=== PATIENT | female | born 1990 | race Caucasian/White ===

== ENCOUNTER → 2017-12-06 15:48 | Outpatient (CLI) | payer MEDICAID, SELFPAY ==
[2017-12-06 17:13] LABS: ALB/GLOB Ratio 0.7 RATIO (0.9-2.4); AST(SGOT) 15 U/L (15-37); Alanine Aminotransfer ALT/SGPT 13 U/L (13-56); Albumin, Serum 2.7 g/dL (3.2-5.0); Alkaline Phosphatase 71 U/L (45-117); Anion Gap 9 (5-15); BUN 7 mg/dL (7-18); BUN/Creat Ratio 13.9 RATIO (10-20); Calcium,Total 8.5 mg/dL (8.5-10.1); Chloride 107 mmol/L (98-107); EST Glomerular Filtration Rate 154 mL/min (>60); Est Glom Filt Rate - Afr Amer 186 mL/min (>60); Glucose 88 mg/dL (74-106); Potassium 3.7 mmol/L (3.5-5.1); Protein, Total 6.7 g/dL (6.4-8.2); Sodium Level 140 mmol/L (136-145)
== END ==
PROVIDERS: Visit Provider Obstetrics & Gynecology
DX: Z87.59 Personal history of other complications of pregnancy, childbirth and the puerperium (principal)
CPT/HCPCS: 36415; 80053

== ENCOUNTER → 2017-12-06 18:02 | Outpatient (CLI) | payer MEDICAID, SELFPAY ==
[2017-12-06 18:57] LABS: Protein:Creat Ratio 160 mg/g CRE (0-200)
== END ==
PROVIDERS: Visit Provider Obstetrics & Gynecology
DX: O10.919 Unspecified pre-existing hypertension complicating pregnancy, unspecified trimester (principal); Z3A.00 Weeks of gestation of pregnancy not specified; Z87.59 Personal history of other complications of pregnancy, childbirth and the puerperium
CPT/HCPCS: 36415; 80053; 82570; 84156

== ENCOUNTER → 2017-12-21 10:52 | Outpatient (CLI) | payer MEDICAID, SELFPAY ==
[2017-12-21 12:11] LABS: Absolute Lymphocyte Count 1.91 X10^3/ul (0.83-4.51); Absolute Neutrophil Count 7.3 X10^3/uL (2.0-7.7); Basophil# 0.04 X10^3/uL; Basophil% 0.4 % (0-1); Eosinophil# 0.19 X10^3/uL; Eosinophils% 1.9 % (0-5); Hematocrit 34.2 % (37-47); Hemoglobin 10.9 g/dl (12.0-15.0); Lymphocyte # 1.91 X10^3/ul (4.0); Lymphocyte % 18.8 % (19-41); Mean Corp Hgb Conc 31.9 g/gl (32-36); Mean Corpuscular Hgb 27.7 pg (27.0-32.0); Mean Corpuscular Volume 86.8 fL (81-99); Mean Platelet Vol. 9.9 fl (6.2-12.0); Monocyte# 0.66 X10^3/uL; Monocyte% 6.5 % (0-10); Neutrophil % 71.9 % (47-70); Platelet Count 240 K/mm3 (150-450); RBC Distribution Width CV 12.8 % (11.6-14.6); RBC Distribution Width SD 39.7 fl (35.1-43.9); Red Blood Count 3.94 M/mm3 (4.2-5.4); White Blood Count 10.2 K/mm3 (4.4-11.0)
[2017-12-21 12:15] LABS: POSITIVE COUNT NO; POSITIVE DIFFERENTIAL NO; POSITIVE MORPHOLOGY NO
[2017-12-21 12:27] LABS: Glucose Challenge Gest 1H 50g 87 mg/dL (70-140)
== END ==
PROVIDERS: Nurse Practitioner Women's Health; Visit Provider Obstetrics & Gynecology
DX: O09.90 Supervision of high risk pregnancy, unspecified, unspecified trimester (principal); Z3A.00 Weeks of gestation of pregnancy not specified
CPT/HCPCS: 36415; 82950; 85025

== ENCOUNTER → 2017-12-21 12:37 | Outpatient (CLI) | payer MEDICAID, SELFPAY | PROVIDERS: Visit Provider Nurse Practitioner Women's Health | DX: O09.90 Supervision of high risk pregnancy, unspecified, unspecified trimester (principal); O10.919 Unspecified pre-existing hypertension complicating pregnancy, unspecified trimester; Z98.891 History of uterine scar from previous surgery; Z87.59 Personal history of other complications of pregnancy, childbirth and the puerperium; Z3A.26 26 weeks gestation of pregnancy | CPT/HCPCS: 36415; 82950; 85025; 87086; 87088 ==

== ENCOUNTER → 2018-01-26 11:40 | Outpatient (CLI) | payer MEDICAID, SELFPAY ==
--- NOTE | 2018-01-26 11:40 | DT_ITS ---
This patient was seen during an EMR downtime January 23, 2018 - January 30, 2018. This patient may have a combination of paper and electronic documentation or all paper documentation. All documentation is viewable within the e-chart portion of [employer] for each patient visit.
[2018-01-31 03:50] LABS: Protein:Creat Ratio 250 mg/g CRE (0-200)
[2018-01-31 03:51] LABS: BUN 7 mg/dL (7-18); Glucose 100 mg/dL (74-106)
[2018-01-31 03:52] LABS: ALB/GLOB Ratio 0.6 RATIO (0.9-2.4); AST(SGOT) 16 U/L (15-37); Alanine Aminotransfer ALT/SGPT 15 U/L (13-56); Albumin, Serum 2.6 g/dL (3.2-5.0); Alkaline Phosphatase 101 U/L (45-117); Anion Gap 9 (5-15); BUN/Creat Ratio 11.7 RATIO (10-20); Chloride 105 mmol/L (98-107); EST Glomerular Filtration Rate 127 mL/min (>60); Est Glom Filt Rate - Afr Amer 154 mL/min (>60); Globulin 4.2 g/dL (2.2-4.2); LDH 197 U/L (84-246); Potassium 3.3 mmol/L (3.5-5.1); Protein, Total 6.8 g/dL (6.4-8.2); Sodium Level 139 mmol/L (136-145); Uric Acid 2.9 mg/dL (2.6-6.0)
[2018-01-31 03:58] LABS: ROM Internal Control Test YES-OK TO RESULT pt. (Internal QC); ROM Patient Test Negative (Negative)
[2018-01-31 04:02] LABS: Hematocrit 34.9 % (37-47); Mean Corp Hgb Conc 31.5 g/gl (32-36); Mean Corpuscular Hgb 26.3 pg (27.0-32.0); Mean Corpuscular Volume 83.3 fL (81-99); Mean Platelet Vol. 9.3 fl (6.2-12.0); Platelet Count 263 K/mm3 (150-450); RBC Distribution Width CV 12.8 % (11.6-14.6); RBC Distribution Width SD 38.5 fl (35.1-43.9); Red Blood Count 4.19 M/mm3 (4.2-5.4); White Blood Count 10.9 K/mm3 (4.4-11.0)
[2018-01-31 04:03] LABS: Absolute Lymphocyte Count 2.02 X10^3/ul (0.83-4.51); Absolute Neutrophil Count 8.2 X10^3/uL (2.0-7.7); Basophil# 0.03 X10^3/uL; Basophil% 0.3 % (0-1); Eosinophils% 0.9 % (0-5); Lymphocyte # 2.02 X10^3/ul (4.0); Lymphocyte % 18.5 % (19-41); Monocyte# 0.52 X10^3/uL; Monocyte% 4.8 % (0-10); Neutrophil # 8.22 X10^3/uL (2.7-7.7); POSITIVE COUNT NO; POSITIVE DIFFERENTIAL NO; POSITIVE MORPHOLOGY NO
== END ==
PROVIDERS: Visit Provider Nurse Practitioner Women's Health
DX: O09.93 Supervision of high risk pregnancy, unspecified, third trimester (principal); I10 Essential (primary) hypertension; N89.8 Other specified noninflammatory disorders of vagina; Z3A.00 Weeks of gestation of pregnancy not specified
CPT/HCPCS: 80053; 82570; 83615; 84112; 84156; 84550; 85025

== ENCOUNTER 2018-01-30 12:10 | Outpatient (CLI) | payer MEDICAID, SELFPAY ==
--- NOTE | 2018-01-30 12:10 | DT_ITS ---
This patient was seen during an EMR downtime January 23, 2018 - January 30, 2018. This patient may have a combination of paper and electronic documentation or all paper documentation. All documentation is viewable within the e-chart portion of [facility] for each patient visit.
--- NOTE | 2018-01-30 12:28 | US_ITS ---
STUDY: SECOND AND THIRD TRIMESTER OBSTETRICAL ULTRASOUND - LIMITED REASON FOR EXAM: Female, 27 years old. dating. LMP: June 16, 2017. PRIOR ULTRASOUND: None. TECHNIQUE: Transabdominal and transvaginal ultrasound evaluation was performed. FINDINGS: There is a single intrauterine fetus. The fetus is in a cephalic presentation. There is demonstrated cardiac activity with a heart rate of 124 bpm. There is a normal amniotic fluid volume. The largest amniotic fluid pocket measures 6.8 cm. The amniotic fluid index (CARIN) is 14.7 cm. The placenta is anterior in location and is not low lying. There are Grade 1 placental changes. The cervix measures 3.4 cm cm in length on transvaginal exam. BIOMETRY: BPD: 8.1 cm: 32 weeks, 5 days HC: 30.1 cm: 33 weeks, 3 days AC: 28.1 cm: 32 weeks, 1 days FL: 6.0 cm: 31 weeks, 2 days Age by LMP: 32 weeks, 4 days. AMARI by LMP: March 23, 2018. age by US: 32 weeks, 3 days. AMARI by US: March 24, 2018. Estimated weight: 1888 grams, +/- 276 grams, 24 percentile. US/OB Limited With Biometrics IMPRESSION: Single intrauterine gestation 32 weeks 3 days with estimated due date March 24, 2018. Estimated weight 1888 g. Electronically Signed: Rubens Cardona MD at 15:15 EDT , Service support ,
[2018-01-30 12:30] VITALS: BMI 24.7
[2018-01-30 13:01] LABS: Hemoglobin 11.1 g/dl (12.0-15.0); Mean Corp Hgb Conc 32.6 g/gl (32-36); Mean Corpuscular Hgb 26.5 pg (27.0-32.0); Mean Corpuscular Volume 81.1 fL (81-99); Mean Platelet Vol. 9.3 fl (6.2-12.0); Platelet Count 254 K/mm3 (150-450); RBC Distribution Width CV 12.9 % (11.6-14.6); RBC Distribution Width SD 37.1 fl (35.1-43.9); Red Blood Count 4.19 M/mm3 (4.2-5.4); White Blood Count 12.5 K/mm3 (4.4-11.0)
[2018-01-30] MEDS: Betamethasone/Betamethasone 30 MG/5 ML Vial 12 MG IM (13:01)
[2018-01-30 13:03] LABS: Scan Indicated on CBC? Y/N NO
[2018-01-30 13:06] LABS: Protein, Urine (Random) < 6.0 mg/dL (<11.9); Protein:Creat Ratio 379 mg/g CRE (0-200)
[2018-01-30 13:07] LABS: International Normalized Ratio 0.9; Prothrombin Time (Protime)PT. 12.3 SECONDS (11.7-14.9)
[2018-01-30 13:09] LABS: AST(SGOT) 20 U/L (15-37); Alanine Aminotransfer ALT/SGPT 12 U/L (13-56); Creatinine, Serum 0.45 mg/dL (0.55-1.02); EST Glomerular Filtration Rate 177 mL/min (>60); Est Glom Filt Rate - Afr Amer 214 mL/min (>60); Uric Acid 3.4 mg/dL (2.6-6.0)
--- NOTE | 2018-02-01 04:52 | OB.TRI.NOTE ---
- Problem List (1) Preeclampsia complicating hypertension Status: Acute Comment: 379 mg Pr/Cr ratio, BMZ 01/30- 2x weekly visits with weekly nst and david, deliver at 37 weeks History of Present Illness Date of Service: 01/30/18 Was patient seen by the physician?: Yes Reason For Visit: R/O PRE ECLAMPSIA Allergies No Known Allergies Allergy (Verified 01/09/18 11:45) - Pertinent Past Medical History Medical History: Past Medical History (Last Reviewed 01/09/18 @ 11:45 by Cecile Mckeon) Abnormal Pap smear of cervix 2006 Surgical History: Past Surgical History (Last Reviewed 01/09/18 @ 11:45 by Cecile Mckeon) S/P x1 NST - FHR Rate Baby A Baseline: 140 Variability:: Moderate Accelerations:: 15 x 15 Decelerations:: None NST Reactive:: Yes FHR Category:: Category I Uterine Activity:: no regular Impression/Plan 27 yo @ 33 weeks presents with chtn and superimposed preeclampsia recommend BMZ and labs, US done. reassuring, dc home fu in office at end of the week
== END 2018-01-30 16:16 | disposition home or self-care (01) ==
LOC: WPOUT 12:18 → WP 13:01
PROVIDERS: Visit Provider Obstetrics & Gynecology
DX: O11.3 Pre-existing hypertension with pre-eclampsia, third trimester (principal); Z3A.33 33 weeks gestation of pregnancy
CPT/HCPCS: 36415; 59025; 59050; 76816; 82565; 82570; 84156; 84450; 84460; 84550; 85027; 85610; 85730; 96372; 99218; G0378; J0702

== ENCOUNTER 2018-01-31 13:40 | Outpatient (CLI) | payer MEDICAID, SELFPAY ==
[2018-01-31 13:57] VITALS: BMI 24.5
[2018-01-31 14:04] VITALS: BP 131/80; PULSE 121; RESP 16; TEMP 36.3; BMI 24.5
[2018-01-31] MEDS: Betamethasone/Betamethasone 30 MG/5 ML Vial 12 MG IM (14:26)
--- NOTE | 2018-02-04 02:52 | OB.TRI.NOTE ---
History of Present Illness Date of Service: 01/31/18 Was patient seen by the physician?: No Reason For Visit: CELESTONE Date of Service: 01/31/18 Allergies No Known Allergies Allergy (Verified 02/03/18 09:05) - Pertinent Past Medical History Medical History: Past Medical History (Last Reviewed 02/03/18 @ 09:06 by Maggy Reilly) Abnormal Pap smear of cervix 2006 Surgical History: Past Surgical History (Last Reviewed 02/03/18 @ 09:06 by Maggy Reilly) S/P x1 Physical Exam Vitals: Vital Signs Temp Pulse Resp BP 97.4 F L 121 H 16 131/80 H 01/31/18 14:04 01/31/18 14:04 01/31/18 14:04 01/31/18 14:04 Impression/Plan celestone dose 2 given
== END 2018-01-31 14:30 | disposition home or self-care (01) ==
LOC: WPOUT 13:47 → WP 13:48
PROVIDERS: Visit Provider Obstetrics & Gynecology
DX: Z34.90 Encounter for supervision of normal pregnancy, unspecified, unspecified trimester (principal)
CPT/HCPCS: 96372; 99218; G0378; J0702

== ENCOUNTER → 2018-02-07 13:40 | Outpatient (CLI) | payer MEDICAID, SELFPAY ==
[2018-02-07 14:26] LABS: Protein, Urine (Random) < 6.0 mg/dL (<11.9); Protein:Creat Ratio 227 mg/g CRE (0-200)
[2018-02-07 14:27] LABS: Absolute Lymphocyte Count 2.93 X10^3/ul (0.83-4.51); Absolute Neutrophil Count 10.9 X10^3/uL (2.0-7.7); Basophil# 0.02 X10^3/uL; Basophil% 0.1 % (0-1); Eosinophil# 0.07 X10^3/uL; Eosinophils% 0.5 % (0-5); Hematocrit 34.3 % (37-47); Hemoglobin 10.9 g/dl (12.0-15.0); Lymphocyte # 2.93 X10^3/ul (4.0); Lymphocyte % 19.4 % (19-41); Mean Corp Hgb Conc 31.8 g/gl (32-36); Mean Corpuscular Hgb 25.6 pg (27.0-32.0); Mean Corpuscular Volume 80.5 fL (81-99); Mean Platelet Vol. 9.3 fl (6.2-12.0); Monocyte# 1.04 X10^3/uL; Monocyte% 6.9 % (0-10); Neutrophil # 10.91 X10^3/uL (2.7-7.7); Neutrophil % 72.4 % (47-70); POSITIVE COUNT NO; POSITIVE DIFFERENTIAL NO; POSITIVE MORPHOLOGY NO; Platelet Count 261 K/mm3 (150-450); RBC Distribution Width CV 13.3 % (11.6-14.6); RBC Distribution Width SD 38.7 fl (35.1-43.9); Red Blood Count 4.26 M/mm3 (4.2-5.4); White Blood Count 15.1 K/mm3 (4.4-11.0)
[2018-02-07 15:06] LABS: ALB/GLOB Ratio 0.6 RATIO (0.9-2.4); AST(SGOT) 16 U/L (15-37); Alanine Aminotransfer ALT/SGPT 16 U/L (13-56); Albumin, Serum 2.7 g/dL (3.2-5.0); Alkaline Phosphatase 111 U/L (45-117); Anion Gap 9 (5-15); BUN 7 mg/dL (7-18); BUN/Creat Ratio 11.2 RATIO (10-20); Calcium,Total 8.7 mg/dL (8.5-10.1); Chloride 105 mmol/L (98-107); Creatinine, Serum 0.62 mg/dL (0.55-1.02); EST Glomerular Filtration Rate 120 mL/min (>60); Est Glom Filt Rate - Afr Amer 146 mL/min (>60); Globulin 4.4 g/dL (2.2-4.2); Glucose 106 mg/dL (74-106); LDH 199 U/L (84-246); Potassium 3.6 mmol/L (3.5-5.1); Protein, Total 7.1 g/dL (6.4-8.2); Sodium Level 138 mmol/L (136-145); Uric Acid 3.8 mg/dL (2.6-6.0)
[2018-02-08 09:46] LABS: HIV - WCH Non-Reactive (Nonreactive); Rubella IgG 82.6 IU/mL
[2018-02-08 12:14] LABS: HEPATITIS B SURFACE AG Negative (Negative)
[2018-02-10 03:47] LABS: Rapid Plasmin Reagin (RPR) NONREACTIVE (NONREACTIVE)
== END ==
PROVIDERS: Nurse Practitioner Women's Health; Visit Provider Obstetrics & Gynecology
DX: O10.919 Unspecified pre-existing hypertension complicating pregnancy, unspecified trimester (principal); O11.9 Pre-existing hypertension with pre-eclampsia, unspecified trimester; Z87.59 Personal history of other complications of pregnancy, childbirth and the puerperium; Z98.891 History of uterine scar from previous surgery; O09.90 Supervision of high risk pregnancy, unspecified, unspecified trimester; Z3A.26 26 weeks gestation of pregnancy
CPT/HCPCS: 36415; 80053; 82570; 83615; 84156; 84550; 85025; 86592; 86703; 86762; 86850; 86900; 87340

== ENCOUNTER → 2018-02-14 17:07 | Outpatient (CLI) | payer MEDICAID, SELFPAY ==
[2018-02-14 17:49] LABS: Protein, Urine (Random) 15.5 mg/dL (<11.9); Protein:Creat Ratio 397 mg/g CRE (0-200)
== END ==
PROVIDERS: Visit Provider Obstetrics & Gynecology
DX: O10.919 Unspecified pre-existing hypertension complicating pregnancy, unspecified trimester (principal); Z3A.00 Weeks of gestation of pregnancy not specified
CPT/HCPCS: 82570; 84156

== ENCOUNTER → 2018-02-21 17:27 | Outpatient (CLI) | payer MEDICAID, SELFPAY ==
[2018-02-21 20:01] LABS: Group B Strep DNA By PCR Negative (Negative); Internal Control PASS; Probe Check PASS; Specimen Processing Control PASS
== END ==
PROVIDERS: Visit Provider Obstetrics & Gynecology
DX: O11.9 Pre-existing hypertension with pre-eclampsia, unspecified trimester (principal)
CPT/HCPCS: 87081; 87653

== ENCOUNTER 2018-03-03 07:30 | Inpatient (IN) | payer MEDICAID, SELFPAY ==
[2018-03-03 07:36] VITALS: BMI 26.2
[2018-03-03] MEDS: Lactated Ringers 1,000 ML 50 ML IV ×2 (07:46→12:13)
[2018-03-03 08:17] LABS: Mean Corp Hgb Conc 32.4 g/gl (32-36); Mean Corpuscular Hgb 25.8 pg (27.0-32.0); Mean Corpuscular Volume 79.6 fL (81-99); Mean Platelet Vol. 9.1 fl (6.2-12.0); Platelet Count 268 K/mm3 (150-450); RBC Distribution Width SD 39.5 fl (35.1-43.9); Red Blood Count 4.27 M/mm3 (4.2-5.4)
[2018-03-03 08:23] LABS: Scan Indicated on CBC? Y/N NO
[2018-03-03] MEDS: Oxytocin 30 units/NS 500 ml 30 UNITS/500 ML IV.SOLN IV (08:36)
[2018-03-03 08:37] LABS: AST(SGOT) 19 U/L (15-37); Alanine Aminotransfer ALT/SGPT 15 U/L (13-56); Creatinine, Serum 0.67 mg/dL (0.55-1.02); EST Glomerular Filtration Rate 110 mL/min (>60); Est Glom Filt Rate - Afr Amer 133 mL/min (>60); Estimated Creatinine Clearance 103.41 ml/min; Uric Acid 3.6 mg/dL (2.6-6.0)
[2018-03-03] MEDS: fentaNYL-bupivacaine (epidural) 100 ML BAG EPIDURAL (13:53)
[2018-03-03] MEDS: Oxytocin 30 units/NS 500 ml 30 UNITS/500 ML IV.SOLN 334 UNITS IV (14:56)
[2018-03-03] MEDS: Oxytocin 30 units/NS 500 ml 30 UNITS/500 ML IV.SOLN 167 UNITS IV (15:26)
[2018-03-03 17:03] VITALS: BP 115/67; PULSE 89; RESP 18; TEMP 36.4
--- NOTE | 2018-03-03 18:56 | PCM.HP.OB ---
- Problem List (1) Preeclampsia complicating hypertension Status: Acute Comment: weekly labs, 2x weekly visits with weekly nst and david, deliver at 37 weeks 379 mg Pr/Cr ratio, BMZ 01/30- (2) Anemia affecting Status: Acute Qualifiers: Comment: check cbc monthly (3) Supervision of high risk , antepartum Status: Acute Comment: PRR AMARI 03/23/18 girl meaghan Steel, Malik bañuelos (4) History of delivery Status: Acute Comment: x1, previous prior, education given and consent signed (5) History of severe pre-eclampsia Status: Acute Comment: baby asa, baseline labs done at 24 weeks, ekg (6) Chronic hypertension during Status: Acute Comment: no meds now but has been on in the past, baseline labs done at 24 weeks, ekg; home BPs History Date of Admission: 03/03/18 Final AMARI: 03/23/18 Gestational age: 37 Weeks and 1 Days History of this : This is a 27 year-old, , at 37 weeks gestational age iol preeclampsia si on chtn labs WNL pitocin, arom when able epidural when desired consented for Medical History: Medical History (Last Reviewed 02/28/18 @ 13:42 by Maggy Reilly) Abnormal Pap smear of cervix R87.619 2006 Surgical History: Surgical History (Last Reviewed 02/28/18 @ 13:42 by Maggy Reilly) S/P Z98.891 x1 Allergies No Known Allergies Allergy (Verified 02/28/18 13:42) Smoking Status: Never smoker History Past Pregnancies: Past Pregnancies Delivery Date Name GA/Weeks Outcome Route Weight Infant Gender Labor Length Anesthesia Delivery Location Provider FOB Labs: Mom's Labs & Results 03/03/18 03/03/18 03/03/18 07:50 07:50 07:50 WBC 13.0 H RBC 4.27 Hgb 11.0 L Hct 34.0 L MCV 79.6 L MCH 25.8 L MCHC 32.4 RDW 14.0 RDW Differential 39.5 Plt Count 268 MPV 9.1 Creatinine 0.67 Estim Creat Clear Calc 103.41 Est GFR (MDRD) Af Amer 133 Est GFR (MDRD) Non-Af 110 Uric Acid 3.6 AST 19 ALT 15 Blood Type O POSITIVE Antibody Screen NEGATIVE Course Did the patient receive Yes care? Labs Blood Type: O RH: POSITIVE RPR/VDRL/Syphilis Nonreactive Rubella status Immune HbSAg Negative Date Done: 02/07/18 Chlamydia Negative Gonorrhea Negative HIV/AIDS Non-Reactive Group B Strep: Negative Current Obstetrical History Gestational Diabetes No Incompetent Cervix No Infertility No IUGR No Macrosomia No Hypertension/Pre-eclampsia Yes Placenta Previa/Abruption No PTL/PROM No Uterine anomaly No Oligohydramnios No Polyhydramnios No Multiple gestation No Past Medical History Asthma Yes: exercise induced Diabetes No Hypertension Yes: chronic Heart disease No Mitral valve prolapse No Neurologic/Seizure disorder/ No Migraines Kidney disease No Liver disease No Varicosities No Clotting disorders/Hx of DVT No Thyroid Dysfunction No Other medical diseases No Psychiatric disorders No Major trauma No Abnormal PAP smear Yes: 2006 normal since Sleep apnea No Mammogram in the last 2 years No Social History Marital Status: Alleged father malik figueroa Hx Smoking No Smoking Status Never smoker Expected Delivery Method: Review of Systems Constitutional: Denies: Fever, Malaise Eyes: Denies: Blurred vision, Vision Change HEENT: Denies: Head Aches, Visual Changes Cardiovascular: Denies: Chest Pain, Palpitations Respiratory: Denies: Cough, Shortness of Breath, Wheezing Gastrointestinal: Denies: Abdominal Pain, Diarrhea, Nausea, Vomiting Genitourinary: Denies: Dysuria, Hematuria Musculoskeletal: Denies: Joint Pain, Muscle pain Skin: Denies: Lesions, Rash Neurological: Denies: Blurred vision, Focal weakness, Headaches Psychiatric: Denies: Anxiety, Depression Endocrine: Denies: Heat/ Cold Intolerance Hematologic/ Lymphatic: Denies: Easy Bruising, Easy Bleeding Physical Exam Vitals: Vital Signs Temp Pulse Resp BP 97.6 F L 89 18 115/67 03/03/18 17:03 03/03/18 17:03 03/03/18 17:03 03/03/18 17:03 General: Alert, Cooperative, No apparent distress HEENT: Atraumatic, Normocephalic. Negative for: Thyromegaly, Lymphadenopathy Cardiovascular: Regular rate Lungs: Normal air movement Abdomen: Soft, Non Tender, Gravid Neurological: Deep Tendon Reflexes 2+/4 and Symmetrical, Neuro grossly intact. 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 Negative for: Vulvar lesions Estimated gestational size: Appropriate for gestational size Presentation: Cephalic Cervix Dilation (cm): 4 Assessment/Plan All Active Problems (Last Reviewed 02/28/18 @ 13:42 by Maggy Reilly) Preeclampsia complicating hypertension (Acute) Anemia affecting (Acute) Supervision of high risk , antepartum (Acute) History of delivery (Acute) History of severe pre-eclampsia (Acute) Chronic hypertension during (Acute) This is a 27 year-old, , at 37 weeks gestational age IOL preeclampsia on chtn discussed TOLAC - desires to proceed with IOL pitocin gbs neg normal pree labs
--- NOTE | 2018-03-03 19:07 | PCM.OB.VAG ---
- Problem List (1) Preeclampsia complicating hypertension Status: Acute Comment: weekly labs, 2x weekly visits with weekly nst and david, deliver at 37 weeks 379 mg Pr/Cr ratio, BMZ 01/30- (2) Anemia affecting Status: Acute Qualifiers: Comment: check cbc monthly (3) Supervision of high risk , antepartum Status: Acute Comment: PRR AMARI 03/23/18 girl meaghan Steel, Malik bañuelos (4) History of delivery Status: Acute Comment: x1, previous prior, education given and consent signed (5) History of severe pre-eclampsia Status: Acute Comment: baby asa, baseline labs done at 24 weeks, ekg (6) Chronic hypertension during Status: Acute Comment: no meds now but has been on in the past, baseline labs done at 24 weeks, ekg; home BPs Vaginal Delivery Maternal Presentation: Medically Indicated Induction iol pre eclampsia on chtn Method of Induction: Pitocin Medical Reason for Induction: Preeclampsia, eclampsia Amniotic Membrane Rupture Type: Artificial Amniotic Fluid Description: Clear Final AMARI: 03/23/18 Gestational age: 37 Weeks and 1 Days Date of Procedure: 03/03/18 Pre-Operative Diagnosis: iol Post-Operative Diagnosis: same Surgery/ Procedure Performed: Spontaneous Vaginal Delivery Type of Anesthesia: Epidural Description of Procedure: went to complete delivered belinda followed by anterior posterior shoulders without complication. delayed cord clamping and placenta spontaneously delivered. 2nd degree perineal laceration repaired in the usual fashion. ebl 250 cc. Presentation: BELINDA Placental Delivery Description: Spontaneous Placenta Disposition: [facility] Cord Vessel Description: 3 Vessels Cord Entanglement: None Infant A gender: Female Episiotomy Description: None Laceration: Perineal Extension/lac, 2nd degree Medications given after delivery: IV Pitocin Complications: None
[2018-03-03 20:30] VITALS: BP 105/60; PULSE 85; RESP 16; TEMP 36.7; O2SAT 98
[2018-03-03] MEDS: Naproxen 250 MG Tablet PO (21:34)
[2018-03-03] MEDS: Acetaminophen 500 MG Tablet 1000 MG PO (22:55)
[2018-03-03 23:06] VITALS: BP 109/63; PULSE 80; RESP 16; TEMP 36.9
[2018-03-04 04:00] VITALS: BP 90/52; PULSE 71; RESP 16; TEMP 36.4
--- NOTE | 2018-03-04 08:14 | PCM.PN.OB ---
Subjective: doing well no complaints - Physical Exam General: Alert, Oriented x3 Vital Signs Temp Pulse Resp BP Pulse Ox 97.5 F L 71 16 90/52 L 98 03/04/18 04:00 03/04/18 04:00 03/04/18 04:00 03/04/18 04:00 03/03/18 20:30 Oxygen Delivery Method Room Air Weight: 148 lb 5.938 oz Body Mass Index (BMI) 26.2 Intake and Output for Last 24 Hours 03/02/18 03/03/18 03/04/18 23:59 23:59 23:59 Intake Total 2049 Output Total 1899 / 1899 Balance 150 / 150 Laboratory Tests Past 24 Hrs 03/03/18 03/03/18 03/03/18 07:50 07:50 07:50 WBC 13.0 H RBC 4.27 Hgb 11.0 L Hct 34.0 L MCV 79.6 L MCH 25.8 L MCHC 32.4 RDW 14.0 RDW Differential 39.5 Plt Count 268 MPV 9.1 Creatinine 0.67 Estim Creat Clear Calc 103.41 Est GFR (MDRD) Af Amer 133 Est GFR (MDRD) Non-Af 110 Uric Acid 3.6 AST 19 ALT 15 Blood Type O POSITIVE Antibody Screen NEGATIVE Medical Necessity - Tobacco Use Smoking Status: Never smoker Assessment/Plan All Active Problems (Last Reviewed 02/28/18 @ 13:42 by Maggy Reilly) Preeclampsia complicating hypertension (Acute) Anemia affecting (Acute) Supervision of high risk , antepartum (Acute) History of delivery (Acute) History of severe pre-eclampsia (Acute) Chronic hypertension during (Acute) s/p doing well routine care dc home
--- NOTE | 2018-03-04 08:16 | PCM.DCVAG ---
Discharge Diet: No Restrictions Discharge Activity: Return to Normal Activity, May not drive while taking narcotic pain medications., May Shower May resume sexual activity in: 4-6 weeks Call your doctor if your incision/area has: Continuous Slow Oozing, Sudden Increased Bleeding, Increased Pain/ Swelling, Increased Redness, Foul Smelling Discharge Additional Instructions: If you experience any of the following, contact your healthcare provider. Bleeding that soaks a pad every hour for 2 hours Fever 100.4 or higher Unrelieved incision or abdominal pain Swelling, redness, discharge or bleeding from your incision or episiotomy site Your incision begins to separate Problems urinating (including inability to urinate or burning while urinating). Visual changes Severe headache Flu-like symptoms Pain or redness in one of both of your breasts Pain, warmth, tenderness or swelling in your legs, especially the calf area Frequent nausea and vomiting Symptoms of depression or anxiety If you experience any of the following, call 911 or go to the nearest Emergency Room. Chest pain Problems breathing Seizure activity Partial or complete paralysis of a body part, slurred speech, weakness or drooping of the face, or a sudden inability to walk or hold your balance Allergies/Adverse Reactions: Allergies No Known Allergies Allergy (Verified 02/28/18 13:42) Please Follow Up With: Marlene Dixon MD - [phone] When: Call to make an appointment with your doctor in 6 weeks. If you had elevated Blood pressure or 4th degree laceration you will need to be seen in 2 weeks. Primary Care Physician: Care Physician,No Primary [Primary Care Provider] - Test Results: Test results from this visit will be discussed in further detail at your follow-up appointment, if applicable.
--- NOTE | 2018-03-04 08:17 | DCINST_ITS ---
Discharge Diet: No Restrictions Discharge Activity: Return to Normal Activity, May not drive while taking narcotic pain medications., May Shower May resume sexual activity in: 4-6 weeks Call your doctor if your incision/area has: Continuous Slow Oozing, Sudden Increased Bleeding, Increased Pain/ Swelling, Increased Redness, Foul Smelling Discharge Additional Instructions: If you experience any of the following, contact your healthcare provider. * Bleeding that soaks a pad every hour for 2 hours * Fever 100.4 or higher * Unrelieved incision or abdominal pain * Swelling, redness, discharge or bleeding from your incision or episiotomy site * Your incision begins to separate * Problems urinating (including inability to urinate or burning while urinating) . * Visual changes * Severe headache * Flu-like symptoms * Pain or redness in one of both of your breasts * Pain, warmth, tenderness or swelling in your legs, especially the calf area * Frequent nausea and vomiting * Symptoms of depression or anxiety If you experience any of the following, call 911 or go to the nearest Emergency Room. * Chest pain * Problems breathing * Seizure activity * Partial or complete paralysis of a body part, slurred speech, weakness or drooping of the face, or a sudden inability to walk or hold your balance Allergies/Adverse Reactions: Allergies No Known Allergies Allergy (Verified 02/28/18 13:42) Please Follow Up With: Marlene Dixon MD - [phone] When: Call to make an appointment with your doctor in 6 weeks. If you had elevated Blood pressure or 4th degree laceration you will need to be seen in 2 weeks. Primary Care Physician: Care Physician,No Primary [Primary Care Provider] - Test Results: Test results from this visit will be discussed in further detail at your follow- up appointment, if applicable.
[2018-03-04 08:20] VITALS: BP 111/81; PULSE 81; RESP 16; TEMP 35.9; O2SAT 98
[2018-03-04] MEDS: Senna/Docusate Sodium 1 Tablet PO (08:51)
[2018-03-04] MEDS: Naproxen 250 MG Tablet PO ×2 (08:51→21:40)
--- NOTE | 2018-03-04 11:26 | NURSING ---
Addendum for 0840 with assessment - pt. reports passing clot when she got up to use restroom prior to assessment - had left pad in bathroom for nursing to see. Clot is appx. size of egg - reassured pt. about this, and pt. to call if she cont. to pass clots or if they are bigger than an egg. Pt. verbalized understanding.
[2018-03-04 16:30] VITALS: BP 114/89; PULSE 78; RESP 20; TEMP 36.9; O2SAT 99
[2018-03-04 19:45] VITALS: BP 112/71; PULSE 74; RESP 18; TEMP 36.4; O2SAT 96
--- NOTE | 2018-03-04 19:45 | NURSING ---
Bedside report given at 1915. Pt c/o feeling warm and seeing floaters in vision when outside on walk with significant other. Stated symptoms resolved quickly. Previous RN notified MD, no further orders unless recurrent symptoms. VSS. Blood pressure WNL. Pt educated to let this RN know overnight if feeling symptoms again. Will monitor.
[2018-03-05 02:45] VITALS: BP 103/73; PULSE 73; RESP 16; TEMP 36.6; O2SAT 98
[2018-03-05] MEDS: Acetaminophen 500 MG Tablet 1000 MG PO (02:57)
--- NOTE | 2018-03-05 07:26 | PCM.PN.OB ---
Subjective: doing well no complaints - Physical Exam General: Alert, Oriented x3 Vital Signs Temp Pulse Resp BP Pulse Ox 97.9 F 73 16 103/73 98 03/05/18 02:45 03/05/18 02:45 03/05/18 02:45 03/05/18 02:45 03/05/18 02:45 Oxygen Delivery Method Room Air Weight: 148 lb 5.938 oz Body Mass Index (BMI) 26.2 Intake and Output for Last 24 Hours 03/03/18 03/04/18 03/05/18 23:59 23:59 23:59 Intake Total 2049 Output Total 1899 / 1899 Balance 150 / 150 Medical Necessity - Tobacco Use Smoking Status: Never smoker Assessment/Plan All Active Problems (Last Reviewed 02/28/18 @ 13:42 by Maggy Reilly) Preeclampsia complicating hypertension (Acute) Anemia affecting (Acute) Supervision of high risk , antepartum (Acute) History of delivery (Acute) History of severe pre-eclampsia (Acute) Chronic hypertension during (Acute) s/p doing well no complaints dc home
[2018-03-05 08:15] VITALS: BP 95/71; PULSE 76; RESP 16; TEMP 36.8; O2SAT 96
[2018-03-05] MEDS: Senna/Docusate Sodium 1 Tablet PO (10:31)
[2018-03-05] MEDS: Naproxen 250 MG Tablet PO (10:55)
== END 2018-03-05 11:35 | disposition home or self-care (01) | DRG 372 ==
PROVIDERS: Admitting Provider Obstetrics & Gynecology; Visit Provider Obstetrics & Gynecology
DX: O11.4 Pre-existing hypertension with pre-eclampsia, complicating childbirth (principal); O99.02 Anemia complicating childbirth; Z3A.37 37 weeks gestation of pregnancy; Z37.0 Single live birth; D64.9 Anemia, unspecified; O34.219 Maternal care for unspecified type scar from previous cesarean delivery; N85.8 Other specified noninflammatory disorders of uterus
CPT/HCPCS: 59025; 59050; 82565; 84450; 84460; 84550; 85027; 86850; 86900; 99218; J7120; G0378

== ENCOUNTER → 2018-11-06 15:13 | Outpatient (CLI) | payer MEDICAID, SELFPAY ==
[2018-11-06 14:15] VITALS: BMI 26.2
[2018-11-06 15:48] LABS: Absolute Lymphocyte Count 1.29 X10^3/ul (0.83-4.51); Absolute Neutrophil Count 6.5 X10^3/uL (2.0-7.7); Basophil# 0.02 X10^3/uL; Basophil% 0.2 % (0-1); Eosinophil# 0.06 X10^3/uL; Eosinophils% 0.7 % (0-5); Hematocrit 37.5 % (37-47); Lymphocyte # 1.29 X10^3/ul (4.0); Lymphocyte % 15.2 % (19-41); Mean Corpuscular Hgb 25.2 pg (27.0-32.0); Mean Corpuscular Volume 78.8 fL (81-99); Mean Platelet Vol. 10.8 fl (6.2-12.0); Monocyte# 0.59 X10^3/uL; Monocyte% 6.9 % (0-10); Neutrophil # 6.54 X10^3/uL (2.7-7.7); Neutrophil % 76.9 % (47-70); Platelet Count 249 K/mm3 (150-450); RBC Distribution Width CV 15.8 % (11.6-14.6); RBC Distribution Width SD 43.9 fl (35.1-43.9); Red Blood Count 4.76 M/mm3 (4.2-5.4); White Blood Count 8.5 K/mm3 (4.4-11.0)
[2018-11-06 15:52] LABS: POSITIVE COUNT NO; POSITIVE DIFFERENTIAL NO; POSITIVE MORPHOLOGY NO
[2018-11-06 16:11] LABS: ALB/GLOB Ratio 0.9 RATIO (0.9-2.4); AST(SGOT) 13 U/L (15-37); Alanine Aminotransfer ALT/SGPT 13 U/L (13-56); Albumin, Serum 3.4 g/dL (3.2-5.0); Alkaline Phosphatase 59 U/L (45-117); Anion Gap 4 (5-15); BUN 6 mg/dL (7-18); BUN/Creat Ratio 10.2 RATIO (10-20); Calcium,Total 8.9 mg/dL (8.5-10.1); Chloride 105 mmol/L (98-107); Creatinine, Serum 0.59 mg/dL (0.55-1.02); EST Glomerular Filtration Rate 128 mL/min (>60); Est Glom Filt Rate - Afr Amer 154 mL/min (>60); Globulin 3.9 g/dL (2.2-4.2); Glucose 98 mg/dL (74-106); Potassium 3.7 mmol/L (3.5-5.1); Protein, Total 7.3 g/dL (6.4-8.2); Sodium Level 135 mmol/L (136-145)
[2018-11-06 16:47] LABS: Protein, Urine (Random) 15.2 mg/dL (<11.9); Protein:Creat Ratio 132 mg/g CRE (0-200)
== END ==
PROVIDERS: Referring Provider Obstetrics & Gynecology; Visit Provider Obstetrics & Gynecology
DX: O09.90 Supervision of high risk pregnancy, unspecified, unspecified trimester (principal); O10.919 Unspecified pre-existing hypertension complicating pregnancy, unspecified trimester
CPT/HCPCS: 36415; 80053; 82570; 84156; 85025

== ENCOUNTER → 2018-12-19 | Outpatient (CLI) | payer MEDICAID, SELFPAY ==
[2018-12-04 16:05] VITALS: BMI 26.2
[2018-12-04 16:28] VITALS: BMI 26.2
--- NOTE | 2018-12-19 08:02 | US_ITS ---
STUDY: SECOND AND THIRD TRIMESTER OBSTETRICAL ULTRASOUND REASON FOR EXAM: Female, 28 years old. Routine survey. LMP: July 12, 2018. TECHNIQUE: Transabdominal TECHNICAL QUALITY: Adequate. PRIOR ULTRASOUND: None. FINDINGS: There is a single intrauterine fetus. The fetus is in a breech presentation. There is demonstrated cardiac activity with a heart rate of 139 bpm. There is a normal amniotic fluid volume. The largest amniotic fluid pocket measures 3.8 cm x 3.8 cm. The amniotic fluid index (CARIN) is within normal limits. The placenta is posterior in location and is not low lying. There are Grade 0 placental changes. The cervix measures 3.5 cm in length. The bilateral adnexal regions are normal. BIOMETRY: BPD: 4.87 cm: 20 weeks, 6 days HC: 19.72 cm: 22 weeks, 0 days AC: 16.68 cm: 21 weeks, 5 days FL: 3.28 cm: 22 weeks, 2 days CI: 70% FL/BPD: 78% FL/HC: FL/AC: 23% HC/AC: 1.18 age by current US: 21 weeks, 5 days. AMARI by current US: April 26, 2019. Estimated weight: 459 grams, +/- 67 grams, 9 %. Age by LMP: 22 weeks, 6 days. AMARI by LMP: April 18, 2019. ANATOMY: Gender: Male Cranium: Normal lateral ventricles. Normal choroid plexus. Normal cerebellum. Normal cisterna magna. Normal face, nose and lips. Chest: Normal 4-chamber heart. Abdomen/Pelvis: Normal diaphragm. Normal stomach. Normal abdominal wall. Normal cord insertion. Normal 3 vessel cord. Normal kidneys. Normal bladder. Spine: Normal cervical spine. Normal thoracic spine. Normal lumbar spine. Normal sacrum. Extremities: Normal bilateral upper extremities. Normal bilateral lower extremities. US/OB Anatomy Scan IMPRESSION: Single live intrauterine gestation with a mean gestational age of 21 weeks and 5 days. Electronically Signed: Toby Miller, at 8:49 EDT , Service support ,
[2018-12-19 09:41] LABS: Absolute Lymphocyte Count 1.51 X10^3/ul (0.83-4.51); Absolute Neutrophil Count 8.2 X10^3/uL (2.0-7.7); Basophil# 0.03 X10^3/uL; Basophil% 0.3 % (0-1); Eosinophil# 0.11 X10^3/uL; Hematocrit 36.3 % (37-47); Hemoglobin 11.6 g/dl (12.0-15.0); Lymphocyte # 1.51 X10^3/ul (4.0); Lymphocyte % 14.3 % (19-41); Mean Corpuscular Hgb 25.5 pg (27.0-32.0); Mean Corpuscular Volume 79.8 fL (81-99); Mean Platelet Vol. 9.4 fl (6.2-12.0); Monocyte# 0.61 X10^3/uL; Monocyte% 5.8 % (0-10); Neutrophil # 8.24 X10^3/uL (2.7-7.7); Neutrophil % 78.3 % (47-70); POSITIVE COUNT NO; POSITIVE DIFFERENTIAL NO; POSITIVE MORPHOLOGY NO; Platelet Count 247 K/mm3 (150-450); RBC Distribution Width CV 16.1 % (11.6-14.6); Red Blood Count 4.55 M/mm3 (4.2-5.4); White Blood Count 10.5 K/mm3 (4.4-11.0)
[2018-12-19 09:58] LABS: BUN 6 mg/dL (7-18); BUN/Creat Ratio 10.7 RATIO (10-20); Creatinine, Serum 0.56 mg/dL (0.55-1.02); EST Glomerular Filtration Rate 136 mL/min (>60); Est Glom Filt Rate - Afr Amer 165 mL/min (>60); Glucose 83 mg/dL (74-106)
[2018-12-19 09:59] LABS: ALB/GLOB Ratio 0.7 RATIO (0.9-2.4); AST(SGOT) 14 U/L (15-37); Alanine Aminotransfer ALT/SGPT 14 U/L (13-56); Albumin, Serum 2.9 g/dL (3.2-5.0); Alkaline Phosphatase 80 U/L (45-117); Anion Gap 9 (5-15); Calcium,Total 8.7 mg/dL (8.5-10.1); Chloride 102 mmol/L (98-107); Globulin 4.4 g/dL (2.2-4.2); Protein, Total 7.3 g/dL (6.4-8.2); Sodium Level 138 mmol/L (136-145)
[2018-12-19 11:49] LABS: Protein:Creat Ratio 260 mg/g CRE (0-200)
== END | disposition home or self-care (01) ==
LOC: OPUS 08:05 → PAVLAB 09:23
PROVIDERS: Referring Provider Nurse Practitioner Women's Health; Visit Provider Nurse Practitioner Women's Health
DX: O10.919 Unspecified pre-existing hypertension complicating pregnancy, unspecified trimester (principal); Z3A.00 Weeks of gestation of pregnancy not specified
CPT/HCPCS: 36415; 76805; 80053; 82570; 84156; 85025

== ENCOUNTER → 2019-01-01 | Outpatient (CLI) | payer MEDICAID, SELFPAY ==
[2019-01-01 15:57] VITALS: BMI 26.2
[2019-01-01 16:50] LABS: Protein, Urine (Random) 12.3 mg/dL (<11.9); Protein:Creat Ratio 133 mg/g CRE (0-200)
[2019-01-01 16:59] LABS: Absolute Neutrophil Count 8.2 X10^3/uL (2.0-7.7); Basophil# 0.05 X10^3/uL; Basophil% 0.5 % (0-1); Eosinophil# 0.12 X10^3/uL; Eosinophils% 1.1 % (0-5); Hematocrit 34.4 % (37-47); Lymphocyte % 17.6 % (19-41); Mean Corpuscular Hgb 25.7 pg (27.0-32.0); Mean Corpuscular Volume 80.4 fL (81-99); Mean Platelet Vol. 9.5 fl (6.2-12.0); Monocyte% 4.6 % (0-10); Neutrophil % 75.9 % (47-70); Platelet Count 283 K/mm3 (150-450); RBC Distribution Width CV 15.4 % (11.6-14.6); Red Blood Count 4.28 M/mm3 (4.2-5.4); White Blood Count 10.8 K/mm3 (4.4-11.0)
[2019-01-01 17:03] LABS: POSITIVE COUNT NO; POSITIVE DIFFERENTIAL NO; POSITIVE MORPHOLOGY NO
[2019-01-01 17:23] LABS: ALB/GLOB Ratio 0.6 RATIO (0.9-2.4); AST(SGOT) 14 U/L (15-37); Alanine Aminotransfer ALT/SGPT 12 U/L (13-56); Albumin, Serum 2.7 g/dL (3.2-5.0); Alkaline Phosphatase 76 U/L (45-117); Anion Gap 4 (5-15); BUN 6 mg/dL (7-18); BUN/Creat Ratio 10.5 RATIO (10-20); Calcium,Total 7.9 mg/dL (8.5-10.1); Chloride 107 mmol/L (98-107); Creatinine, Serum 0.57 mg/dL (0.55-1.02); EST Glomerular Filtration Rate 132 mL/min (>60); Est Glom Filt Rate - Afr Amer 159 mL/min (>60); Globulin 4.2 g/dL (2.2-4.2); Glucose 84 mg/dL (74-106); Potassium 3.8 mmol/L (3.5-5.1); Protein, Total 6.9 g/dL (6.4-8.2); Sodium Level 137 mmol/L (136-145)
== END | disposition home or self-care (01) ==
PROVIDERS: Nurse Practitioner Women's Health; Referring Provider Obstetrics & Gynecology; Visit Provider Obstetrics & Gynecology
DX: O10.919 Unspecified pre-existing hypertension complicating pregnancy, unspecified trimester (principal); Z3A.00 Weeks of gestation of pregnancy not specified
CPT/HCPCS: 36415; 80053; 82570; 84156; 85025

== ENCOUNTER → 2019-01-29 | Outpatient (CLI) | payer MEDICAID, SELFPAY ==
[2019-01-29 16:23] VITALS: BMI 26.2
[2019-01-29 17:18] LABS: Absolute Lymphocyte Count 1.91 X10^3/ul (0.83-4.51); Absolute Neutrophil Count 7.4 X10^3/uL (2.0-7.7); Basophil# 0.03 X10^3/uL; Basophil% 0.3 % (0-1); Hematocrit 33.4 % (37-47); Hemoglobin 10.6 g/dl (12.0-15.0); Lymphocyte # 1.91 X10^3/ul (4.0); Lymphocyte % 19.3 % (19-41); Mean Corp Hgb Conc 31.7 g/gl (32-36); Mean Corpuscular Hgb 25.1 pg (27.0-32.0); Mean Platelet Vol. 9.5 fl (6.2-12.0); Monocyte# 0.43 X10^3/uL; Monocyte% 4.3 % (0-10); Neutrophil # 7.41 X10^3/uL (2.7-7.7); Neutrophil % 74.9 % (47-70); Platelet Count 223 K/mm3 (150-450); RBC Distribution Width CV 13.7 % (11.6-14.6); RBC Distribution Width SD 39.3 fl (35.1-43.9); Red Blood Count 4.23 M/mm3 (4.2-5.4); White Blood Count 9.9 K/mm3 (4.4-11.0)
[2019-01-29 17:31] LABS: POSITIVE COUNT NO; POSITIVE DIFFERENTIAL NO; POSITIVE MORPHOLOGY NO
[2019-01-29 17:58] LABS: Glucose Challenge Gest 1H 50g 135 mg/dL (70-140)
== END | disposition home or self-care (01) ==
PROVIDERS: Referring Provider Obstetrics & Gynecology; Visit Provider Obstetrics & Gynecology
DX: O09.90 Supervision of high risk pregnancy, unspecified, unspecified trimester (principal); Z3A.00 Weeks of gestation of pregnancy not specified
CPT/HCPCS: 36415; 82950; 85025

== ENCOUNTER → 2019-02-02 | Outpatient (CLI) | payer MEDICAID, SELFPAY ==
[2019-01-29 16:23] VITALS: BMI 26.2
[2019-02-02 11:10] LABS: Glucose GTT-Gestation. Fasting 79 mg/dL (<105)
[2019-02-02 12:19] LABS: Glucose GTT-Gestational 1 Hr 105 mg/dL (<190)
[2019-02-02 13:49] LABS: Glucose GTT-Gestational 2 Hr 78 mg/dL (<165)
[2019-02-02 14:01] LABS: Glucose GTT-Gestational 3 Hr 115 L (<145)
== END | disposition home or self-care (01) ==
LOC: LAB 10:18
PROVIDERS: Referring Provider Obstetrics & Gynecology; Visit Provider Obstetrics & Gynecology
DX: O99.810 Abnormal glucose complicating pregnancy (principal); Z3A.00 Weeks of gestation of pregnancy not specified
CPT/HCPCS: 36415; 82951; 82952

== ENCOUNTER 2019-02-12 02:47 | Outpatient (CLI) | payer MEDICAID, SELFPAY ==
[2019-01-29 16:23] VITALS: BMI 26.2
[2019-02-12 03:02] VITALS: BMI 24.3
[2019-02-12 03:28] LABS: Color, Urine Yellow (Yellow); Glucose, Dipstick Normal (Normal); Ketone-Dipstick 5 mg/dl (Negative); Leukocyte Esterase-Dipstick 25 /ul (Negative); Nitrite-Dipstick Negative (Negative); Occult Blood-Urine Negative /ul (Negative); Protein-Dipstick 30 mg/dl (Negative); Specific Gravity, Urine 1.015 (1.002-1.030); Urine Bilirubin Dipstick Negative (Negative); Urine Clarity Clear (Clear); Urine Urobilinogen Normal (Normal)
[2019-02-12 03:38] LABS: Bacteria 1+ /hpf (None Seen); Mucous, Urine 3+ /hpf (<or=2+); Red Blood Cells-Urine 5-10 SEEN /hpf (0-5); Squamous Epithelial Cells - UA > 100 SEEN /hpf (5-10); White Blood Cells 0-5 SEEN /hpf (0-5)
[2019-02-12 04:26] LABS: Protein, Urine (Random) 46.5 mg/dL (<11.9); Protein:Creat Ratio 168 mg/g CRE (0-200)
[2019-02-12 05:20] VITALS: RESP 18
--- NOTE | 2019-02-12 09:19 | OB.TRI.PN ---
Progress Notes Date of Service: 02/12/19 Progress Note: seen for N/V/D bps normal here nl urine protein fht 140 moderate variability reactive no decelerations category I tracing [place]: no regular A/P: viral gastroenteritis- continue oral hydration and fu in office in 1 week Laboratory Studies: Laboratory Tests 02/12/19 02/12/19 Range/Units 03:10 03:10 Urine Color Yellow (Yellow) Urine Clarity Clear (Clear) Urine pH 7.0 (5.0 - 8.0) Ur Specific [place] 1.015 (1.002-1.030) Urine Protein 30 H (Negative) mg/dl Urine Glucose (UA) Normal (Normal) mg/dl Urine Ketones 5 H (Negative) mg/dl Urine Occult Blood Negative (Negative) /ul Urine Nitrite Negative (Negative) Urine Bilirubin Negative (Negative) mg/dL Urine Urobilinogen Normal (Normal) mg/dl Ur Leukocyte Esterase 25 H (Negative) /ul Urine RBC 5-10 SEEN (0-5) /hpf Urine WBC 0-5 SEEN (0-5) /hpf Ur Squamous Epith Cells > 100 SEEN (5-10) /hpf Urine Bacteria 1+ (None Seen) /hpf Urine Mucus 3+ (<or=2+) /hpf U Random Total Protein 46.5 H (<11.9) mg/dL Urine Creatinine 277.00 (NO RANGE EST.) mg/dL Protein/Creatinin Ratio 168 (0-200) mg/g CRE
== END 2019-02-12 05:20 | disposition home or self-care (01) ==
LOC: WPOUT 02:53 → WP 02:54
PROVIDERS: Visit Provider Obstetrics & Gynecology
DX: O98.519 Other viral diseases complicating pregnancy, unspecified trimester (principal); A08.4 Viral intestinal infection, unspecified; Z3A.00 Weeks of gestation of pregnancy not specified
CPT/HCPCS: 59025; 59050; 81001; 82570; 84156; 99218; G0378

== ENCOUNTER → 2019-02-26 | Outpatient (CLI) | payer MEDICAID, SELFPAY ==
[2019-01-03 16:13] VITALS: BMI 26.2
[2019-02-12 03:02] VITALS: BMI 24.3
--- NOTE | 2019-02-26 14:09 | US_ITS ---
STUDY: SECOND AND THIRD TRIMESTER OBSTETRICAL ULTRASOUND - LIMITED REASON FOR EXAM: Female, 28 years old. Amniotic fluid index only. LMP: July 12, 2018. PRIOR ULTRASOUND: Comparison is made with prior examination dated December 19, 2018. TECHNIQUE: Transabdominal TECHNICAL QUALITY: Adequate. FINDINGS: There is a single intrauterine fetus. The fetus is in a cephalic presentation. There is demonstrated cardiac activity with a heart rate of 146 bpm. There is a normal amniotic fluid volume. The largest amniotic fluid pocket measures 3.1 cm. The amniotic fluid index (CARIN) is 8.9 cm. The placenta is posterior in location and is not low lying. There are Grade 1 placental changes. The cervix measures 3.0 cm in length. Age by LMP: 32 weeks, 5 days. AMARI by LMP: April 18, 2019. age by prior US: 31 weeks, 4 days. AMARI by prior US: April 26, 2019. US/OB Limited (No Biometrics) IMPRESSION: Normal amniotic fluid. Electronically Signed: Toby Miller, at 10:32 EDT , Service support ,
== END | disposition home or self-care (01) ==
PROVIDERS: Referring Provider Obstetrics & Gynecology; Visit Provider Obstetrics & Gynecology
DX: Z87.59 Personal history of other complications of pregnancy, childbirth and the puerperium (principal)
CPT/HCPCS: 76815

== ENCOUNTER → 2019-03-06 | Outpatient (CLI) | payer MEDICAID, SELFPAY ==
[2019-01-03 16:13] VITALS: BMI 26.2
[2019-02-26 15:23] VITALS: BMI 24.3
--- NOTE | 2019-03-06 14:05 | US_ITS ---
STUDY: SECOND AND THIRD TRIMESTER OBSTETRICAL ULTRASOUND - LIMITED REASON FOR EXAM: Female, 29 years old. Evaluate CARIN PRIOR ULTRASOUND: 02/26/2019. TECHNIQUE: Transabdominal ultrasound evaluation was performed. FINDINGS: There is a single intrauterine fetus. The fetus is in a cephalic presentation. There is demonstrated cardiac activity with a heart rate of 150 bpm. There is a normal amniotic fluid volume. The largest amniotic fluid pocket measures 4.2 cm. The amniotic fluid index (CARIN) is 12.38 cm. The placenta is posterior. There are Grade 1 placental changes. The cervix measures 3.1 cm in length and is closed. US/OB Limited (No Biometrics) IMPRESSION: Amniotic fluid index equals 12.38. Electronically Signed: Michael Razo, at 15:30 EDT Tel , Service support ,
== END | disposition home or self-care (01) ==
LOC: OPUS 14:04
PROVIDERS: Referring Provider Obstetrics & Gynecology; Visit Provider Obstetrics & Gynecology
DX: O09.90 Supervision of high risk pregnancy, unspecified, unspecified trimester (principal); Z98.891 History of uterine scar from previous surgery; Z87.59 Personal history of other complications of pregnancy, childbirth and the puerperium; Z3A.00 Weeks of gestation of pregnancy not specified
CPT/HCPCS: 76815

== ENCOUNTER 2019-03-12 15:58 | Outpatient (CLI) | payer MEDICAID, SELFPAY ==
[2019-03-06 15:27] VITALS: BMI 24.3
[2019-03-12 16:07] VITALS: BMI 25.2
[2019-03-12 16:54] LABS: ROM Internal Control Test YES-OK TO RESULT pt. (Internal QC); ROM Patient Test Negative (Negative)
[2019-03-12] MEDS: Betamethasone/Betamethasone 30 MG/5 ML Vial 12 MG IM (17:48)
[2019-03-12 18:12] LABS: Protein, Urine (Random) 7.5 mg/dL (<11.9); Protein:Creat Ratio 279 mg/g CRE (0-200)
--- NOTE | 2019-03-14 12:41 | OB.TRI.NOTE ---
- Problem List (1) Threatened labor Status: Acute (2) Status: Acute Qualifiers: Comment: 2nd TM LOVE (3) Anemia affecting Status: Acute Qualifiers: Comment: check cbc monthly (4) Supervision of high risk , antepartum Status: Acute Comment: PRR (gcc/urine culture) AMARI 04/18/19 nuvia Rendon Lacey Malik bañuelos (5) History of delivery Status: Acute Comment: x1, previous prior, , successful (6) History of severe pre-eclampsia Status: Acute Comment: baby asa, baseline labs done (7) Chronic hypertension during Status: Acute Comment: baseline labs wnl, ekg; home BPs, growth us starting at 28 weeks, weekly nsts/CARIN after 32 and deliver at 38 01/01 labetalol 100mg bid (8) heart deceleration Status: Acute History of Present Illness Date of Service: 03/13/19 Was patient seen by the physician?: No Reason For Visit: R/O LABOR Date of Service: 03/13/19 Final AMARI: 04/18/19 Gestational age: 35 Weeks and 0 Days History of Present Illness: 29 yo at 34 weeks 6 days presents with threatened labor. She had been 3 cm the day prior and was given a dose of Celestone at 5 PM and then sent home for no cervical change and reassuring testing. Overnight and into the morning she developed regular painful contractions and was found to be now 4 cm but dennis irregularly and stable with no cervical change after several hours. She denies any vaginal bleeding or loss of fluid Allergies No Known Allergies Allergy (Verified 03/13/19 04:33) - Pertinent Past Medical History Medical History: Past Medical History (Last Reviewed 03/06/19 @ 15:27 by Maggy Reilly) Abnormal Pap smear of cervix 2006 Surgical History: Past Surgical History (Last Reviewed 03/06/19 @ 15:27 by Maggy Reilly) S/P x1 Laboratory Studies: Laboratory Tests 03/12/19 03/12/19 Range/Units 17:48 16:18 U Random Total Protein 7.5 (<11.9) mg/dL Urine Creatinine 26.90 (NO RANGE EST.) mg/dL Protein/Creatinin Ratio 279 H (0-200) mg/g CRE Vag Amniotic Fld Detect Negative (Negative) Review of Systems Constitutional: Denies: Fever, Malaise Eyes: Denies: Blurred vision, Vision Change HEENT: Denies: Head Aches, Visual Changes Cardiovascular: Denies: Chest Pain, Palpitations Respiratory: Denies: Cough, Shortness of Breath, Wheezing Gastrointestinal: Denies: Abdominal Pain, Diarrhea, Nausea, Vomiting Genitourinary: Denies: Dysuria, Hematuria Musculoskeletal: Denies: Joint Pain, Muscle pain Skin: Denies: Lesions, Rash Neurological: Denies: Blurred vision, Focal weakness, Headaches Psychiatric: Denies: Anxiety, Depression Endocrine: Denies: Heat/ Cold Intolerance Hematologic/ Lymphatic: Denies: Easy Bruising, Easy Bleeding Physical Exam General: Alert, Oriented x3 HEENT: Atraumatic, Normocephalic Cardiovascular: Regular rate Lungs: Clear to auscultation, Normal air movement Abdomen: Soft, Non Tender, Gravid Neurological: Deep Tendon Reflexes 2+/4 and Symmetrical. 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 No augmentation at this time just extended monitoring. In the evening there were 2 prolonged decelerations lasting 2 minutes with good recovery and then the tracing afterwards had moderate variability normal baseline and was reactive and then therefore became a category 1 tracing. Plan extended monitoring and BPP and CARIN Multi Select Codes - Visit Charges Observation E&M Codin Initial observation care L3 - Urinary/Genital Urinary/Genital CPT Codes: Other Procedure See Report - [id number]
--- NOTE | 2019-03-14 12:42 | OB.TRI.PN_ITS ---
Progress Notes Date of Service: 03/14/19 Progress Note: patient seen, still 4 cm no cervicla change fht 120 moderate variability reactive no decelerations category I tracing [place]: irregular bpp 8/10 a/p threatened PTL and prolonged deceleration- plan dc home kick counts labor precautions, start 24 hour urine and fu tomorrow for nst in the office Laboratory Studies: Laboratory Tests 03/12/19 03/12/19 Range/Units 17:48 16:18 U Random Total Protein 7.5 (<11.9) mg/dL Urine Creatinine 26.90 (NO RANGE EST.) mg/dL Protein/Creatinin Ratio 279 H (0-200) mg/g CRE Vag Amniotic Fld Detect Negative (Negative)
== END 2019-03-12 17:55 | disposition home or self-care (01) ==
LOC: WPOUT 15:59 → OBT 16:00
PROVIDERS: Referring Provider Obstetrics & Gynecology; Visit Provider Obstetrics & Gynecology
DX: O60.03 Preterm labor without delivery, third trimester (principal); O76 Abnormality in fetal heart rate and rhythm complicating labor and delivery; Z3A.34 34 weeks gestation of pregnancy; Z87.59 Personal history of other complications of pregnancy, childbirth and the puerperium
CPT/HCPCS: 59025; 59050; 82570; 84112; 84156; 99218; G0378; J0702

== ENCOUNTER 2019-03-13 17:33 | Observation (INO) | payer MEDICAID, SELFPAY ==
[2019-03-12 16:07] VITALS: BMI 25.2
[2019-03-13] MEDS: Lactated Ringers 1,000 ML 999 ML IV (04:45)
[2019-03-13] MEDS: Labetalol 100 MG Tablet PO ×3 (04:55→21:36)
[2019-03-13 05:13] LABS: Absolute Lymphocyte Count 0.98 X10^3/uL (0.83-4.51); Absolute Neutrophil Count 11.5 X10^3/uL (2.0-7.7); Basophil# 0.01 X10^3/uL; Basophil% 0.1 % (0-1); Hematocrit 33.5 % (37-47); Hemoglobin 10.5 g/dL (12.0-15.0); Lymphocyte # 0.98 X10^3/ul (4.0); Lymphocyte % 7.7 % (19-41); Mean Corp Hgb Conc 31.3 g/dL (32-36); Mean Corpuscular Hgb 24.1 pg (27.0-32.0); Mean Corpuscular Volume 76.8 fL (81-99); Mean Platelet Vol. 9.9 fl (6.2-12.0); Monocyte# 0.18 X10^3/uL; Monocyte% 1.4 % (0-10); NRBC Flagged by Analyzer 0 % (0-5); Neutrophil # 11.52 X10^3/uL (2.7-7.7); Platelet Count 246 K/mm3 (150-450); RBC Distribution Width CV 13.3 % (11.6-14.6); RBC Distribution Width SD 37.4 fl (35.1-43.9); Red Blood Count 4.36 M/mm3 (4.2-5.4); White Blood Count 12.8 K/mm3 (4.4-11.0)
[2019-03-13] MEDS: Nalbuphine 10 MG/ML Ampul IV ×2 (05:57→13:26)
[2019-03-13] MEDS: Lactated Ringers 1,000 ML 150 ML IV ×3 (06:00→19:16)
[2019-03-13 14:53] LABS: Bacteria 0 SEEN /hpf (None Seen); Mucous, Urine 0 SEEN /hpf (<or=2+); Red Blood Cells-Urine 0 SEEN /hpf (0-5); White Blood Cells 0 SEEN /hpf (0-5)
[2019-03-13 15:00] LABS: Color, Urine Straw (Yellow); Glucose, Dipstick Normal (Normal); Ketone-Dipstick Negative (Negative); Leukocyte Esterase-Dipstick Negative /ul (Negative); Nitrite-Dipstick Negative (Negative); Occult Blood-Urine Negative /ul (Negative); Protein-Dipstick Negative (Negative); Specific Gravity, Urine 1.005 (1.002-1.030); Urine Bilirubin Dipstick Negative (Negative); Urine Clarity Clear (Clear); Urine Urobilinogen Normal (Normal)
[2019-03-13 15:05] LABS: Squamous Epithelial Cells - UA 0-5 SEEN /hpf (5-10)
[2019-03-13] MEDS: Acetaminophen 500 MG Tablet 1000 MG PO (17:42)
[2019-03-13] MEDS: Betamethasone/Betamethasone 30 MG/5 ML Vial 12 MG IM (17:58)
[2019-03-13 18:19] LABS: Protein, Urine (Random) 14.1 mg/dL (<11.9); Protein:Creat Ratio 298 mg/g CRE (0-200)
[2019-03-13 18:21] LABS: AST(SGOT) 14 U/L (15-37); Alanine Aminotransfer ALT/SGPT 12 U/L (13-56); Creatinine, Serum 0.66 mg/dL (0.55-1.02); EST Glomerular Filtration Rate 113 mL/min (>60); Est Glom Filt Rate - Afr Amer 136 mL/min (>60); Estimated Creatinine Clearance 107.63 ml/min; Uric Acid 3.3 mg/dL (2.6-6.0)
[2019-03-13 18:22] LABS: Hematocrit 30.7 % (37-47); Hemoglobin 9.6 g/dL (12.0-15.0); Mean Corp Hgb Conc 31.3 g/dL (32-36); Mean Corpuscular Hgb 24.1 pg (27.0-32.0); Mean Corpuscular Volume 76.9 fL (81-99); Mean Platelet Vol. 9.9 fl (6.2-12.0); Platelet Count 218 K/mm3 (150-450); RBC Distribution Width CV 13.5 % (11.6-14.6); RBC Distribution Width SD 37.7 fl (35.1-43.9); Red Blood Count 3.99 M/mm3 (4.2-5.4); White Blood Count 16.8 K/mm3 (4.4-11.0)
[2019-03-13 19:00] LABS: Partial Thromboplast Time 23.4 Seconds (24.1-36.2); Prothrombin Time (Protime)PT. 12.9 SECONDS (11.7-14.9)
[2019-03-13] MEDS: DiphenhydrAMINE 25 MG Capsule 50 MG PO (21:37)
[2019-03-14] MEDS: Lactated Ringers 1,000 ML 150 ML IV (02:28)
--- NOTE | 2019-03-14 08:00 | US_ITS ---
STUDY: OBSTETRICAL ULTRASOUND - BIOPHYSICAL PROFILE REASON FOR EXAM: Female, 29 years old. Early labor LMP: 07/12/2018 PRIOR ULTRASOUND: 03/06/2019 TECHNIQUE: Transabdominal TECHNICAL QUALITY: Adequate. FINDINGS: There is a single intrauterine fetus. The fetus is in a cephalic presentation. There is demonstrated cardiac activity with a heart rate of 129 bpm. There is a normal amniotic fluid volume. The largest amniotic fluid pocket measures 4.36 x 8.8 cm. The amniotic fluid index (CARIN) is 14.72 cm. The placenta is posterior in location and is not low lying. There are Grade 1 placental changes. Age by LMP: 35 weeks, 0 days. AMARI by LMP: 04/10/2019. BIOPHYSICAL PROFILE: Breathing Movements (FBM): 0 Gross Body Movements (GBM): 2 Tone (FT): 2 Amniotic Fluid Volume (AFV): 2 TOTAL SCORE: US/Biophysical Prof W/O Non Stres IMPRESSION: biophysical profile of 01/27. Electronically Signed: Franklin Sierra MD at 8:51 EDT , Service support ,
[2019-03-15 13:16] LABS: 24 Hour Urine Protein 409.6 mg/24HR (<150 MG/24HR); 24HR. UA Prot. Total Volume 3625 mL; Urine Protein (24 Hour) 11.3 mg/dL (<11.9)
--- NOTE | 2019-03-15 19:01 | PCM.HPOB.BLA ---
- Problem List (1) labor in third trimester Status: Acute (2) Anemia affecting Status: Acute Qualifiers: Comment: check cbc monthly (3) Chronic hypertension during Status: Acute Comment: baseline labs wnl, ekg; home BPs, growth us starting at 28 weeks, weekly nsts/CARIN after 32 and deliver at 38 5/13 labetalol 100mg bid (4) heart deceleration Status: Acute (5) History of delivery Status: Acute Comment: x1, previous prior, , successful (6) History of severe pre-eclampsia Status: Acute Comment: baby asa, baseline labs done (7) Status: Acute Qualifiers: Comment: 2nd TM LOVE (8) Supervision of high risk , antepartum Status: Acute Comment: PRR (gcc/urine culture) AMARI 04/18/19 nuvia Rendon Lacey Malik bañuelos (9) Threatened labor Status: Acute History and Physical Date of Admission: 03/13/19 LIVE [facility] OB Triage Physician Note Patient Name: LULU ANGULO Date of : 88 Patient Status: Clinical Attending Provider: Marlene Dixon Date: 03/14/19 12:41 Initialization Date: 03/14/19 12:41 - Problem List (1) Threatened labor Status: Acute (2) Status: Acute Qualifiers: Comment: 2nd TM LOVE (3) Anemia affecting Status: Acute Qualifiers: Comment: check cbc monthly (4) Supervision of high risk , antepartum Status: Acute Comment: PRR (gcc/urine culture) AMARI 04/18/19 nuvia Rendon Lacey Malik bañuelos (5) History of delivery Status: Acute Comment: x1, previous prior, , successful (6) History of severe pre-eclampsia Status: Acute Comment: baby asa, baseline labs done (7) Chronic hypertension during Status: Acute Comment: baseline labs wnl, ekg; home BPs, growth us starting at 28 weeks, weekly nsts/CARIN after 32 and deliver at 38 5/13 labetalol 100mg bid (8) heart deceleration Status: Acute History of Present Illness Date of Service: 03/13/19 Was patient seen by the physician?: No Reason For Visit: R/O LABOR Date of Service: 03/13/19 Final AMARI: 04/18/19 Gestational age: 35 Weeks and 0 Days History of Present Illness: 29 yo at 34 weeks 6 days presents with threatened labor. She had been 3 cm the day prior and was given a dose of Celestone at 5 PM and then sent home for no cervical change and reassuring testing. Overnight and into the morning she developed regular painful contractions and was found to be now 4 cm but dennis irregularly and stable with no cervical change after several hours. She denies any vaginal bleeding or loss of fluid Allergies No Known Allergies Allergy (Verified 03/13/19 04:33) - Pertinent Past Medical History Medical History: Past Medical History (Last Reviewed 03/06/19 @ 15:27 by Maggy Reilly) Abnormal Pap smear of cervix 2006 Surgical History: Past Surgical History (Last Reviewed 03/06/19 @ 15:27 by Maggy Reilly) S/P x1 Laboratory Studies: Laboratory Tests 03/12/19 03/12/19 Range/Units 17:48 16:18 U Random Total Protein 7.5 (<11.9) mg/dL Urine Creatinine 26.90 (NO RANGE EST.) mg/dL Protein/Creatinin Ratio 279 H (0-200) mg/g CRE Vag Amniotic Fld Detect Negative (Negative) Review of Systems Constitutional: Denies: Fever, Malaise Eyes: Denies: Blurred vision, Vision Change HEENT: Denies: Head Aches, Visual Changes Cardiovascular: Denies: Chest Pain, Palpitations Respiratory: Denies: Cough, Shortness of Breath, Wheezing Gastrointestinal: Denies: Abdominal Pain, Diarrhea, Nausea, Vomiting Genitourinary: Denies: Dysuria, Hematuria Musculoskeletal: Denies: Joint Pain, Muscle pain Skin: Denies: Lesions, Rash Neurological: Denies: Blurred vision, Focal weakness, Headaches Psychiatric: Denies: Anxiety, Depression Endocrine: Denies: Heat/ Cold Intolerance Hematologic/ Lymphatic: Denies: Easy Bruising, Easy Bleeding Physical Exam General: Alert, Oriented x3 HEENT: Atraumatic, Normocephalic Cardiovascular: Regular rate Lungs: Clear to auscultation, Normal air movement Abdomen: Soft, Non Tender, Gravid Neurological: Deep Tendon Reflexes 2+/4 and Symmetrical. 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 No augmentation at this time just extended monitoring. In the evening there were 2 prolonged decelerations lasting 2 minutes with good recovery and then the tracing afterwards had moderate variability normal baseline and was reactive and then therefore became a category 1 tracing. Plan extended monitoring and BPP and CARIN Multi Select Codes - Visit Charges Observation E&M Codin Initial observation care L3 - Urinary/Genital Urinary/Genital CPT Codes: Other Procedure See Report - [id number]
== END 2019-03-14 09:30 | disposition home or self-care (01) ==
LOC: WPOUT 03-14 08:59
PROVIDERS: Admitting Provider Obstetrics & Gynecology; Visit Provider Obstetrics & Gynecology
DX: O60.03 Preterm labor without delivery, third trimester (principal); O76 Abnormality in fetal heart rate and rhythm complicating labor and delivery; O10.913 Unspecified pre-existing hypertension complicating pregnancy, third trimester; Z87.59 Personal history of other complications of pregnancy, childbirth and the puerperium; Z3A.34 34 weeks gestation of pregnancy; Z79.899 Other long term (current) drug therapy
CPT/HCPCS: 96361 ×2; 96372; 96374; 96375; 36415; 59025; 59050; 76819; 81001; 82565; 82570; 84156; 84450; 84460; 84550; 85025; 85027; 85610; 85730; 86850; 86900; 87086; 87088; 99218; J7120; G0378; J0702

== ENCOUNTER 2019-03-15 14:10 | Inpatient (IN) | payer MEDICAID, SELFPAY ==
[2019-03-15 14:28] VITALS: BMI 25.2
[2019-03-15] MEDS: Lactated Ringers 1,000 ML 50 ML IV ×2 (14:35→20:39)
[2019-03-15 15:13] LABS: Absolute Lymphocyte Count 2.61 X10^3/uL (0.83-4.51); Absolute Neutrophil Count 10.3 X10^3/uL (2.0-7.7); Basophil# 0.04 X10^3/uL; Basophil% 0.3 % (0-1); Eosinophil# 0.02 X10^3/uL; Eosinophils% 0.1 % (0-5); Hematocrit 31.6 % (37-47); Lymphocyte # 2.61 X10^3/ul (4.0); Lymphocyte % 18.8 % (19-41); Mean Corp Hgb Conc 31.6 g/dL (32-36); Mean Corpuscular Hgb 23.9 pg (27.0-32.0); Mean Corpuscular Volume 75.4 fL (81-99); Mean Platelet Vol. 9.8 fl (6.2-12.0); Monocyte# 0.84 X10^3/uL; NRBC Flagged by Analyzer 0 % (0-5); Neutrophil # 10.32 X10^3/uL (2.7-7.7); Neutrophil % 74.2 % (47-70); Platelet Count 242 K/mm3 (150-450); RBC Distribution Width CV 13.8 % (11.6-14.6); RBC Distribution Width SD 37.1 fl (35.1-43.9); Red Blood Count 4.19 M/mm3 (4.2-5.4); White Blood Count 13.9 K/mm3 (4.4-11.0)
[2019-03-15 15:25] LABS: International Normalized Ratio 0.9; Partial Thromboplast Time 21.5 Seconds (24.1-36.2); Prothrombin Time (Protime)PT. 12.3 SECONDS (11.7-14.9)
[2019-03-15 15:37] LABS: ALB/GLOB Ratio 0.7 RATIO (0.9-2.4); AST(SGOT) 20 U/L (15-37); Alanine Aminotransfer ALT/SGPT 13 U/L (13-56); Albumin, Serum 2.8 g/dL (3.2-5.0); Alkaline Phosphatase 119 U/L (45-117); Anion Gap 8 (5-15); BUN 6 mg/dL (7-18); BUN/Creat Ratio 10.5 RATIO (10-20); Calcium,Total 8.8 mg/dL (8.5-10.1); Chloride 105 mmol/L (98-107); Creatinine, Serum 0.57 mg/dL (0.55-1.02); EST Glomerular Filtration Rate 133 mL/min (>60); Est Glom Filt Rate - Afr Amer 161 mL/min (>60); Globulin 4.3 g/dL (2.2-4.2); Glucose 75 mg/dL (74-106); Potassium 3.6 mmol/L (3.5-5.1); Protein, Total 7.1 g/dL (6.4-8.2); Sodium Level 135 mmol/L (136-145)
[2019-03-15] MEDS: Acetaminophen 325 MG Tablet PO (15:59)
--- NOTE | 2019-03-15 17:39 | PCM.HP.OB ---
- Problem List (1) labor in third trimester Status: Acute (2) Severe pre-eclampsia Status: Acute (3) heart deceleration Status: Acute (4) Status: Acute Qualifiers: Comment: 2nd TM LOVE (5) Anemia affecting Status: Acute Qualifiers: Comment: check cbc monthly (6) Supervision of high risk , antepartum Status: Acute Comment: PRR (gcc/urine culture) AMARI 04/18/19 boy Lilibeth nuvia Lerma Lacey Malik bañuelos (7) History of delivery Status: Acute Comment: x1, previous prior, , successful (8) History of severe pre-eclampsia Status: Acute Comment: baby asa, baseline labs done (9) Chronic hypertension during Status: Acute Comment: baseline labs wnl, ekg; home BPs, growth us starting at 28 weeks, weekly nsts/CARIN after 32 and deliver at 38 01/01 labetalol 100mg bid History Date of Admission: 03/03/18 Final AMARI: 04/18/19 Gestational age: 35 Weeks and 1 Days History of this : This is a 29 year-old, at 35 weeks gestational age presents in active labor a change from 5 to 6 cm. She also has severely elevated blood pressures and elevated protein in her urine. Normal labs. Patient has had intermittent headache and some wavy lines in her vision.. Medical History: Medical History (Last Reviewed 03/06/19 @ 15:27 by Maggy Reilly) Abnormal Pap smear of cervix R87.619 2006 Surgical History: Surgical History (Last Reviewed 03/06/19 @ 15:27 by Maggy Reilly) S/P Z98.891 x1 Allergies No Known Allergies Allergy (Verified 03/15/19 16:01) Home Medications: Home Medications Aspirin [Aspirin, Baby] 81 mg PO DAILY@0800 02/12/19 Labetalol [Trandate (Beta Gal[place])] 100 mg PO BID 02/12/19 Ondansetron HCl 4 mg PO Q4H 02/12/19 Smoking Status: Never smoker Alcohol: None Number of Fetus(es): 1 Heart Tracin moderate variability reactive no decelerations category I tracing [place]: regular History Past Pregnancies: Past Pregnancies Labs: Mom's Labs & Results 03/15/19 03/15/19 03/15/19 14:35 14:35 14:35 WBC 13.9 H RBC 4.19 L Hgb 10.0 L Hct 31.6 L MCV 75.4 L MCH 23.9 L MCHC 31.6 L RDW Std Deviation 37.1 RDW Coeff of Letty 13.8 Plt Count 242 MPV 9.8 Immature Gran % (Auto) 0.600 Neut % (Auto) 74.2 H Lymph % (Auto) 18.8 L [place] % (Auto) 6.0 Eos % (Auto) 0.1 Baso % (Auto) 0.3 Absolute Neuts (auto) 10.3 H Absolute Lymphs (auto) 2.61 Absolute Nucleated RBC 0.00 Nucleated RBC % 0 PT 12.3 INR 0.9 APTT 21.5 L Sodium 135 L Potassium 3.6 Chloride 105 Carbon Dioxide 22.0 Anion Gap 8 BUN 6 L Creatinine 0.57 Est GFR (MDRD) Af Amer 161 Est GFR (MDRD) Non-Af 133 BUN/Creatinine Ratio 10.5 Glucose 75 Calcium 8.8 Total Bilirubin 0.40 AST 20 ALT 13 Alkaline Phosphatase 119 H Total Protein 7.1 Albumin 2.8 L Globulin 4.3 H Albumin/Globulin Ratio 0.7 L Group B Strep DNA Specimen Comment Blood Type Antibody Screen 03/15/19 03/15/19 14:35 16:30 WBC RBC Hgb Hct MCV MCH MCHC RDW Std Deviation RDW Coeff of Letty Plt Count MPV Immature Gran % (Auto) Neut % (Auto) Lymph % (Auto) [place] % (Auto) Eos % (Auto) Baso % (Auto) Absolute Neuts (auto) Absolute Lymphs (auto) Absolute Nucleated RBC Nucleated RBC % PT INR APTT Sodium Potassium Chloride Carbon Dioxide Anion Gap BUN Creatinine Est GFR (MDRD) Af Amer Est GFR (MDRD) Non-Af BUN/Creatinine Ratio Glucose Calcium Total Bilirubin AST ALT Alkaline Phosphatase Total Protein Albumin Globulin Albumin/Globulin Ratio Group B Strep DNA Pending Specimen Comment Pending Blood Type Pending Antibody Screen Pending Course Did the patient receive Yes care? Labs Blood Type: O RH: POSITIVE HIV/AIDS Non-Reactive Group B Strep: Negative Current Obstetrical History Gestational Diabetes No Incompetent Cervix No Infertility No IUGR Yes Macrosomia No Hypertension/Pre-eclampsia Yes Placenta Previa/Abruption No PTL/PROM Yes Uterine anomaly No Oligohydramnios No Polyhydramnios No Multiple gestation No Past Medical History Asthma No Diabetes No Hypertension Yes: chronic Heart disease No Mitral valve prolapse No Neurologic/Seizure disorder/ No Migraines Kidney disease No Liver disease No Varicosities No Clotting disorders/Hx of DVT No Thyroid Dysfunction No Other medical diseases No Psychiatric disorders No Major trauma No Abnormal PAP smear No Sleep apnea No Mammogram in the last 2 years No Social History Marital Status: Alleged father Malik Buchanan Hx Smoking No Smoking Status Never smoker Expected Infant Delivery Method: Review of Systems Constitutional: Denies: Fever, Malaise Eyes: Denies: Blurred vision, Vision Change HEENT: Denies: Head Aches, Visual Changes Cardiovascular: Denies: Chest Pain, Palpitations Respiratory: Denies: Cough, Shortness of Breath, Wheezing Gastrointestinal: Denies: Abdominal Pain, Diarrhea, Nausea, Vomiting Genitourinary: Denies: Dysuria, Hematuria Musculoskeletal: Denies: Joint Pain, Muscle pain Skin: Denies: Lesions, Rash Neurological: Denies: Blurred vision, Focal weakness, Headaches Psychiatric: Denies: Anxiety, Depression Endocrine: Denies: Heat/ Cold Intolerance Hematologic/ Lymphatic: Denies: Easy Bruising, Easy Bleeding Physical Exam General: Alert, Cooperative, No apparent distress HEENT: Atraumatic, Normocephalic. Negative for: Thyromegaly, Lymphadenopathy Cardiovascular: Regular rate Lungs: Normal air movement Abdomen: Soft, Non Tender, Gravid Neurological: Deep Tendon Reflexes 2+/4 and Symmetrical, Neuro grossly intact. 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 Negative for: Vulvar lesions Estimated gestational size: Appropriate for gestational size Presentation: Cephalic Assessment/Plan All Active Problems (Last Reviewed 03/06/19 @ 15:27 by Maggy Reilly) Threatened labor (Acute) heart deceleration (Acute) labor in third trimester (Acute) Severe pre-eclampsia (Acute) (Acute) Anemia affecting (Acute) Supervision of high risk , antepartum (Acute) History of delivery (Acute) History of severe pre-eclampsia (Acute) Chronic hypertension during (Acute) Preeclampsia complicating hypertension (Resolved) This is a 29 year-old, at 35 weeks gestational age presents with labor and preeclampsia with severe features 1. Start penicillin for GBS unknown and DNA sent. 2. Start magnesium and labetalol hypertensive protocol to treat severe preeclampsia. 3. Prematurity?status post Celestone x2 4. Plans history of previous successful
[2019-03-15] MEDS: Ondansetron 4 MG/2 ML Vial IV (17:58)
[2019-03-15] MEDS: Magnesium Sulfate 20 GM/500 ML BAG IV (18:01)
[2019-03-15 18:14] LABS: Group B Strep DNA By PCR Negative (Negative); Internal Control PASS; Probe Check PASS; Specimen Processing Control PASS
[2019-03-15] MEDS: Oxytocin 30 units/NS 500 ml 30 UNITS/500 ML IV.SOLN IV (19:04)
[2019-03-15] MEDS: Labetalol 200 MG Tablet PO (22:01)
[2019-03-15] MEDS: Oxytocin 30 units/NS 500 ml 30 UNITS/500 ML IV.SOLN 334 UNITS IV (23:11)
[2019-03-15] MEDS: Carboprost Tromethamine 250 MCG/ML Ampul IM (23:16)
--- NOTE | 2019-03-15 23:30 | PCM.OPRPT ---
Problem List (1) labor in third trimester Status: Acute (2) Severe pre-eclampsia Status: Acute (3) heart deceleration Status: Acute (4) Status: Acute Qualifiers: Comment: 2nd TM LOVE (5) Anemia affecting Status: Acute Qualifiers: Comment: check cbc monthly (6) Supervision of high risk , antepartum Status: Acute Comment: PRR (gcc/urine culture) AMARI 04/18/19 nuvia Rendon Lacey Malik LOVE sarmad (7) History of delivery Status: Acute Comment: x1, previous prior, , successful (8) History of severe pre-eclampsia Status: Acute Comment: baby asa, baseline labs done (9) Chronic hypertension during Status: Acute Comment: baseline labs wnl, ekg; home BPs, growth us starting at 28 weeks, weekly nsts/CARIN after 32 and deliver at 38 5/13 labetalol 100mg bid Vaginal Delivery Maternal Presentation: Active Labor, - - ptl and chtn with superimposed severe preeclampsia 29 yo presented at 6 cm dilation and then developed proteinuria and severely elevated bps. Method of Induction: Pitocin Medical Reason for Induction: Preeclampsia, eclampsia, - - ptl Amniotic Membrane Rupture Type: Artificial Amniotic Fluid Description: Clear Final AMARI: 04/18/19 Gestational age: 35 Weeks and 1 Days Date of Procedure: 03/15/19 Pre-Operative Diagnosis: ptl severe preeclampsia Post-Operative Diagnosis: same plus uterine atony Surgery/ Procedure Performed: Spontaneous Vaginal Delivery Type of Anesthesia: None Description of Procedure: Patient began pushing and delivered the head in the JOSSELIN presentation. The head was delivered atraumatically and a loose nuchal cord ?1 was identified and easily reduced over the infant's head. The anterior and posterior shoulders delivered without complication followed by the rest of the infant and the was placed on the maternal abdomen. Delayed cord clamping was employed for approximately 60 seconds. Cord was clamped and cut and gentle traction was applied to the cord and the placenta delivered spontaneously immediately following it was noted to be intact with three-vessel cord. The perineum and vagina were inspected and noted to have no laceration. EBL was 500 cc. there was some mild uterine atony treated with hemabate and IV tranexamic acid. stat Hg sent due to hypotension and patient appearing pale and dizzy. Patient and infant tolerated delivery well. Presentation: JOSSELIN Placental Delivery Description: Spontaneous Placenta Disposition: [facility] Cord Vessel Description: 3 Vessels Cord Entanglement: Around neck x 1, loose Estimated Blood Loss: 500 A gender: Male (1 minute): 8 (5 minute): 9 Episiotomy Description: None Laceration: None Medications given after delivery: IV Pitocin, IM Hemabate, - - tranexamic acid Complications: None
[2019-03-15] MEDS: Oxytocin 30 units/NS 500 ml 30 UNITS/500 ML IV.SOLN 167 UNITS IV (23:44)
[2019-03-15] MEDS: 0.9% Saline Lock 10 ML Syringe IV (23:56)
--- NOTE | 2019-03-16 00:02 | NURSING ---
233 magnesium sulfate turned off at this time. 300ml LR bolus given per order
[2019-03-16] MEDS: 0.9% Saline Lock 10 ML Syringe IV ×2 (00:12→04:40)
[2019-03-16] MEDS: Acetaminophen 500 MG Tablet 1000 MG PO (00:54)
[2019-03-16 01:24] LABS: Hemoglobin 8.9 g/dL (12.0-15.0)
--- NOTE | 2019-03-16 02:24 | NURSING ---
pt was up to restroom, missed hat
[2019-03-16 04:30] VITALS: BP 94/52; PULSE 67; RESP 16; TEMP 36.7; O2SAT 99
[2019-03-16] MEDS: Lactated Ringers 500 ML 999 ML IV (04:40)
[2019-03-16 08:00] VITALS: BP 120/79; PULSE 80; RESP 18; TEMP 36.3
--- NOTE | 2019-03-16 08:02 | PN.OBGYN_ITS ---
Patient Problems: Active and Suspected Problems (Last Reviewed 03/06/19 @ 15:27 by Maggy Reilly) labor in third trimester (Acute) Severe pre-eclampsia (Acute) Subjective: doing well no complaints pain controlled no CP SOB N V. some dizziness with standing, tolerating po lochia moderate, -baby special care for hypoglycemia, patient pumping. - Physical Exam General: Alert, Oriented x3 Abdomen: Soft, Non Tender, - - FF below U Vital Signs Temp Pulse Resp BP Pulse Ox 98.1 F 67 16 94/52 L 99 03/16/19 04:30 03/16/19 04:30 03/16/19 04:30 03/16/19 04:30 03/16/19 04:30 Oxygen Delivery Method Room Air Weight: 147 lb Body Mass Index (BMI) 25.2 Intake and Output for Last 24 Hours 03/14/19 03/15/19 03/16/19 23:59 23:59 23:59 Intake Total 955 / 955 408 / 408 Output Total 200 / 200 600 / 600 Balance 755 / 755 -192 / -192 Laboratory Tests Past 24 Hrs 03/15/19 03/15/19 03/15/19 14:35 14:35 14:35 WBC 13.9 H RBC 4.19 L Hgb 10.0 L Hct 31.6 L MCV 75.4 L MCH 23.9 L MCHC 31.6 L RDW Std Deviation 37.1 RDW Coeff of Letty 13.8 Plt Count 242 MPV 9.8 Immature Gran % (Auto) 0.600 Neut % (Auto) 74.2 H Lymph % (Auto) 18.8 L [place] % (Auto) 6.0 Eos % (Auto) 0.1 Baso % (Auto) 0.3 Absolute Neuts (auto) 10.3 H Absolute Lymphs (auto) 2.61 Absolute Nucleated RBC 0.00 Nucleated RBC % 0 PT 12.3 INR 0.9 APTT 21.5 L Sodium 135 L Potassium 3.6 Chloride 105 Carbon Dioxide 22.0 Anion Gap 8 BUN 6 L Creatinine 0.57 Est GFR (MDRD) Af Amer 161 Est GFR (MDRD) Non-Af 133 BUN/Creatinine Ratio 10.5 Glucose 75 Calcium 8.8 Total Bilirubin 0.40 AST 20 ALT 13 Alkaline Phosphatase 119 H Total Protein 7.1 Albumin 2.8 L Globulin 4.3 H Albumin/Globulin Ratio 0.7 L Group B Strep DNA Specimen Comment Blood Type Antibody Screen 03/15/19 03/15/19 03/15/19 14:35 16:30 23:46 WBC RBC Hgb 8.9 L Hct MCV MCH MCHC RDW Std Deviation RDW Coeff of Letty Plt Count MPV Immature Gran % (Auto) Neut % (Auto) Lymph % (Auto) [place] % (Auto) Eos % (Auto) Baso % (Auto) Absolute Neuts (auto) Absolute Lymphs (auto) Absolute Nucleated RBC Nucleated RBC % PT INR APTT Sodium Potassium Chloride Carbon Dioxide Anion Gap BUN Creatinine Est GFR (MDRD) Af Amer Est GFR (MDRD) Non-Af BUN/Creatinine Ratio Glucose Calcium Total Bilirubin AST ALT Alkaline Phosphatase Total Protein Albumin Globulin Albumin/Globulin Ratio Group B Strep DNA Negative Specimen Comment Not Reportable Blood Type O POSITIVE Antibody Screen NEGATIVE Medical Necessity - Tobacco Use Smoking Status: Never smoker Assessment/Plan All Active Problems (Last Reviewed 03/06/19 @ 15:27 by Maggy Reilly) Threatened labor (Acute) heart deceleration (Acute) labor in third trimester (Acute) Severe pre-eclampsia (Acute) (Acute) Anemia affecting (Acute) Supervision of high risk , antepartum (Acute) History of delivery (Acute) History of severe pre-eclampsia (Acute) Chronic hypertension during (Acute) Preeclampsia complicating hypertension (Resolved) s/p PPD # 1 1. routine post delivery care 2. breast feeding- support given 3. rh positive 4. rubella immune 5. BP meds dc'd due to hypotension 6. Fluid bolus was given and force fluids 7. Plans to eat and then attempt to go to nursery if stable.
--- NOTE | 2019-03-16 11:52 | CASEMGMT ---
Social Work Brief Assessment--Labor and Delivery Unit Date/Time of referral: 03/16/19, 1:38am Referred by: Dr. Cora Nunez Reason for Referral: late term infant w/hypoglycemia and hypothermia Date/Time of Intervention: 03/16/19, 11:45am Informant: MOB and FOB History: Referral received as listed above, baby in special care nursery. SW spoke w/RN, parents doing well, no concerns. SW stopped in room to check in and see how parents are doing. MOB reports all is going well, and she has no concerns in regard to baby(Donal) being in special care nursery. She states he is in the special care nursery due to low blood sugars, and so far is doing well. She states if all goes well he may even be able to go home tomorrow. MOB states they are about to go into the nursery to check on him after they complete paperwork. She reports they have three children at home and the children are excited to meet their new baby brother. Assessment: Both MOB and FOB with bright affect. MOB seems realistic and not exhibiting or voicing concern this time, in regard to baby being in the special care nursery. FOB also seems appropriate to the situation. Plan: Baby to go home w/family at discharge. No further concerns. SW available should anything change and family needs support. Otherwise, no further social work intervention indicated at this time. MARISA Andrea
[2019-03-16 12:00] VITALS: BP 107/64; PULSE 88; RESP 16; TEMP 36.8; O2SAT 98
[2019-03-16 15:17] VITALS: BP 122/76; PULSE 84; RESP 16; TEMP 37.1; O2SAT 98
--- NOTE | 2019-03-16 16:04 | NURSING ---
Late entry: 4 gram bolus was given d/t pt feeling N, hot, and weak. was at pt's bedside to evaluate pt and gave order to change bolus from (Magnesium sulfate) 6g to 4grams.
[2019-03-16] MEDS: Senna/Docusate Sodium 1 Tablet PO (19:35)
[2019-03-16 19:37] VITALS: BP 122/61; PULSE 80; RESP 16; TEMP 37.1; O2SAT 99
[2019-03-16] MEDS: Naproxen 250 MG Tablet 500 MG PO (22:17)
[2019-03-17] VITALS (9 sets, daily range): BP systolic 106–162; BP diastolic 60–106; PULSE 65–85; RESP 16–18; TEMP 36.5–36.9; O2SAT 98–100
--- NOTE | 2019-03-17 10:43 | PCM.PN.OB ---
Patient Problems: Active and Suspected Problems (Last Reviewed 03/06/19 @ 15:27 by Maggy Reilly) labor in third trimester (Acute) Severe pre-eclampsia (Acute) Subjective: doing well no complaints pain controlled no CP SOB N V ambulating well tolerating po lochia moderate, going well - Physical Exam General: Alert, Oriented x3 Vital Signs Temp Pulse Resp BP Pulse Ox 97.7 F L 71 16 127/92 H 98 03/17/19 10:00 03/17/19 10:00 03/17/19 10:00 03/17/19 10:00 03/17/19 01:59 Oxygen Delivery Method Room Air Weight: 147 lb Body Mass Index (BMI) 25.2 Intake and Output for Last 24 Hours 03/15/19 03/16/19 03/17/19 23:59 23:59 23:59 Intake Total 955 / 955 408 / 408 Output Total 200 / 200 600 / 600 Balance 755 / 755 -192 / -192 Medical Necessity - Tobacco Use Smoking Status: Never smoker Assessment/Plan All Active Problems (Last Reviewed 03/06/19 @ 15:27 by Maggy Reilly) Threatened labor (Acute) heart deceleration (Acute) labor in third trimester (Acute) Severe pre-eclampsia (Acute) (Acute) Anemia affecting (Acute) Supervision of high risk , antepartum (Acute) History of delivery (Acute) History of severe pre-eclampsia (Acute) Chronic hypertension during (Acute) Preeclampsia complicating hypertension (Resolved) s/p PPD # 2 1. routine post delivery care 2. breast feeding- support given 3. rh positive 4. rubella immune severe preeclampsia- still dizzy, check Hg, continue previous dose labetalol
--- NOTE | 2019-03-17 10:47 | DCINST_ITS ---
Discharge Diet: No Restrictions Discharge Activity: Return to Normal Activity, May not drive while taking narcotic pain medications., May Shower May resume sexual activity in: 4-6 weeks Call your doctor if your incision/area has: Continuous Slow Oozing, Sudden Increased Bleeding, Increased Pain/ Swelling, Increased Redness, Foul Smelling Discharge Additional Instructions: If you experience any of the following, contact your healthcare provider. * Bleeding that soaks a pad every hour for 2 hours * Fever 100.4 or higher * Unrelieved incision or abdominal pain * Swelling, redness, discharge or bleeding from your incision or episiotomy site * Your incision begins to separate * Problems urinating (including inability to urinate or burning while urinating). * Visual changes * Severe headache * Flu-like symptoms * Pain or redness in one of both of your breasts * Pain, warmth, tenderness or swelling in your legs, especially the calf area * Frequent nausea and vomiting * Symptoms of depression or anxiety If you experience any of the following, call 911 or go to the nearest Emergency Room. * Chest pain * Problems breathing * Seizure activity * Partial or complete paralysis of a body part, slurred speech, weakness or drooping of the face, or a sudden inability to walk or hold your balance Allergies/Adverse Reactions: Allergies No Known Allergies Allergy (Verified 03/15/19 16:01) Medications to take at Discharge Aspirin [Aspirin, Baby] 81 mg PO DAILY@0800 02/12/19 Ondansetron HCl 4 mg PO Q4H 02/12/19 Labetalol [Trandate (Beta Galen)] 100 mg PO BID #60 tab 03/17/19 The following prescriptions were given: Labetalol [Trandate (Beta Galen)] 100 mg PO BID #60 tab Transmission Status: Pending to [facility] #[id number] Please Follow Up With: Marlene Dixon MD - [phone] When: Call to make an appointment with your doctor in 6 weeks. If you had elevated Blood pressure or 4th degree laceration you will need to be seen in 2 weeks. Primary Care Physician: Care Physician,No Primary [Primary Care Provider] - Test Results: Test results from this visit will be discussed in further detail at your follow- up appointment, if applicable.
--- NOTE | 2019-03-17 10:47 | PCM.DCVAG ---
Discharge Diet: No Restrictions Discharge Activity: Return to Normal Activity, May not drive while taking narcotic pain medications., May Shower May resume sexual activity in: 4-6 weeks Call your doctor if your incision/area has: Continuous Slow Oozing, Sudden Increased Bleeding, Increased Pain/ Swelling, Increased Redness, Foul Smelling Discharge Additional Instructions: If you experience any of the following, contact your healthcare provider. Bleeding that soaks a pad every hour for 2 hours Fever 100.4 or higher Unrelieved incision or abdominal pain Swelling, redness, discharge or bleeding from your incision or episiotomy site Your incision begins to separate Problems urinating (including inability to urinate or burning while urinating). Visual changes Severe headache Flu-like symptoms Pain or redness in one of both of your breasts Pain, warmth, tenderness or swelling in your legs, especially the calf area Frequent nausea and vomiting Symptoms of depression or anxiety If you experience any of the following, call 911 or go to the nearest Emergency Room. Chest pain Problems breathing Seizure activity Partial or complete paralysis of a body part, slurred speech, weakness or drooping of the face, or a sudden inability to walk or hold your balance Allergies/Adverse Reactions: Allergies No Known Allergies Allergy (Verified 03/15/19 16:01) Medications to take at Discharge Aspirin [Aspirin, Baby] 81 mg PO DAILY@0800 02/12/19 Ondansetron HCl 4 mg PO Q4H 02/12/19 Labetalol [Trandate (Beta Galen)] 100 mg PO BID #60 tab 03/17/19 The following prescriptions were given: Labetalol [Trandate (Beta Galen)] 100 mg PO BID #60 tab Transmission Status: Pending to [facility] #[id number] Please Follow Up With: Marlene Dixon MD - [phone] When: Call to make an appointment with your doctor in 6 weeks. If you had elevated Blood pressure or 4th degree laceration you will need to be seen in 2 weeks. Primary Care Physician: Care Physician,No Primary [Primary Care Provider] - Test Results: Test results from this visit will be discussed in further detail at your follow-up appointment, if applicable.
[2019-03-17] MEDS: Labetalol 100 MG Tablet PO (14:39)
[2019-03-17] MEDS: Labetalol 200 MG Tablet PO (20:38)
[2019-03-17] MEDS: Naproxen 250 MG Tablet 500 MG PO (22:40)
[2019-03-17] MEDS: Senna/Docusate Sodium 1 Tablet PO (22:40)
--- NOTE | 2019-03-21 17:05 | NURSING ---
Baby in [facility]. Mother doing well. She has been watching her bp but good at this time
== END 2019-03-17 22:42 | disposition home or self-care (01) | DRG 560 ==
PROVIDERS: Admitting Provider Obstetrics & Gynecology; Referring Provider Obstetrics & Gynecology; Visit Provider Obstetrics & Gynecology
DX: O14.14 Severe pre-eclampsia complicating childbirth (principal); O60.14X0 Preterm labor third trimester with preterm delivery third trimester, not applicable or unspecified; Z3A.35 35 weeks gestation of pregnancy; Z37.0 Single live birth; O62.2 Other uterine inertia; O34.219 Maternal care for unspecified type scar from previous cesarean delivery; O69.81X0 Labor and delivery complicated by cord around neck, without compression, not applicable or unspecified; O76 Abnormality in fetal heart rate and rhythm complicating labor and delivery; Z87.59 Personal history of other complications of pregnancy, childbirth and the puerperium
CPT/HCPCS: 36415; 59025; 59050; 76819; 80053; 81001; 82565; 82570; 84112; 84156; 84450; 84460; 84550; 85018; 85025; 85027; 85610; 85730; 86850; 86900; 87081; 87086; 87088; 87653; 99218; J7120; A4216; G0378; J0702; J2405

== ENCOUNTER → 2019-03-20 | Outpatient (CLI) | payer MEDICAID, SELFPAY ==
[2019-03-15 14:28] VITALS: BMI 25.2
[2019-03-20 13:58] LABS: Absolute Lymphocyte Count 3.19 X10^3/uL (0.83-4.51); Absolute Neutrophil Count 8.2 X10^3/uL (2.0-7.7); Basophil# 0.06 X10^3/uL; Basophil% 0.5 % (0-1); Eosinophil# 0.21 X10^3/uL; Eosinophils% 1.7 % (0-5); Hematocrit 27.9 % (37-47); Hemoglobin 8.3 g/dL (12.0-15.0); Lymphocyte # 3.19 X10^3/ul (4.0); Lymphocyte % 25.3 % (19-41); Mean Corp Hgb Conc 29.7 g/dL (32-36); Mean Corpuscular Hgb 23.1 pg (27.0-32.0); Mean Corpuscular Volume 77.5 fL (81-99); Mean Platelet Vol. 9.6 fl (6.2-12.0); Monocyte# 0.87 X10^3/uL; Monocyte% 6.9 % (0-10); NRBC Flagged by Analyzer 0 % (0-5); Neutrophil # 8.18 X10^3/uL (2.7-7.7); Neutrophil % 64.8 % (47-70); Platelet Count 314 K/mm3 (150-450); RBC Distribution Width CV 14.4 % (11.6-14.6); RBC Distribution Width SD 39.9 fl (35.1-43.9); White Blood Count 12.6 K/mm3 (4.4-11.0)
[2019-03-20 14:28] LABS: ALB/GLOB Ratio 0.6 RATIO (0.9-2.4); AST(SGOT) 23 U/L (15-37); Alanine Aminotransfer ALT/SGPT 25 U/L (13-56); Albumin, Serum 2.7 g/dL (3.2-5.0); Alkaline Phosphatase 109 U/L (45-117); Anion Gap 9 (5-15); BUN 10 mg/dL (7-18); BUN/Creat Ratio 10.2 RATIO (10-20); Calcium,Total 9.1 mg/dL (8.5-10.1); Chloride 106 mmol/L (98-107); Creatinine, Serum 0.98 mg/dL (0.55-1.02); EST Glomerular Filtration Rate 71 mL/min (>60); Est Glom Filt Rate - Afr Amer 85 mL/min (>60); Globulin 4.2 g/dL (2.2-4.2); Glucose 78 mg/dL (74-106); Potassium 3.8 mmol/L (3.5-5.1); Protein, Total 6.9 g/dL (6.4-8.2); Sodium Level 144 mmol/L (136-145)
== END | disposition home or self-care (01) ==
LOC: LAB 12:52
PROVIDERS: Referring Provider Nurse Practitioner Women's Health; Visit Provider Nurse Practitioner Women's Health
DX: O10.919 Unspecified pre-existing hypertension complicating pregnancy, unspecified trimester (principal); Z3A.00 Weeks of gestation of pregnancy not specified
CPT/HCPCS: 36415; 80053; 85025

== ENCOUNTER → 2021-04-15 | Outpatient (CLI) | payer MEDICAID, SELFPAY | END | disposition home or self-care (01) | LOC: LABSPEC 12:27 | PROVIDERS: Referring Provider Nurse Practitioner Women's Health; Visit Provider Nurse Practitioner Women's Health | DX: N76.4 Abscess of vulva (principal) | CPT/HCPCS: 87070; 87077; 87186; 87205 ==

== ENCOUNTER → 2023-10-03 | Outpatient (CLI) | payer OTHER, MEDICAID, SELFPAY ==
--- NOTE | 2023-10-03 | EMB_PTH ---
PATHOLOGY RESULTS PATIENT: LULU ANGULO LOC: [facility] U#:[id number] AGE/SX: 33/F ROOM: RE10/03/[address]: Dr. Marlene Dixon MD : [id number] BED: DIS: 10/03/2023 SPEC #: [id number] RECD: 10/03/23 15:59 STATUS: ADAM CHRISTIANSEN #: [id number] NATHALY: 10/03/23 00:[address]: Marlene Dixon DEPT: SURGICAL PATHOLOGY RECD BY: Ana Cristina Schaefer ENTERED: 10/04/23 08:25 SP TYPE: ENDOM BX/C Tissues: Endometrium, NOS Procedures: Surgery Specimen Level IV HEADER OPERATION: Endometrial biopsy PRE-OP DIAGNOSIS: Abnormal uterine bleeding TISSUE SUBMITTED: Endometrial lining MICROSCOPIC DIAGNOSIS Endometrial biopsy: Proliferative endometrium. Fragments of benign endocervical mucosa. SJ:cathleen 10/05/2023 MICROSCOPIC DESCRIPTION Slides are reviewed. GROSS DESCRIPTION Received is one container labeled with the patient's name and not further designated. The specimen consists of multiple irregular fragments of light arredondo mucoid tissue that in aggregate measure 1.5 x 1.0 x 0.1 cm. The specimen is totally submitted in one cassette. / AM:cathleen 10/04/2023 TC:4 CPT: 05821
[2023-10-07 04:07] LABS: HPV APTIMA, High Risk Negative (Negative)
== END | disposition home or self-care (01) ==
LOC: LABSPEC 16:07
PROVIDERS: Referring Provider Obstetrics & Gynecology; Visit Provider Obstetrics & Gynecology
DX: N93.9 Abnormal uterine and vaginal bleeding, unspecified (principal); Z12.4 Encounter for screening for malignant neoplasm of cervix
CPT/HCPCS: 87624; 88175; 88305; G0145

== ENCOUNTER → 2023-10-07 | Outpatient (CLI) | payer OTHER, MEDICAID, SELFPAY ==
--- NOTE | 2023-10-07 16:06 | US_ITS ---
INDICATION: irregular vaginal bleeding EXAMINATION: Ultrasound US Pelvis Non OB Complete With Transvaginal Imaging TECHNIQUE: Transabdominal and transvaginal pelvic ultrasound was performed. Grayscale, spectral waveform, and color flow Doppler evaluation of the adnexa. COMPARISON: FINDINGS: UTERUS: Anteverted. The uterus measures 8.2 x 5.4 x 4.1 cm. There is no uterine mass. The endometrial stripe measures 7.3 mm in AP diameter which is within normal limits. RIGHT OVARY: 3.0 x 3.3 x 1.9 cm. Non-enlarged, normal echogenicity. There is normal arterial inflow and venous outflow present in the right ovary. LEFT OVARY: 4.4 x 2.1 x 2.5 cm. There is a 1.6 cm probable cyst or dominant follicle. There is normal arterial inflow and venous outflow present in the left ovary. FREE FLUID: None. US/Pelvic (Non ) IMPRESSION: Left ovarian cyst or follicle. Electronically Signed: Rosales Griffin DO at 17:26 EST Reading Location ID and State: [facility] / [place] Tel [phone], Service support ,
--- OUTSIDE RECORDS SUMMARY | 2023-10-07 17:34 | XMS RPT_ITS | CCD ---
Author Name Unknown Address [address] [address] [place] [address] Organization [facility] Care Team Providers Care Cathodic Protection Technician Name Role Phone Dionte Hoffman Unavailable PETR DOVER Unavailable Unavailable PETR DOVER Unavailable Unavailable STANISLAWPETR Unavailable Unavailable STANISLAW PETR J Unavailable Unavailable STANISLAWPETR Unavailable Unavailable STANISLAWPETR Unavailable Unavailable STANISLAWPETR Unavailable Unavailable PETR DOVER Unavailable Unavailable Dionte Hoffman Primary Care Provid er Kitty, Ugo F Admitting Unavailable Kitty, Ugo F Attending Unavailable Kitty, Ugo F Admitting Unavailable Kitty, Ugo F Attending Unavailable Dionte Hoffman Primary Care Provid er Dionte Hoffman Primary Care Provid er Self Unavailable Unavailable Dionte Hoffman DO Primary Care Pro vider DIONTE HOFFMAN Primary Care Fre[place] vailable NYA FAJARDO Admitting Unavailable NYA FAJARDO Attending Unavailable DIONTE HOFFMAN Primary Care [place] vailable Dionte Hoffman DO Primary Care Provider Dionte Hoffman DO Primary Care Pro vider Dionte Hoffman Primary Care Provid er Self Unavailable Unavailable Nya Fajardo Unavailable Dionte Hoffman DO Primary Care Pro vider DIONTE HOFFMAN Primary Care [place] vailable DIONTE HOFFMAN Admitting [place] vailable Curtis [facility] Pro vider Curtis Delonte [facility] Provid er Self Unavailable Unavailable Nya Fajardo Unavailable Curtis GARDNER Dionte Primary Care Provider AME AMAYA Attending Unavailable [facility] Fre[place] vailable [facility] [place] vailable BASIL RAMIREZ Attending Unavailable EULA CORADO Attending Unavailable [facility] [place] vailable JOSE LUIS, AME RICHARDS Attending Unavailable [facility] [place] vailable [facility] [place] vailable CURTIS [place] ADAM Attending [place] vailable [facility] [place] vailable JOSE LUIS, AME RICHARDS Attending Unavailable [facility] [place] vailable CATINA KHAN Attending Unavailable [facility] [place] vailable JADE PRABHAKAR Admitting Unavailab diego PRABHAKAR, JADE OLMEDO Referring Unavailab le CURTIS [facility] [place] vailable JADE PRABHAKAR Attending Unavailab TENISHA Price Attending Unavailable [facility] [place] vailable CURTIS [facility] Unavailab le KATHI CLARKE Referring Unavailable CURTIS [facility] Unavailab KATHI Hirsch Attending Unavailable CURTIS [facility] Unavailab le LUCY CHEUNG Attending Unavailable LUCY CHEUNG [facility]av[facility] NATHAN Graham Attending Unavailable NATHAN CHASE Referring Unavailable CURTIS [facility] Unavailab le Self Unavailable Unavailable DELONTE HOFFMAN ADAM Referring [place] vailable NIR MARCELO, VINCENT Attending Unavailable [facility] [place] vailable NIR MARCELO, VINCENT Attending Unavailable [facility] [place] vailable KAHTI CLARKE P Referring Unavailable VINCE, KATHI P Attending Unavailable [facility] Care [place] vailable VINCE, KATHI P Attending Unavailable CURTIS [place] ADAM Referring [place] vailable CURTIS [facility] Fre[place] vailable VINCE, KATHI P Referring Unavailable [facility] Fre[place] vailable VINCE, KATHI P Referring Unavailable CURTIS [place] ADAM [facility] Fre[place] vailable VINCE, KATHI P Attending Unavailable CURTIS [place] ADAM [facility] Fre[place] vailable DIONTE HOFFMAN Referring [place] vailable CURTIS [facility] Fre[place] vailable VINCE, KATHI P Attending Unavailable CURTIS [facility] Referring [place] vailable [facility] Fre[place] vailable Medications Current Medications Medication Drug Class(es) Dates Sig (Normalized) Sig (Original) acetaminophen 250 mg / aspirin 250 mg / caffeine 65 mg oral tablet (7 sources) Nonsteroidal Anti-inflammatory Drug, Central Nervous System Stimulant, Methylxanthine aspirin-acetaminop hen-caffeine 250-250-65 MG Tab take by mouth. 0 Active Completed/Discontinued Medications Medication Drug Class(es) Dates Sig (Normalized) Sig (Original) acetaminophen 500 mg oral tablet (2 sources) Start: 01-21-2023 End: 01-21-2023 acetaminophen (TYLENOL) tablet 1,000 mg Problems Active Problems Problem Classification Problem Date Documented Da te Episodic/Chronic Allergic reactions (2 sources) Allergic disposition; Translations: [Urticaria] Episodic Asthma (1 source) Mild intermittent asthma; Translations: [Mild intermittent asthmatic bronchitis with acute exacerbation] Chronic Deficiency and other anemia (16 sources) Iron deficiency anemia due to blood loss; Translations: [Iron deficiency anemia secondary to blood loss (chronic)] Onset: 02-27-2021 Chronic Deficiency and other anemia (1 source) Iron deficiency anemia secondary to blood loss (chronic); Translations: [Iron deficiency anemia due to chronic blood loss] Onset: 02-27-2021 Chronic Deficiency and other anemia (1 source) Anemia; Translations: [Anemia, unspecified type] Episodic Esophageal disorders (12 sources) Eosinophilic esophagitis; Translations: [Eosinophilic esophagitis] Onset: 02-10-2021 Chronic Essential hypertension (1 source) Essential hypertension; Translations: [Essential hypertension] Chronic Female infertility (6 sources) Anovulation; Translations: [Female infertility associated with anovulation] Onset: 02-24-2017 02-24-2017 Chronic Genitourinary symptoms and ill-defined conditions (6 sources) Urinary symptoms ; Translations: [Unspecified symptoms and signs involving the genitourinary system] Onset: 11-30-2022 11-30-2022 Episodic Influenza (1 source) Influenza due to Influenza A virus; Translations: [Influenza due to other identified influenza virus with other respiratory manifestations] Episodic Menstrual disorders (11 sources) Amenorrhea, unspecified; Translations: [Oligomenorrhea] Onset: 02-15-2017 02-15-2017 Chronic Nonspecific chest pain (1 source) Tight chest; Translations: [Other chest pain] Episodic Open wounds of extremities (3 sources) Unspecified open wound of unspecified toe(s) with damage to nail, initial encounter; Translations: [Avulsion of toenail] Onset: 01-21-2023 Episodic Other acquired deformities (1 source) Thoracogenic scoliosis; 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, thoracic region] Onset: 03-17-2021 03-17-2021 Chronic Other and unspecified benign neoplasm (1 source) Benign neoplasm of soft tissue; Translations: [Melanocytic nevi, unspecified] Episodic Other connective tissue disease (2 sources) Muscle pain; Translations: [Myalgia] Episodic Other connective tissue disease (1 source) Pain of toe of right foot; Translations: [Pain in right toe(s)] Episodic Other endocrine disorders (6 sources) Polycystic ovary syndrome; Translations: [Polycystic ovarian syndrome] Onset: 02-24-2017 02-24-2017 Chronic Other endocrine disorders (6 sources) Hyperprolactinemia; Translations: [Hyperprolactinemia ] Onset: 02-24-2017 02-24-2017 Chronic Other gastrointestinal disorders (1 source) Diarrhea of presumed infectious origin; Translations: [Diarrhea, unspecified] Episodic Other lower respiratory disease (2 sources) Cough; Translations: [Cough] Episodic Other nervous system disorders (1 source) Chronic pain syndrome; Translations: [Chronic pain syndrome] Episodic Other nervous system disorders (1 source) Skin tenderness; Translations: [Other disturbances of skin sensation] Episodic Other screening for suspected conditions (not mental disorders or infectious disease) (3 sources) Possible ; Translations: [Encounter for test, result unknown] Onset: 12-02-2022 12-02-2022 Episodic Other skin disorders (1 source) Excessive sweating; Translations: [Generalized hyperhidrosis] Episodic Unclassified (1 source) Follow-up / 145() Onset: 05-19-2017 Unclassified (1 source) Missed Menses / [id number]() Onset: 05-18-2017 Unclassified (1 source) Cough, unspecified; Translations: [Cough, unspecified] Onset: 04-05-2022 Urinary tract infections (3 sources) Cystitis; Translations: [Cystitis, unspecified without hematuria] Onset: 12-02-2022 12-02-2022 Episodic Past or Other Problems Problem Classification Problem Date Documented Da te Episodic/Chronic Deficiency and other anemia (20 sources) Iron deficiency anemia; Translations: [Iron deficiency anemia, unspecified] Onset: 1 Episodic Deficiency and other anemia (9 sources) Iron deficiency anemia secondary to inadequate dietary iron intake; Translations: [Other iron deficiency anemias] Onset: 1 Episodic Deficiency and other anemia (10 sources) Microcytic anemia; Translations: [Iron deficiency anemia, unspecified] Onset: 1 Episodic Deficiency and other anemia (3 sources) Iron deficiency anemia, unspecified; Translations: [Iron deficiency anemia, unspecified] Onset: 1 Episodic Deficiency and other anemia (1 source) Other iron deficiency anemias; Translations: [Iron deficiency anemia secondary to inadequate dietary iron intake] Onset: 1 Episodic Fever of unknown origin (4 sources) Fever; Translations: [Fever, unspecified] Onset: 2 Episodic Gastrointestinal hemorrhage (14 sources) Gastrointestinal hemorrhage; Translations: [Hemorrhage of anus and rectum] Onset: 1 Episodic Immunizations and screening for infectious disease (2 sources) Viral antibody level - finding; Translations: [Other specified abnormal immunological findings in serum] Onset: 1 03-17-2021 Episodic Malaise and fatigue (13 sources) Fatigue; Translations: [Other fatigue] Onset: 1 Episodic Nausea and vomiting (3 sources) Nausea and vomiting; Translations: [Nausea with vomiting, unspecified] Onset: 2 Episodic Noninfectious gastroenteritis (3 sources) Gastroenteritis; Translations: [Noninfective gastroenteritis and colitis, unspecified] Onset: 2 Episodic Other and unspecified benign neoplasm (2 sources) Melanocytic nevi, unspecified; Translations: [Melanocytic nevi, unspecified] Onset: 2 Episodic Other bone disease and musculoskeletal deformities (11 sources) Disorder of skeletal system; Translations: [Disorder of bone, unspecified] Onset: 1 Episodic Other connective tissue disease (1 source) Diastasis recti; Translations: [Separation of muscle (nontraumatic), other site] Onset: 1 03-17-2021 Episodic Other connective tissue disease (1 source) Low back pain; Translations: [Myalgia, other site] Onset: 1 03-17-2021 Episodic Other connective tissue disease (2 sources) Pain in right toe(s); Translations: [Pain in right toe(s)] Onset: 3 Episodic Other gastrointestinal disorders (9 sources) Alteration in bowel elimination; Translations: [Change in bowel habit] Onset: 1 Episodic Other gastrointestinal disorders (14 sources) Mucus in stool; Translations: [Other fecal abnormalities] Onset: 1 Episodic Other gastrointestinal disorders (5 sources) Altered bowel function; Translations: [Change in bowel habit] Onset: 1 11-26-2020 Episodic Other gastrointestinal disorders (2 sources) Diarrhea, unspecified; Translations: [Diarrhea, unspecified] Onset: 2 Episodic Other nervous system disorders (2 sources) Other disturbances of skin sensation; Translations: [Other disturbances of skin sensation] Onset: 2 Episodic Other skin disorders (2 sources) Bromhidrosis; Translations: [Bromhidrosis] Onset: 2 Episodic Other skin disorders (1 source) Bromhidrosis; Translations: [Bromhidrosis] Onset: 2 Episodic Other upper respiratory infections (5 sources) Viral upper respiratory tract infection; Translations: [Acute upper respiratory infection, unspecified] Onset: 2 Episodic Residual codes; unclassified (11 sources) FH: Psoriasis; Translations: [Family history of diseases of the skin and subcutaneous tissue] Onset: 1 Episodic Residual codes; unclassified (11 sources) Family history of psoriasis with arthropathy; Translations: [Family history of arthritis] Onset: 1 Episodic Residual codes; unclassified (11 sources) Family history of systemic lupus erythematosus; Translations: [Family history of other diseases of the musculoskeletal system and connective tissue] Onset: 1 Episodic Spondylosis; intervertebral disc disorders; other back problems (20 sources) Neck pain; Translations: [Cervicalgia] Onset: 1 Episodic Unclassified (1 source) Follow-up; Translations: [Follow-up] Onset: 7 Unclassified (1 source) Missed Menses; Translations: [Missed Menses] Onset: 7 Unclassified (1 source) Cough, unspecified; Translations: [Cough, unspecified] Onset: 2 Viral infection (3 sources) Verruca vulgaris; Translations: [Viral wart, unspecified] Onset: 2 Episodic Results Test Name Value Interpretation Reference Range Facil it Vital Signs Date Time Vital Sign Value Performing Clinician Faci lity 01-21-2023 16:15-0400 Body mass index (BMI) [Ratio] 22.9 kg/m2 Tenisha LampQwilr PA-C Work Phone: [facility] 01-21-2023 16:15-0400 Body temperature 98.91 [degF] Tenisha LampQwilr PA-C Work Phone: [facility] 01-21-2023 16:15-0400 Body weight 60.51 kg Tenisha Lamport PA-C Work Phone: [facility] 01-21-2023 16:15-0400 Diastolic blood pressure 87 mm[Hg] Tenisha Lamport PA-C Work Phone: [facility] 01-21-2023 16:15-0400 Heart rate 73 /min Tenisha Lamport PA-C Work Phone: [facility] 01-21-2023 16:15-0400 Respiratory rate 16 /min Tenisha LampQwilr PA-C Work Phone: [facility] 01-21-2023 16:15-0400 SaO2% (BldA) [Mass fraction] 96 % Tenisha Joseph PA-C Work Phone: [facility] 01-21-2023 16:15-0400 Systolic blood pressure 130 mm[Hg] Tenisha Joseph PA-C Work Phone: [facility] 12-14-2022 11:15-0400 Body height 162.6 cm Eula Corado PAINT TECHNICIAN Work Phone: [facility] 12-14-2022 11:15-0400 Body mass index (BMI) [Ratio] 22.83 kg/m2 Eula Corado PAINT TECHNICIAN Work Phone: [facility] 12-14-2022 11:15-0400 Body temperature 97.81 [degF] Eula Corado PAINT TECHNICIAN Work Phone: [facility] 12-14-2022 11:15-0400 Body weight 60.33 kg Eula Corado PAINT TECHNICIAN Work Phone: [facility] 12-14-2022 11:15-0400 Diastolic blood pressure 71 mm[Hg] Eula Corado PAINT TECHNICIAN Work Phone: [facility] 12-14-2022 11:15-0400 Heart rate 71 /min Eula Corado PAINT TECHNICIAN Work Phone: [facility] 12-14-2022 11:15-0400 Respiratory rate 16 /min Eula Corado PAINT TECHNICIAN Work Phone: [facility] 12-14-2022 11:15-0400 Systolic blood pressure 110 mm[Hg] Eula Corado PAINT TECHNICIAN Work Phone: [facility] 12-02-2022 19:36-0400 Diastolic blood pressure 95 mm[Hg] Catina Estradais PAINT TECHNICIAN Work Phone: [facility] 12-02-2022 19:36-0400 Systolic blood pressure 138 mm[Hg] Catina Khan PAINT TECHNICIAN Work Phone: [facility] 12-02-2022 19:26-0400 Body height 162.6 cm Catina Khan PAINT TECHNICIAN Work Phone: [facility] 12-02-2022 19:26-0400 Body mass index (BMI) [Ratio] 23.64 kg/m2 Catina Estradais PAINT TECHNICIAN Work Phone: [facility] 12-02-2022 19:26-0400 Body temperature 99.39 [degF] Catina Khan PAINT TECHNICIAN Work Phone: [facility] 12-02-2022 19:26-0400 Body weight 62.46 kg Catina Khan PAINT TECHNICIAN Work Phone: [facility] 12-02-2022 19:26-0400 Heart rate 77 /min Catina Khan PAINT TECHNICIAN Work Phone: [facility] 12-02-2022 19:26-0400 Respiratory rate 17 /min Catina Estradais PAINT TECHNICIAN Work Phone: [facility] 12-02-2022 19:26-0400 SaO2% (BldA) [Mass fraction] 98 % Catina Estradais PAINT TECHNICIAN Work Phone: [facility] 11-30-2022 15:30-0400 Body height 162.6 cm Ame Jose Luis PA-C Work Phone: [facility] 11-30-2022 15:30-0400 Body mass index (BMI) [Ratio] 23 kg/m2 Ame Jose Luis PA-C Work Phone: [facility] 11-30-2022 15:30-0400 Body temperature 97.7 [degF] Ame Jose Luis PA-C Work Phone: [facility] 11-30-2022 15:30-0400 Body weight 60.78 kg Ame Jose Luis PA-C Work Phone: [facility] 11-30-2022 15:30-0400 Diastolic blood pressure 74 mm[Hg] Ame Jose Luis PA-C Work Phone: [facility] 11-30-2022 15:30-0400 Heart rate 79 /min Ame Jose Luis PA-C Work Phone: [facility] 11-30-2022 15:30-0400 Systolic blood pressure 119 mm[Hg] Ame Amaya PA-C Work Phone: [facility] 08-09-2022 10:45-0500 Body temperature 98.71 [degF] Chair Manati Work Phone: [facility] 08-09-2022 10:45-0500 Diastolic blood pressure 81 mm[Hg] Chair Manati Work Phone: [facility] 08-09-2022 10:45-0500 Heart rate 78 /min Chair Manati Work Phone: [facility] 08-09-2022 10:45-0500 Respiratory rate 16 /min Chair Manati Work Phone: [facility] 08-09-2022 10:45-0500 Systolic blood pressure 127 mm[Hg] Chair Manati Work Phone: [facility] 07-29-2022 10:41-0500 Body temperature 98.2 [degF] Lucy Cheung MD Work Phone: [facility] 07-29-2022 10:41-0500 Diastolic blood pressure 88 mm[Hg] Lucy Cheung MD Work Phone: [facility] 07-29-2022 10:41-0500 Heart rate 73 /min Lucy Cheung MD Work Phone: [facility] 07-29-2022 10:41-0500 Respiratory rate 16 /min Lucy Cheung MD Work Phone: [facility] 07-29-2022 10:41-0500 SaO2% (BldA) [Mass fraction] 100 % Lucy Cheung MD Work Phone: [facility] 07-29-2022 10:41-0500 Systolic blood pressure 130 mm[Hg] Lucy Cheung MD Work Phone: [facility] 07-29-2022 10:40-0500 Body weight 61.69 kg Lucy Cheung MD Work Phone: [facility] 04-05-2022 16:14-0400 Body height 162.6 cm Dionte Hoffman DO Work Phone: [facility] 04-05-2022 16:14-0400 Body mass index (BMI) [Ratio] 21.97 kg/m2 Christjianer Curtis DO Work Phone: [facility] 04-05-2022 16:14-0400 Body temperature 98.8 [degF] Delonteer Curtis DO Work Phone: [facility] 04-05-2022 16:14-0400 Body weight 58.06 kg Dionte Hoffman DO Work Phone: [facility] 04-05-2022 16:14-0400 Diastolic blood pressure 84 mm[Hg] Dionte Hoffman DO Work Phone: [facility] 04-05-2022 16:14-0400 Heart rate 118 /min Dionte Hoffman DO Work Phone: [facility] 04-05-2022 16:14-0400 Systolic blood pressure 116 mm[Hg] Delonteer Curtis DO Work Phone: [facility] 03-26-2022 14:31-0400 Body mass index (BMI) [Ratio] 23.52 kg/m2 Jade Prabhakar PAINT TECHNICIAN Work Phone: [facility] 03-26-2022 14:31-0400 Body temperature 98.71 [degF] Jade Prabhakar PAINT TECHNICIAN Work Phone: [facility] 03-26-2022 14:31-0400 Body weight 62.14 kg Jade Prabhakar PAINT TECHNICIAN Work Phone: [facility] 03-26-2022 14:31-0400 Diastolic blood pressure 78 mm[Hg] Jade Prabhakar PAINT TECHNICIAN Work Phone: [facility] 03-26-2022 14:31-0400 Heart rate 90 /min Jade Prabhakar PAINT TECHNICIAN Work Phone: [facility] 03-26-2022 14:31-0400 Respiratory rate 18 /min Jade Prabhakar PAINT TECHNICIAN Work Phone: [facility] 03-26-2022 14:31-0400 SaO2% (BldA) [Mass fraction] 97 % Jade Prabhakar PAINT TECHNICIAN Work Phone: [facility] 03-26-2022 14:31-0400 Systolic blood pressure 114 mm[Hg] Jade Prabhakar PAINT TECHNICIAN Work Phone: [facility] 01-29-2022 10:29-0400 Body temperature 98.49 [degF] Lucy Cheung MD Work Phone: [facility] 01-29-2022 10:29-0400 Body weight 61.42 kg Lucy Cheung MD Work Phone: [facility] 01-29-2022 10:29-0400 Diastolic blood pressure 80 mm[Hg] Lucy Cheung MD Work Phone: [facility] 01-29-2022 10:29-0400 Heart rate 69 /min Lucy Cheung MD Work Phone: [facility] 01-29-2022 10:29-0400 Respiratory rate 16 /min Lucy Cheung MD Work Phone: [facility] 01-29-2022 10:29-0400 SaO2% (BldA) [Mass fraction] 99 % Lucy Cheung MD Work Phone: [facility] 01-29-2022 10:29-0400 Systolic blood pressure 123 mm[Hg] Lucy Cheung MD Work Phone: [facility] 11-13-2021 12:20-0400 Diastolic blood pressure 80 mm[Hg] Chair Manati Work Phone: [facility] 11-13-2021 12:20-0400 Heart rate 59 /min Chair Manati Work Phone: [facility] 11-13-2021 12:20-0400 Respiratory rate 16 /min Chair Manati Work Phone: [facility] 11-13-2021 12:20-0400 Systolic blood pressure 142 mm[Hg] Chair Manati Work Phone: [facility] 11-13-2021 10:09-0400 Body temperature 98.1 [degF] Chair Neil Work Phone: [facility] 11-13-2021 10:09-0400 SaO2% (BldA) [Mass fraction] 97 % Chair Neil Work Phone: [facility] 11-03-2021 14:26-0400 Body height 162.6 cm Gibran Aranda PA-C Work Phone: [facility] 11-03-2021 14:26-0400 Body mass index (BMI) [Ratio] 22.52 kg/m2 Gibran Aranda PA-C Work Phone: [facility] 11-03-2021 14:26-0400 Body temperature 98.49 [degF] Gibran Aranda PA-C Work Phone: [facility] 11-03-2021 14:26-0400 Body weight 59.51 kg Gibran Aranda PA-C Work Phone: [facility] 11-03-2021 14:26-0400 Diastolic blood pressure 83 mm[Hg] Gibran Aranda PA-C Work Phone: [facility] 11-03-2021 14:26-0400 Heart rate 107 /min Gibran Aranda PA-C Work Phone: [facility] 11-03-2021 14:26-0400 Respiratory rate 18 /min Gibran Aranda PA-C Work Phone: [facility] 11-03-2021 14:26-0400 SaO2% (BldA) [Mass fraction] 95 % Gibran Aranda PA-C Work Phone: [facility] 11-03-2021 14:26-0400 Systolic blood pressure 128 mm[Hg] Gibran Aranda PA-C Work Phone: [facility] 02-10-2021 13:11-0400 Body height 162.6 cm Tenisha Heath Jr., Work Phone: [facility] 02-10-2021 13:11-0400 Body mass index (BMI) [Ratio] 21.9 kg/m2 Tenisha Heath Jr., DO Work Phone: [facility] 02-10-2021 13:11-0400 Body temperature 97.7 [degF] Tenisha Heath Jr., DO Work Phone: [facility] 02-10-2021 13:11-0400 Body weight 57.88 kg Tenisha Heath Jr., DO Work Phone: [employer] [facility] 02-10-2021 13:11-0400 Diastolic blood pressure 77 mm[Hg] Tenisha Heath Jr., DO Work Phone: [facility] 02-10-2021 13:11-0400 Heart rate 70 /min Tenisha Heath Jr., DO Work Phone: [facility] 02-10-2021 13:11-0400 SaO2% (BldA) [Mass fraction] 99 % Tenisha Heath Jr., DO Work Phone: [employer] [facility] 02-10-2021 13:11-0400 Systolic blood pressure 107 mm[Hg] Tenisha Heath Jr., DO [facility] 12-10-2020 11:47-0400 Body temperature 98.1 [degF] Nya Fajardo MD Work Phone: [facility] 12-10-2020 11:47-0400 Diastolic blood pressure 75 mm[Hg] Nya Fajardo MD Work Phone: [facility] 12-10-2020 11:47-0400 Heart rate 71 /min Nya Fajardo MD Work Phone: [facility] 12-10-2020 11:47-0400 Respiratory rate 16 /min Nya Fajardo MD Work Phone: [facility] 12-10-2020 11:47-0400 SaO2% (BldA) [Mass fraction] 100 % Nya Fajardo MD Work Phone: [facility] 12-10-2020 11:47-0400 Systolic blood pressure 110 mm[Hg] Nya Fajardo MD Work Phone: [facility] 12-10-2020 09:08-0400 Body height 162.6 cm Nya Fajardo MD Work Phone: [facility] 12-10-2020 09:08-0400 Body mass index (BMI) [Ratio] 21.46 kg/m2 Nya Fajardo MD Work Phone: [facility] 12-10-2020 09:08-0400 Body weight 56.7 kg Nya Fajardo MD Work Phone: [facility] 08-25-2020 15:51-0500 BP Diastolic 84 mm[Hg] [facility] 08-25-2020 15:51-0500 BP Systolic 128 mm[Hg] [facility] 08-25-2020 15:29-0500 BMI (Body Mass Index) 22.49 kg/m2 [facility] 08-25-2020 15:29-0500 Body Temperature 97.9 [degF] Dionte Hoffman [facility] 08-25-2020 15:29-0500 Body weight 59.42 kg Dionte Hoffman [facility] 08-25-2020 15:29-0500 Height 162.6 cm [facility] 08-25-2020 15:29-0500 Pulse (Heart Rate) 96 /min [facility] 06-24-2020 18:05-0500 BP Diastolic 84 mm[Hg] Dionte Hoffman [facility] 06-24-2020 18:05-0500 BP Systolic 132 mm[Hg] Dionte Hoffman [facility] 06-24-2020 15:12-0500 BMI (Body Mass Index) 21.63 kg/m2 [facility] 06-24-2020 15:12-0500 Body Temperature 98.8 [degF] Dionte Hoffman [facility] 06-24-2020 15:12-0500 Body weight 57.15 kg [facility] 06-24-2020 15:12-0500 Height 162.6 cm Dionte Hoffman [facility] 06-24-2020 15:12-0500 Pulse (Heart Rate) 102 /min [facility] 13:31-0400 BP Diastolic 86 mm[Hg] Dionte Hoffman [facility] 01-31-2020 13:31-0400 BP Systolic 136 mm[Hg] Dionte Hoffman [facility] 01-31-2020 13:04-0400 BMI (Body Mass Index) 21.83 kg/m2 Dionte Hoffman [facility] 01-31-2020 13:04-0400 Body Temperature 99 [degF] Dionte Hoffman [facility] 01-31-2020 13:04-0400 Body weight 57.7 kg Dionte Hoffman [facility] 01-31-2020 13:040400 Height 162.6 cm [facility] 01-31-2020 13:04-0400 Pulse (Heart Rate) 98 /min Dionte Hoffman [facility] Encounters Encounter Date Encounter Type Care Provider Facility Start: 09-15-2023 End: 09-16-2023 ambulatory KATHI CLARKE Facility:[facility] Start: 09-05-2023 End: 09-05-2023 ambulatory KATHI CLARKE Facility:[facility] Start: 09-02-2023 End: 09-02-2023 ambulatory DIONTE ADAM CURTIS Facility:[facility] Start: 07-04-2023 End: 07-04-2023 ambulatory Kathi Clarke FIELD SERVICE COORDINATOR.PAINT TECHNICIAN Work Phone: Hematology/Oncology Procedures Date Procedure Procedure Detail Performing Clinician Start: 12-02-2022 End: 12-02-2022 Urine test visual color cmprsn meths Catina Brianna Khan PAINT TECHNICIAN Work Phone: Start: 11-30-2022 End: 11-30-2022 Urnls dip stick/tablet rgnt non-auto w/o micrscp Ame Amaya PA-C Work Phone: Start: 04-05-2022 Adult depression scr eening assessment Jonhhaley Hoffman DO Work Phone: Start: 03-26-2022 Radiologic exam ches t 2 views Jade Prabhakar PAINT TECHNICIAN Work Phone: Start: 03-26-2022 Urine test visual color cmprsn meths Jade Lisa Prabhakar PAINT TECHNICIAN Work Phone: Start: 01-29-2022 Adult depression scr eening assessment Lucy Cheung MD Work Phone: Start: 11-03-2021 End: 11-03-2021 Infectious agent dna/rna influenza 1st 2 types Gibran Aranda PA-C Work Phone: Start: 10-26-2021 Adult depression scr eening assessment Chair Neil Work Phone: Start: 02-10-2021 End: 02-10-2021 Radiologic exam sacroiliac joints 3/more views Tenisha Heath DO Work Phone: Start: 12-10-2020 Colonoscopy Nya Fajardo MD Work Phone: Start: 12-10-2020 Cul bact aerobic add l meths definitive ea isol Nya Fajardo MD Work Phone: Start: 12-10-2020 Endoscopy of esophagus Nya Fajardo MD Work Phone: Start: 12-10-2020 Gonadotropin chorion ic qualitative Kiara Cordova MD Work Phone: Start: 09-04-2020 EXTERNAL LAB External P rovider Start: 10-19-2018 HM PAP SMEAR Historical Provider Start: 10-19-2018 Microscopic observat ion [Identifier] in Cervix by Cyto stain Historical Provider Start: 10-17-2018 Microscopic observat ion [Identifier] in Cervix by Cyto stain Dionte Hoffman Start: 09-19-2017 Microscopic observat ion [Identifier] in Cervix by Cyto stain Ugo Tang Plan of Treatment Date Care Activity Detail Author Start: 01-21-2033 Tetanus vaccination Tetanus: Every 1 0yrs [facility] Start: 01-21-2033 Urine microalbumin profile DTa P,Tdap,Td Vaccine (11 - Td or Tdap) [facility] Start: 01-29-2029 Tetanus vaccination [facility] Start: 01-10-2028 Tetanus vaccination [facility] Start: 12-15-2023 COVID-19 Vaccine (#1) COVID-19 Vacci ne (#1) [facility] Immunizations Immunization Date Immunization Notes Care Provider Fa cilirené 01-21-2023 diphtheria, tetanus toxoids and acellular pertussis vaccine, unspecified formulation Tenisha Joseph PA-C Work Phone: [facility] 01-21-2023 tetanus toxoid, redu ambar diphtheria toxoid, and acellular pertussis vaccine, adsorbed Tenisha Goddardort PA-Avani Work Phone: [facility] 01-29-2019 diphtheria, tetanus toxoids and acellular pertussis vaccine Dionte Hoffman DO Work Phone: [facility] 01-29-2019 diphtheria, tetanus toxoids and acellular pertussis vaccine, unspecified formulation Dionte Curtis DO Work Phone: [facility] 01-29-2019 tetanus toxoid, redu ambar diphtheria toxoid, and acellular pertussis vaccine, adsorbed ChristWishdatesapple Curtis DO Work Phone: [facility] 01-09-2018 diphtheria, tetanus toxoids and acellular pertussis vaccine Delonteer Curtis DO Work Phone: [facility] 01-09-2018 diphtheria, tetanus toxoids and acellular pertussis vaccine, unspecified formulation Dionte Hoffman DO Work Phone: [facility] 01-09-2018 tetanus toxoid, redu ambar diphtheria toxoid, and acellular pertussis vaccine, adsorbed [facility] 05-18-2016 tetanus toxoid, redu ambar diphtheria toxoid, and acellular pertussis vaccine, adsorbed [facility] 03-20-2002 hepatitis B vaccine, pediatric or pediatric/adolescent dosage [facility] 02-14-2002 hepatitis B vaccine, pediatric or pediatric/adolescent dosage [facility] 12-19-2000 measles, mumps and r ubella virus vaccine [facility] 05-12-1995 diphtheria, tetanus toxoids and acellular pertussis vaccine, unspecified formulation [facility] 05-12-1995 trivalent poliovirus vaccine, live, oral [facility] 07-06-1993 diphtheria, tetanus toxoids and pertussis vaccine [facility] 05-05-1992 diphtheria, tetanus toxoids and pertussis vaccine [facility] 05-05-1992 haemophilus influenz ae type b vaccine, conjugate unspecified formulation [facility] 05-05-1992 measles, mumps and r ubella virus vaccine [facility] 05-05-1992 trivalent poliovirus vaccine, live, oral [facility] 05-01-1990 diphtheria, tetanus toxoids and pertussis vaccine [facility] 05-01-1990 trivalent poliovirus vaccine, live, oral [facility] Payers Date Payer Category Payer Unknown [facility] [id number] 2020-Present [address] [place] [address] [id number] 2019 Unknown [id number] 2018 Medicaid [id number] 2018 Medicaid [facility] MEDICAID [facility] MEDICA[facility] xxxxxxxxxxx 2018-Present xxxxxxxxxxx [id number] 2018 Medicaid [id number] 2018 Medicaid [id number]. [id number] 2016 Unknown [id number] 2015 Unknown [id number] 1989 Unknown [id number] 2.16.840.1.693715.3.579.2.900 1989 Unknown [id number] 2.16.840.1.717156.3.579.2.90 1989 Unknown [id number] 2.16.840.1.626238.3.579.2.90 1989 Unknown [id number] 2.16.840.1.419192.3.579.2.90 1989 Unknown [id number] 2.16.840.1.027531.3.579.2.90 1989 Unknown [id number] 2.16.840.1.155283.3.579.2.90 1989 Unknown [id number] 2.16.840.1.463826.3.579.2. 1989 Unknown [id number] 2.16.840.1.803855.3.579.2.90 1989 Unknown [id number] 2.16.840.1.081815.3.579.2. 1989 Unknown [id number] 2.16.840.1.262877.3.579.2.90 1989 Unknown [id number] 2.16.840.1.727061.3.579.2. 1989 Unknown [id number] 2.16.840.1.676016.3.579.2.90 1989 Unknown [id number] 2.16.840.1.367251.3.579.2. 1989 Unknown [id number] 2.16.840.1.805869.3.579.2.983 1989 Unknown [id number] 2.16.840.1.881104.3.579.2.983 1989 Unknown [id number] 2.16.840.1.400338.3.579.2.983 1989 Unknown [id number] 2.16.840.1.880604.3.579.2.983 1989 Unknown [id number] 2.16.840.1.798184.3.579.2.983 1989 Unknown [id number] 2.16.840.1.173085.3.579.2.903 1989 Unknown [id number] 2.16.840.1.606971.3.579.2.903 Social History Date Type Detail Facility Start: 10-21-2016 End: 09-05-2020 Tobacco smoking status MSIS Never smoker [facility] Work Phone: Start: 1990 Sex Assigned At Not on file [facility] Work Phone: Start: 01-31-2020 End: 01-21-2023 Alcohol intake Current non-drinker of alcohol (finding) [facility] Start: 10-24-2021 End: 12-14-2022 Exposure to SARS-CoV-2 (event) Not sure [facility] Start: 06-24-2020 End: 09-05-2020 Tobacco use and exposure Never used [facility] Start: 09-05-2020 End: 06-30-2021 Alcohol intake Lifetime non-drinker (finding) [facility] Start: 09-05-2020 End: 04-05-2022 History SDOH Alcohol Frequency 1 [facility] Start: 04-05-2022 History SDOH Social Connections Membership 2 [facility] Start: 04-05-2022 History SDOH Financial 5 [facility] Start: 06-04-2021 Alcohol intake Current drinker of alcohol (finding) [facility] Start: 06-04-2021 Alcohol Comment occ [facility] Start: 04-05-2022 End: 06-07-2023 History of Social function [facility] Start: 04-05-2022 End: 06-07-2023 Social connection and isolation panel [facility] Frequency of Communication with Friends and Family Not on file [facility] Do you belong to any clubs or organizations such as shinto groups, unions, fraternal or athletic groups, or school groups? No [facility] (I/We) worried teresa er (my/our) food would run out before (I/we) got money to buy more. Never true [facility] Start: 05-23-2018 Gender identity Identifies as female gender (finding) [facility] Start: 05-23-2018 Sexual orientation Heterosexual (finding) [facility] Goals Date Patient Goal Desired Activity /State Personal health goal Clinical Notes 12-10-2020 to 09-15-2023 Kathi Clarke APRN.PAINT TECHNICIAN - 07/04/2023 4:11 PM Kathi Christensen APRN.CNP - 06/07/2023 10:34 AM Tenisha Valiente PA-C - 01/21/2023 4:29 PM EDTPatient InstructionsAttachmentsAttachments Note Date & Type Note Facility 09-15-2023 Note HNO ID: [id number] Author: JADE BURTON RN Service: ? Author Type: Registered Nurse Type: Progress Notes Filed: 09/15/2023 15:43 Note Text: Patient tolerated infusion of Monoferric without complications. Denies any questions or needs.Jade Burton RN [facility] 09-05-2023 Note HNO ID: [id number] Author: KATHI CLARKE APRN.[facility] Service: ? Author Type: Nurse Practitioner Type: Progress Notes Filed: 09/05/2023 16:43 Note Text: AMBULATORY TELEPHONE VISIT Lulu Buchanan has consented to this telephone encounter. Persons Present: patient Chief Complaint/Reason: Telephone call to discuss repeat blood tests. HPI: Lulu is a 33-year-old female who we follow for iron deficiency anemia. On 08/09/2022 she had an IV infusion of iron. She typically has heavy menstrual cycles every month with clotting. Her LMP was 08/25/2023 and reports it lasted 5 to 6 days with 3-4 of those days being heavy bleeding. She also reports that she had 2 menstrual cycles in July. She reports that on her iron studies get low she gets irregular menses. In May I had asked her to take Ferrex 150 on the days of her menstrual cycle to see if this would assist in keeping her levels from dropping. At the end of June she began taking a supplement from cow beef livers. She did not start the Ferrex. Data Reviewed: Most recent labs Assessment: (D50.0) Iron deficiency anemia due to chronic blood loss (primary encounter diagnosis) (D50.8) Iron deficiency anemia secondary to inadequate dietary iron intake Plan: Her iron and transferrin saturation levels have dropped significantly. The beef liver iron supplement that she is taking is not working. For this reason I am scheduling her for IV Monoferric and we will repeat labs 8 weeks after the infusion and have a follow-up visit. She will also get Ferrex 150 in our pharmacy when she comes for the infusion. Total Time Spent: 12 minutes Kathi Clarke APRN.PERRY (NOTE: A voice recognition system was used to dictate this note and as such there may be uncorrected errors in grammar, punctuation, pronoun use, etc. Please disregard these and call us with any questions.) [facility] 07-04-2023 Note HNO ID: [id number] Author: Kathi Clarke APRN.CNP Service: ? Author Type: Nurse Practitioner Type: Progress Notes Filed: 07/04/2023 4:48 PM Note Text: AMBULATORY TELEPHONE VISIT Lulu Buchanan has consented to this telephone encounter. Persons Present: patient Chief Complaint/Reason: Telephone call to discuss repeat blood work HPI: Lulu is a 33-year-old female who we follow for iron deficiency anemia. On 08/09/2022 she had an IV infusion of iron. She typically has heavy menstrual cycles every month with clotting. Her LMP was 06/20/2023 lasting 4 days none of which were heavy this time in a long time. Last month I had asked her to take Ferrex 150 on the days of her menstrual cycle to see if this would assist in keeping her levels from dropping. She did not start the oral iron however she did increase her dietary food iron intake. LMP 06/20/2023 (Exact Date) Data Reviewed: Most recent labs FERRITIN Order: [id number] Component Ref Range AND Units 4 d ago FERRITIN 6.24 - 137 NG/ML 51 Comment: PREMENOPAUSAL FEMALES 6.9-282.5 POSTMENOPAUSAL FEMALES 14.0-233.1 Resulting Agency [facility] - [address] - [place] Specimen Collected: 06/30/23 3:06 PM Performed by: [facility] - [address] - [place] Last Resulted: 06/30/23 4:12 PM IRON/IRON BINDING/TRANSFERRIN Order: [id number] Component Ref Range AND Units 4 d ago IRON 37 - 170 UG/DL 87 TOTAL IRON BINDING 250 - 450 UG/DL 337 Transferrin Saturation (%) % 26 Resulting Agency [facility] - [address] - [place] Specimen Collected: 06/30/23 3:06 PM Performed by: [facility] - [address] - [place] Last Resulted: 06/30/23 3:50 PM CBC, EDIF, PLATELET Order: [id number] Component Ref Range AND Units 4 d ago WBC (WHITE BLOOD COUNT) 3.6 - 11.0 10*3/uL 8.6 RBC 4.0 - 5.4 10*6/uL 4.62 HEMOGLOBIN (HGB) 12.0 - 16.0 G/DL 13.3 HEMATOCRIT (HCT) 36.0 - 48.0 % 39.9 MEAN CELL VOLUME 80.0 - 100.0 FL 86.5 Mean Cell HGB 26.0 - 35.0 PG 28.8 MEAN CELL HGB CONCENTRATION 27.0 - 37.0 G/DL 33.3 RBC DISTRIBUTION 11.5 - 14.5 % 13.3 PLATELET COUNT 130 - 400 10*3/uL 288 MEAN PLATELET VOLUME 7.4 - 11.0 FL 7.8 DIFFERENTIAL TYPE % AUTO DIFF NEUTROPHILS 37.0 - 75.0 % 64.9 LYMPHOCYTE 20.0 - 55.0 % 22.7 MONOCYTE % 0.0 - 10.0 % 6.4 EOSINOPHIL % 0.0 - 11.0 % 4.2 BASOPHIL % 0.0 - 2.0 % 1.8 Absolute Neutrophil Count 1.4 - 6.5 10*3/uL 5.6 LYMPHOCYTES, ABSOLUTE 1.2 - 3.4 10*3/uL 2.0 MONOCYTES, ABSOLUTE 0.0 - 0.7 10*3/uL 0.5 ABSOLUTE EOSINOPHIL COUNT 0.0 - 0.7 10*3/uL 0.4 ABSOLUTE BASOPHIL COUNT 0.0 - 0.2 10*3/uL 0.2 Resulting Agency [facility] - [address] - [place] Specimen Collected: 06/30/23 3:06 PM Performed by: [facility] - [address] - [place] Last Resulted: 06/30/23 3:26 PM Assessment: (D50.0) Iron deficiency anemia due to chronic blood loss (primary encounter diagnosis) Plan: CBC and iron stores remain steady to mild improvement. She will get Ferrex 150 and take on days of her menstrual cycle. 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 Total Time Spent: 5 minutes Kathi Clarke APRN.PAINT TECHNICIAN (NOTE: A voice recognition system was used to dictate this note and as such there may be uncorrected errors in grammar, punctuation, pronoun use, etc. Please disregard these and call us with any questions.) [facility] 07-04-2023 History of Present illness Narrative AMBULATORY TELEPHONE VISIT Lluu Buchanan has consented to this telephone encounter. Persons Present: patient Chief Complaint/Reason: Telephone call to discuss repeat blood work HPI: Lulu is a 33-year-old female who we follow for iron deficiency anemia. On 08/09/2022 she had an IV infusion of iron. She typically has heavy menstrual cycles every month with clotting. Her LMP was 06/20/2023 lasting 4 days none of which were heavy this time in a long time. Last month I had asked her to take Ferrex 150 on the days of her menstrual cycle to see if this would assist in keeping her levels from dropping. She did not start the oral iron however she did increase her dietary food iron intake. LMP 06/20/2023 (Exact Date) Data Reviewed: Most recent labs FERRITIN Order: [id number] Component Ref Range & Units 4 d ago FERRITIN 6.24 - 137 NG/ML 51 Comment: PREMENOPAUSAL FEMALES 6.9-282.5 POSTMENOPAUSAL FEMALES 14.0-233.1 Resulting Agency [facility] - [address] - [place] Specimen Collected: 06/30/23 3:06 PM Performed by: [facility] - [address] - [place] Last Resulted: 06/30/23 4:12 PM IRON/IRON BINDING/TRANSFERRIN Order: [id number] Component Ref Range & Units 4 d ago IRON 37 - 170 UG/DL 87 TOTAL IRON BINDING 250 - 450 UG/DL 337 Transferrin Saturation (%) % 26 Resulting Agency [facility] - [address] - [place] Specimen Collected: 06/30/23 3:06 PM Performed by: [facility] - [address] - [place] Last Resulted: 06/30/23 3:50 PM CBC, EDIF, PLATELET Order: [id number] Component Ref Range & Units 4 d ago WBC (WHITE BLOOD COUNT) 3.6 - 11.0 10*3/uL 8.6 RBC 4.0 - 5.4 10*6/uL 4.62 HEMOGLOBIN (HGB) 12.0 - 16.0 G/DL 13.3 HEMATOCRIT (HCT) 36.0 - 48.0 % 39.9 MEAN CELL VOLUME 80.0 - 100.0 FL 86.5 Mean Cell HGB 26.0 - 35.0 PG 28.8 MEAN CELL HGB CONCENTRATION 27.0 - 37.0 G/DL 33.3 RBC DISTRIBUTION 11.5 - 14.5 % 13.3 PLATELET COUNT 130 - 400 10*3/uL 288 MEAN PLATELET VOLUME 7.4 - 11.0 FL 7.8 DIFFERENTIAL TYPE % AUTO DIFF NEUTROPHILS 37.0 - 75.0 % 64.9 LYMPHOCYTE 20.0 - 55.0 % 22.7 MONOCYTE % 0.0 - 10.0 % 6.4 EOSINOPHIL % 0.0 - 11.0 % 4.2 BASOPHIL % 0.0 - 2.0 % 1.8 Absolute Neutrophil Count 1.4 - 6.5 10*3/uL 5.6 LYMPHOCYTES, ABSOLUTE 1.2 - 3.4 10*3/uL 2.0 MONOCYTES, ABSOLUTE 0.0 - 0.7 10*3/uL 0.5 ABSOLUTE EOSINOPHIL COUNT 0.0 - 0.7 10*3/uL 0.4 ABSOLUTE BASOPHIL COUNT 0.0 - 0.2 10*3/uL 0.2 Resulting Agency [facility] - [address] - [place] Specimen Collected: 06/30/23 3:06 PM Performed by: [facility] - [address] - [place] Last Resulted: 06/30/23 3:26 PM Assessment: (D50.0) Iron deficiency anemia due to chronic blood loss (primary encounter diagnosis) Plan: CBC and iron stores remain steady to mild improvement. She will get Ferrex 150 and take on days of her menstrual cycle. 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 Total Time Spent: 5 minutes Kathi Clarke APRN.CNP (NOTE: A voice recognition system was used to dictate this note and as such there may be uncorrected errors in grammar, punctuation, pronoun use, etc. Please disregard these and call us with any questions.) documented in this encounter [facility] 06-07-2023 Note HNO ID: [id number] Author: Kathi Clarke APRN.CNP Service: ? Author Type: Nurse Practitioner Type: Progress Notes Filed: 06/07/2023 6:22 PM Note Text: [facility] VISIT This visit is a Virtual MyChart video visit encounter which required patient-provider interaction for the medical decision making as documented below. Persons Present: patient I have communicated my name and active licensure. The patient?s identity and physical location were verified at the time of this visit. Lulu Buchanan or their legal freight representative has been informed of the risks and benefits of -- and alternatives to -- treatment through a remote evaluation and consents to proceed with the evaluation remotely. Total Time Spent: 16 minutes on this telephone encounter HISTORY REVIEWED (electronic chart updated): - medical history - medications - allergies - tests: labs CURRENT STATUS: Today is a video visit to review repeat labs. Her last infusion of Monoferric was on 08/09/2022. She has been intolerant to oral iron as it causes significant GI distress and constipation and nausea. 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 Data Reviewed: Most recent labs REVIEW OF SYSTEMS: GENERAL: feeling well without fatigue, no recent change in weight, activity level is normal RESPIRATORY: no cough, no wheezing or shortness of breath CARDIOVASCULAR: no chest pain, no palpitations, no leg swelling OUTDOOR ADVENTURE INSTRUCTOR: denies abnormal vaginal bleeding, no vaginal discharge, no breast mass/tenderness, menstrual periods are described as: LMP 05/22/2023 lasting 5 days; 3-4 are heavy HEMATOLOGY/LYMPHOLOGY: no swollen lymph nodes VIDEO PHYSICAL EXAMINATION: (if done, performed via video enabled technology) GENERAL: alert and appropriate, in no distress, well-hydrated, well nourished, and happy, smiling, interactive RESPIRATORY: breathing non-labored NEUROLOGIC: no obvious deficit ASSESSMENT: Iron deficiency anemia. PLAN: She has been intolerant to oral iron preparations. She has heavy menstrual cycles every 28 days. Her iron and saturation and hemoglobin remained stable however her ferritin level has significantly declined. Her last IV iron infusion was on 08/09/2022. Reviewed different supplements of iron. She will try taking Ferrex 150 only on the days she is having her menstrual flow. We will recheck her labs 2 weeks after her next cycle. If she continues to decline we will redose her with IV iron. I will have a follow-up visit with her for the results. Kathi Clarke APRN.PAINT TECHNICIAN (NOTE: A voice recognition system was used to dictate this note and as such there may be uncorrected errors in grammar, punctuation, pronoun use, etc. Please disregard these and call us with any questions.) [facility] 06-07-2023 History of Present illness Narrative [facility] VISIT This visit is a Virtual [facility] video visit encounter which required patient-provider interaction for the medical decision making as documented below. Persons Present: patient I have communicated my name and active licensure. The patient s identity and physical location were verified at the time of this visit. Lulu Buchanan or their legal freight representative has been informed of the risks and benefits of -- and alternatives to -- treatment through a remote evaluation and consents to proceed with the evaluation remotely. Total Time Spent: 16 minutes on this telephone encounter HISTORY REVIEWED (electronic chart updated): - medical history - medications - allergies - tests: labs CURRENT STATUS: Today is a video visit to review repeat labs. Her last infusion of Monoferric was on 08/09/2022. She has been intolerant to oral iron as it causes significant GI distress and constipation and nausea. 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 Data Reviewed: Most recent labs REVIEW OF SYSTEMS: GENERAL: feeling well without fatigue, no recent change in weight, activity level is normal RESPIRATORY: no cough, no wheezing or shortness of breath CARDIOVASCULAR: no chest pain, no palpitations, no leg swelling OUTDOOR ADVENTURE INSTRUCTOR: denies abnormal vaginal bleeding, no vaginal discharge, no breast mass/tenderness, menstrual periods are described as: LMP 05/22/2023 lasting 5 days; 3-4 are heavy HEMATOLOGY/LYMPHOLOGY: no swollen lymph nodes VIDEO PHYSICAL EXAMINATION: (if done, performed via video enabled technology) GENERAL: alert and appropriate, in no distress, well-hydrated, well nourished, and happy, smiling, interactive RESPIRATORY: breathing non-labored NEUROLOGIC: no obvious deficit ASSESSMENT: Iron deficiency anemia. PLAN: She has been intolerant to oral iron preparations. She has heavy menstrual cycles every 28 days. Her iron and saturation and hemoglobin remained stable however her ferritin level has significantly declined. Her last IV iron infusion was on 08/09/2022. Reviewed different supplements of iron. She will try taking Ferrex 150 only on the days she is having her menstrual flow. We will recheck her labs 2 weeks after her next cycle. If she continues to decline we will redose her with IV iron. I will have a follow-up visit with her for the results. Kathi Clarke APRN.PERRY (NOTE: A voice recognition system was used to dictate this note and as such there may be uncorrected errors in grammar, punctuation, pronoun use, etc. Please disregard these and call us with any questions.) documented in this encounter [facility] 01-21-2023 History of Present illness Narrative Images from the original note were not included. Patient Name: [facility] Location: [place] [id number] [facility] [id number] Date Of : Date Of Visit: 1990 01/21/2023 MRN# Provider: [id number] Tenisha Joseph PA-C Chief Complaint Patient presents with Toe Injury Door ripped toenail up today at [facility] Assessment & Plan 1. Avulsion of toenail, initial encounter No follow-ups on file. Medical Decision Making She has a mild nail avulsion injury to the right second toe. I feel that most of the nail is still secured to the nailbed. I am going to cover her with cephalexin 500 mg 3 times daily for 5 days just to make sure this does not get infected. We did go ahead and soak this in some cleaning solution before redressing. She will continue to apply a Band-Aid with some antibiotic ointment over the next 1 to 2 weeks as needed. We also updated her Tdap today. Subjective 32 y.o. female presents with Toe Injury (Door ripped toenail up today at [facility] ) About 1 hour ago she was at the [facility] in [place] and somebody pushed the fence gate backwards and it hit her right second toenail, pulling it up. She had bleeding. Bleeding has stopped but she still is having pain. Review Of Systems Review of Systems Constitutional: Negative for chills, fatigue and fever. HENT: Negative for congestion, ear pain, postnasal drip, rhinorrhea, sinus pressure and sore throat. Eyes: Negative for redness. Respiratory: Negative for cough and shortness of breath. Cardiovascular: Negative for chest pain. Gastrointestinal: Negative for abdominal pain, constipation, diarrhea, nausea and vomiting. Genitourinary: Negative for dysuria and frequency. Musculoskeletal: Negative for arthralgias. Skin: Negative for rash. Neurological: Negative for dizziness and headaches. Medical History Past Medical History: Diagnosis Date Anemia Asthma History of blood transfusion 2016 Preeclampsia Past Surgical History: Procedure Laterality Date SECTION 05/20/2016 COLONOSCOPY N/A 12/10/2020 Procedure: COLONOSCOPY WITH BIOPSY; Surgeon: Nya Fajardo MD; Location: Main OR; Service: General Surgery EGD N/A 12/10/2020 Procedure: ESOPHAGOGASTRODUODENOSCOPY WITH BIOPSY; Surgeon: Nya Fajardo MD; Location: Main OR; Service: General Surgery Patient Active Problem List Diagnosis Iron deficiency anemia Change in bowel habits Mucus in stool Bright red blood per rectum Social History Social History Tobacco Use Smoking status: Never Smokeless tobacco: Never Vaping Use Vaping Use: Never used Substance Use Topics Alcohol use: No Drug use: No Family History Family History Problem Relation Age of Onset Heart disease Mother Colon polyps Father Lymphoma Paternal Aunt Cancer Paternal Grandmother history of MM Lymphoma Paternal Grandmother Objective Physical Exam BP 130/87 Pulse 73 Temp 98.9 F (37.2 C) Resp 16 Wt 60.5 kg (133 lb 6.4 oz) SpO2 96% BMI 22.90 kg/m Vision/Hearing Exam:No results found. Physical Exam Skin: Comments: Examination of the right second toe shows some bleeding underneath the distal nail fold. She has pain on palpation of this area but the nail itself seems fairly secure. Procedure Notes Procedures Results No results found for this or any previous visit (from the past 168 hour(s)). No orders to display Orders Placed This Visit Orders Placed This Encounter Procedures Tdap vaccine greater than or equal to 7yo IM Medication List At End Of Visit Current Outpatient Medications Medication Sig Dispense Refill glycopyrronium tosylate (Qbrexza) Towl cloth Apply 1 application topically nightly . 30 each 5 albuterol (Proventil HFA) 90 mcg/actuation inhaler Inhale 2 (two) puffs every 4 (four) hours as needed for wheezing or shortness of breath . 18 g 0 cephALEXin (KEFLEX) 500 MG capsule Take 1 (one) capsule (500 mg total) by mouth 3 (three) times a day for 5 days . 15 capsule 0 diptheria, tetanus toxoid, acellular pertusssis (ADACEL) 2 Lf-(2.5-5-3-5 mcg)-5Lf/0.5 mL injection Sign this order in conjunction with the immunization order to satisfy [place] Board of Pharmacy Positive ID requirements for immunization orders . 1 mL 0 No current facility-administered medications for this visit. There are no Patient Instructions on file for this visit. documented in this encounter [facility] 12-14-2022 History of Present illness Narrative Images from the original note were not included. HISTORY OF PRESENT ILLNESS Chief Complaint Patient presents with Annual Exam School [facility] Lulu Buchanan is here for a routine physical exam for her [employer] school. She will need paperwork completed. She is fasting. CBC two weeks ago wnl (follows with lacing operator for chronic CHARLIE). She denies any current issues. Weight: denies Diet: no special diet Exercise: stays active; four kids Caffeine: 2-3 cups Water: about 1/2 gallon to 1 gallon Alcohol: none Nicotine: none Drugs: none Safe: yes Suicidal: none Eyes: utd- [facility] Dentist: utd Sleep: sleeps well Primary Care Provider: Specialists: Dr Dixon- obgyn Dr Cheung- hematology Dr Esquivel- derm Dr Jarquin- GI Immunization status: up to date and documented Health Maintenance Topic Date Due Pap Smear 10/17/2021 Hepatitis C Screening 12/15/2023 (Originally 2007) COVID-19 Vaccine (1) 12/15/2023 (Originally 1989) Depression Screening (PHQ-2/9) 04/05/2023 Sequential Influenza Vaccine (Season Ended) 2023 Wellness Visit 12/15/2023 Tetanus: Every 10yrs 01/29/2029 HIV Screening Completed Pneumococcal Vaccine: Ped or At-Risk Aged Out Patient Active Problem List Diagnosis Iron deficiency anemia Change in bowel habits Mucus in stool Bright red blood per rectum Past Medical History: Diagnosis Date Anemia Asthma History of blood transfusion 2016 Preeclampsia No Known Allergies Current Outpatient Medications: glycopyrronium tosylate (Qbrexza) Towl cloth, Apply 1 application topically nightly ., Disp: 30 each, Rfl: 5 albuterol (Proventil HFA) 90 mcg/actuation inhaler, Inhale 2 (two) puffs every 4 (four) hours as needed for wheezing or shortness of breath ., Disp: 18 g, Rfl: 0 Past Surgical History: Procedure Laterality Date SECTION 05/20/2016 COLONOSCOPY N/A 12/10/2020 Procedure: COLONOSCOPY WITH BIOPSY; Surgeon: Nya Fajardo MD; Location: Main OR; Service: General Surgery EGD N/A 12/10/2020 Procedure: ESOPHAGOGASTRODUODENOSCOPY WITH BIOPSY; Surgeon: Nya Fajardo MD; Location: Main OR; Service: General Surgery Family History Problem Relation Age of Onset Heart disease Mother Colon polyps Father Lymphoma Paternal Aunt Cancer Paternal Grandmother history of MM Lymphoma Paternal Grandmother Social History Socioeconomic History Marital status: Tobacco Use Smoking status: Never Smokeless tobacco: Never Vaping Use Vaping status: Never Used Substance and Sexual Activity Alcohol use: No Drug use: No Social Determinants of Health Financial Resource Strain: Low Risk (04/05/2022) Overall Financial Resource Strain (CARDIA) Difficulty of Paying Living Expenses: Not hard at all Food Insecurity: No Food Insecurity (04/05/2022) Hunger Vital Sign Worried About Running Out of Food in the Last Year: Never true Ran Out of Food in the Last Year: Never true Transportation Needs: No Transportation Needs (04/05/2022) PRAPARE - Transportation Lack of Transportation (Medical): No Lack of Transportation (Non-Medical): No Social Connections: Unknown (04/05/2022) Social Connection and Isolation Panel [NHANES] Active Member of Clubs or Organizations: No Attends Club or Organization Meetings: Never MENSTRUAL/BREAST/OBSTETRIC HISTORY LMP Contraception: vasectomy Menstrual History: normal 3SAB LABS Results for orders placed or performed in visit on 12/02/22 Urine culture Specimen: Urine, Clean Catch Result Value Ref Range Culture > 10,000 CFU/mL mixture of normal urogenital microbiota POC Urinalysis Dipstick,Auto UC Result Value Ref Range POC Color, Urine Yellow Yellow, Light Yellow, Dark Yellow Clarity, UA Clear Clear Glucose, UA Negative Normal, Negative mg/dL Bilirubin, UA Negative Negative Ketones, UA Trace (A) Negative mg/dL Spec Grav, UA 1.010 1.005 - 1.025 Blood, UA Trace-intact (A) Negative pH, UA 6.0 5.0 - 7.0 Protein, UA Negative Negative mg/dL Urobilinogen, UA 0.2 <2.0, 0.2, Normal, Negative, 1.0, 2.0, <1.0 mg/dL Nitrite, UA Negative Negative Leukocyte Esterase, UA Small (A) Negative POC , Urine Result Value Ref Range POC Preg Test, Ur Negative Negative Internal Control Pass Review of Systems Constitutional: Negative for activity change, appetite change, chills, diaphoresis, fatigue, fever and unexpected weight change. HENT: Negative for congestion, rhinorrhea, sinus pressure, sinus pain and sore throat. Eyes: Negative for visual disturbance. Respiratory: Negative for cough, chest tightness and shortness of breath. Cardiovascular: Negative for chest pain, palpitations and leg swelling. Gastrointestinal: Negative for abdominal pain, blood in stool, constipation, diarrhea, nausea and vomiting. Endocrine: Negative for cold intolerance and heat intolerance. Genitourinary: Negative for difficulty urinating, hematuria and menstrual problem. Musculoskeletal: Negative for arthralgias and myalgias. Skin: Negative for pallor and rash. Neurological: Negative for dizziness, weakness, light-headedness, numbness and headaches. Hematological: Negative for adenopathy. Psychiatric/Behavioral: Negative for sleep disturbance and suicidal ideas. The patient is not nervous/anxious. Physical Exam Vitals reviewed. Constitutional: General: She is not in acute distress. Appearance: Normal appearance. HENT: Head: Normocephalic and atraumatic. Right Ear: Tympanic membrane, ear canal and external ear normal. There is no impacted cerumen. Left Ear: Tympanic membrane, ear canal and external ear normal. There is no impacted cerumen. Nose: Nose normal. No congestion. Mouth/Throat: Mouth: Mucous membranes are moist. Pharynx: No oropharyngeal exudate or posterior oropharyngeal erythema. Eyes: General: Right eye: No discharge. Left eye: No discharge. Conjunctiva/sclera: Conjunctivae normal. Pupils: Pupils are equal, round, and reactive to light. Comments: Fundoscopic exam without abnormality Neck: Vascular: No carotid bruit. Comments: Thyroid palpable without nodules, mobile with swallowing Cardiovascular: Rate and Rhythm: Normal rate and regular rhythm. Pulses: Normal pulses. Heart sounds: Normal heart sounds. No murmur heard. Pulmonary: Effort: Pulmonary effort is normal. No respiratory distress. Breath sounds: Normal breath sounds. No stridor. No wheezing or rhonchi. Abdominal: General: Bowel sounds are normal. There is no distension. Palpations: Abdomen is soft. There is no mass. Tenderness: There is no abdominal tenderness. Hernia: No hernia is present. Genitourinary: Comments: Follows with ob Musculoskeletal: General: No swelling. Normal range of motion. Cervical back: Normal range of motion. Right lower leg: No edema. Left lower leg: No edema. Lymphadenopathy: Cervical: No cervical adenopathy. Skin: General: Skin is warm and dry. Capillary Refill: Capillary refill takes less than 2 seconds. Findings: No rash. Neurological: General: No focal deficit present. Mental Status: She is alert and oriented to person, place, and time. Gait: Gait normal. Deep Tendon Reflexes: Reflexes normal. Psychiatric: Mood and Affect: Mood normal. Behavior: Behavior normal. Thought Content: Thought content normal. Judgment: Judgment normal. Vitals: 12/14/22 1115 BP: 110/71 Pulse: 71 Resp: 16 Temp: 97.8 F (36.6 C) TempSrc: Infrared Weight: 60.3 kg (133 lb) Height: 5' 4 Wt Readings from Last 3 Encounters: 12/14/22 60.3 kg (133 lb) 12/02/22 62.5 kg (137 lb 11.2 oz) 11/30/22 60.8 kg (134 lb) Body mass index is 22.83 kg/m . PLAN: Lulu Buchanan was seen today for routine physical. We discussed the following: ICD-10-CM ICD-9-CM 1. Wellness examination Z00.00 V70.0 Comprehensive Metabolic Panel TSH with Reflex Free T4 Lipid Panel 2. Iron deficiency anemia, unspecified iron deficiency anemia type D50.9 280.9 Filled out pt's paperwork for school . Pt to get blood work completed for wellness. Follow up annually Continue current medications, noting exceptions as mentioned above. The patient indicates understanding of these issues and agrees with the plan. An After Visit Summary was printed and given to the patient. Electronically Signed by: SIRISHA Reddy 12/14/22 documented in this encounter [facility] 12-07-2022 Note HNO ID: [id number] Author: Kathi Clarke APRN.PERRY Service: ? Author Type: Nurse Practitioner Type: Progress Notes Filed: 12/07/2022 5:10 PM Note Text: HISTORY OF PRESENT ILLNESS: Lulu Buchanan is a 32-year-old female comes here for follow-up for iron deficiency anemia. She has body aches with fever and fatigue for >2 weeks, evaluated by her PCP on 08/25/2020, some lab evaluation as follows: CMP panel unremarkable, creatinine 0.92, LFT CBC: WBC 6.5, Hb 10.3, MCV 71.1, PLT 338, differential normal Sed rate elevated at 22, CRP normal, TSH normal 0.94 EBV antibody profile negative for IgM, positive for IgG and nuclear Ag/Ab She has a history of anemia, CBC on 03/20/2019 showed WBC 12.6, Hb 8.3, MCV 77.5, platelet 340. Absolute neutrophil was elevated at 8.2. Another CBC on 03/15/2019 showed WBC 13.9, hemoglobin 10, MCV 75.4, platelet 242. Another CBC from 03/13/2019 showed hemoglobin of 10.5. CBC from 01/29/2019 showed hemoglobin 10.6. CBC from 01/01/2019 showed hemoglobin of 11, MCV 80.4. CBC from 12/19/2018 showed hemoglobin 11.6 and finally she had a CBC on 11/06/2018 which showed normal WBC at 8.5, normal hemoglobin at 12, MCV low at 78.8, platelet normal at 249. According to her she has history of preeclampsia with her all 4 pregnancies and had anemia during , she had blood transfusion in April 2016, hemoglobin was 7.8 in February 2019 after delivery due to needing. She was taking ferrous gluconate 325 mg daily, also on liquid iron [id number] supplement daily she has intolerance, said it is hard on the stomach, she has nausea with oral iron. Earlier she denied heavy menstruation, she had IUD, after she received Injectafer here, according to her she started the heavy menstruation lasting for 7 days and also had spotting in the rectum area with bright red blood frequently. She had a EGD and colonoscopy on 12/10/2020 which was normal, surgical pathology from antrum biopsy showed gastric oxyntic mucosa with no significant pathologic changes, negative for H. pylori, EGD biopsy showed esophageal squamous mucosa with reactive changes and increased eosinophils, mildly inflamed gastric cardia fundic type mucosa, no evidence of intestinal metaplasia or dysplasia, terminal ileum biopsy showed a small bowel mucosa with no significant pathologic changes. CURRENT STATUS: She presents today for a 4-month follow-up visit and discussion of repeat labs. She reports that since her iron infusion of Monoferric on 08/09/2022 her menstrual cycles have been very light. This month she was 2 weeks late and had 2 negative tests. She then started her period on 12/03. She reports improvement in her fatigue. 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 She has 4 children and her recently had a vasectomy. She has tried multiple lines of control herself most of which have led to heavy menstrual flow. She no longer takes oral iron supplements as they were causing too much constipation. She denies any blood in her urine or bowel movements. She remains quite active. ECOG PERFORMANCE STATUS: 0- Fully active, able to carry on all pre-disease performance w/o restriction. Blood pressure 126/83, pulse 76, temperature 36.8 ?C (98.2 ?F), resp. rate 16, weight 61.3 kg (135 lb 1.6 oz), last menstrual period 12/03/2022, SpO2 99 %. PHYSICAL EXAM: CONSTITUTIONAL: Awake, alert, oriented. No acute distress. HEAD (Incl. face): Normocephalic; Atraumatic. EYES: Pupils are reactive. No icterus. HEMATOLOGY/LYMPHATIC: No cervical adenopathy. RESPIRATORY: Lungs are clear to auscultation. CARDIOVASCULAR: Regular rate and rhythm. No murmur or gallop. ABDOMEN: Non-tender, soft, no organomegaly. EXTREMITIES: No edema INTEGUMENTARY: No rashes. NEURO: No sensory or motor deficits, normal cerebellar function, normal gait. PSYCHIATRIC: Pleasant affect. No signs of agitation. LABS: Component Latest Ref Rng AND Units 11/30/2022 WBC 3.70 - 11.00 k/uL 6.12 RBC 3.90 - 5.20 m/uL 4.57 Hemoglobin 11.5 - 15.5 g/dL 13.5 Hematocrit 36.0 - 46.0 % 40.8 MCV 80.0 - 100.0 fL 89.3 MCH 26.0 - 34.0 pg 29.5 MCHC 30.5 - 36.0 g/dL 33.1 RDW-CV 11.5 - 15.0 % 12.2 Platelet Count 150 - 400 k/uL 242 MPV 9.0 - 12.7 fL 10.2 Neut% % 63.1 Abs Neut (ANC) 1.45 - 7.50 k/uL 3.86 Lymph% % 24.7 Abs Lymph 1.00 - 4.00 k/uL 1.51 Salem% % 6.5 Abs Salem <0.87 k/uL 0.40 Eosin% % 4.4 Abs Eosin <0.46 k/uL 0.27 Baso% % 1.1 Abs Baso <0.11 k/uL 0.07 Immature Gran % % 0.2 IMMATURE GRANS (ABS) <0.10 k/uL <0.03 NRBC /100 WBC 0.0 Absolute nRBC <0.01 k/uL <0.01 DTYPE Auto Iron 41 - 186 ug/dL 63 TIBC 232 - 386 ug/dL 311 Transferrin Saturation 15.0 - 57.0 % 20.3 Ferritin 14.7 - 205.1 ng/mL 268.0 (H) Lab on 07/12/2022: WBC 5.9, hemoglobin 13.4, platelet 254 Ferritin 39, iron saturation 24%, TIBC 398, iron 97 Lab on 01/26/2022: Ferritin 126, iron saturation 32%, T (more content not included)... [facility] 12-02-2022 Instructions Catina Khan CNP - 12/02/2022 7:51 PM EDT Treating for UTI with a 7 day course of Cephalexin. Continue to drink lots of clear fluids and empty your bladder frequently. Have your urine rechecked in 1 week. Urine negative. The following attachments cannot be sent through Care Everywhere.UTI (Urinary Tract Infection): Female (Romanian)documented in this encounter [facility] 12-02-2022 History of Present illness Narrative Images from the original note were not included. Patient Name: [facility] Location: [place] [address] [facility] [id number] Date Of : Date Of Visit: 1990 12/02/2022 MRN# Provider: [id number] Catina Khan CNP Chief Complaint Patient presents with Urinary Tract Infection Urinary frequency, pungent odor started today, would like preg test too Assessment & Plan 1. Dysuria POC Urinalysis Dipstick,Auto UC 2. Possible POC , Urine 3. Cystitis No follow-ups on file. Medical Decision Making UA reveals leuks, blood and trace ketones. Considering her progressive symptoms and trajectory, she will be treated with a course of cephalexin. Urine culture is pending and pt is aware. Increased fluids were encouraged, as well as following up with her PCP in 1 week to have her urine retested. Urine preg done and is negative. Additional Clinical Comments Treating for UTI with a 7 day course of Cephalexin. Continue to drink lots of clear fluids and empty your bladder frequently. Have your urine rechecked in 1 week. Urine negative. Subjective 32 y.o. female presents with Urinary Tract Infection (Urinary frequency, pungent odor started today, would like preg test too) Patient in concerned for UTI and possible as she is 2 weeks late for her menses. She saw her PCP 2 days ago for concerns for a UTI and the in office UA was not consistent for infection. She was told to return to the office or go to if symptoms increase. She c/o frequency with mild urgency. Denies flank pain, fever abdominal pain or hematuria. Urinary Tract Infection This is a new problem. The current episode started in the past 7 days. The problem occurs every urination. The problem has been gradually worsening. The quality of the pain is described as aching. The pain is at a severity of 3/10. The pain is mild. There has been no fever. She is Sexually active. There is No history of pyelonephritis. Associated symptoms include frequency, a possible and urgency. Pertinent negatives include no chills, discharge, flank pain, hematuria, hesitancy, nausea, sweats or vomiting. She has tried increased fluids for the symptoms. The treatment provided no relief. There is no history of catheterization, kidney stones, recurrent UTIs, a single kidney, urinary stasis or a urological procedure. Review Of Systems Review of Systems Constitutional: Negative for chills, diaphoresis and fever. Gastrointestinal: Negative for abdominal pain, diarrhea, nausea and vomiting. Genitourinary: Positive for frequency and urgency. Negative for dysuria, flank pain, hematuria and hesitancy. Musculoskeletal: Negative for back pain. Neurological: Negative for headaches. Psychiatric/Behavioral: Negative for confusion. All other systems reviewed and are negative. Medical History Past Medical History: Diagnosis Date Anemia Asthma History of blood transfusion 2016 Preeclampsia Past Surgical History: Procedure Laterality Date SECTION 05/20/2016 COLONOSCOPY N/A 12/10/2020 Procedure: COLONOSCOPY WITH BIOPSY; Surgeon: Nya Fajardo MD; Location: Main OR; Service: General Surgery EGD N/A 12/10/2020 Procedure: ESOPHAGOGASTRODUODENOSCOPY WITH BIOPSY; Surgeon: Nya Fajardo MD; Location: Main OR; Service: General Surgery Patient Active Problem List Diagnosis Iron deficiency anemia Change in bowel habits Mucus in stool Bright red blood per rectum Social History Social History Tobacco Use Smoking status: Never Smokeless tobacco: Never Vaping Use Vaping status: Never Used Substance Use Topics Alcohol use: No Drug use: No Family History Family History Problem Relation Age of Onset Heart disease Mother Colon polyps Father Lymphoma Paternal Aunt Cancer Paternal Grandmother history of MM Lymphoma Paternal Grandmother Objective Physical Exam BP (!) 138/95 Pulse 77 Temp 99.4 F (37.4 C) Resp 17 Ht 5' 4 Wt 62.5 kg (137 lb 11.2 oz) LMP 10/17/2022 Comment: 2 weeks late SpO2 98% BMI 23.64 kg/m Vision/Hearing Exam:No results found. Physical Exam Vitals and nursing note reviewed. Constitutional: General: She is not in acute distress. Appearance: Normal appearance. She is well-developed. She is not ill-appearing, toxic-appearing or diaphoretic. HENT: Head: Normocephalic and atraumatic. Mouth/Throat: Mouth: Mucous membranes are moist. Eyes: Extraocular Movements: Extraocular movements intact. Conjunctiva/sclera: Conjunctivae normal. Cardiovascular: Rate and Rhythm: Normal rate and regular rhythm. Pulses: Normal pulses. Pulmonary: Effort: Pulmonary effort is normal. Abdominal: General: Bowel sounds are normal. There is no distension. Palpations: Abdomen is soft. Tenderness: There is no abdominal tenderness. There is no right CVA tenderness, left CVA tenderness or guarding. Musculoskeletal: General: Normal range of motion. Skin: General: Skin is warm and dry. Neurological: Mental Status: She is alert and oriented to person, place, and time. Psychiatric: Mood and Affect: Mood normal. Procedure Notes Procedures Results Recent Results (from the past 168 hour(s)) POC Urinalysis Dipstick Collection Time: 11/30/22 3:40 PM Result Value Ref Range Spec Grav, UA 1.005 1.005 - 1.025 pH, UA 7.0 5.0 - 7.0 Protein, UA Negative Negative mg/dL Glucose, UA Negative Normal, Negative mg/dL Ketones, UA Negative Negative mg/dL Bilirubin, UA Negative Negative Urobilinogen, UA <2.0 <2.0, 0.2, Normal, Negative, 1.0, 2.0, <1.0 mg/dL Blood, UA Negative Negative Nitrite, UA Negative Negative Leukocyte Esterase, UA Trace (A) Negative POC , Urine Collection Time: 11/30/22 3:41 PM Result Value Ref Range POC Preg Test, Ur Negative Negative Internal Control Pass POC Urinalysis Dipstick,Auto UC Collection Time: 12/02/22 7:43 PM Result Value Ref Range POC Color, Urine Yellow Yellow, Light Yellow, Dark Yellow Clarity, UA Clear Clear Glucose, UA Negative Normal, Negative mg/dL Bilirubin, UA Negative Negative Ketones, UA Trace (A) Negative mg/dL Spec Grav, UA 1.010 1.005 - 1.025 Blood, UA Trace-intact (A) Negative pH, UA 6.0 5.0 - 7.0 Protein, UA Negative Negative mg/dL Urobilinogen, UA 0.2 <2.0, 0.2, Normal, Negative, 1.0, 2.0, <1.0 mg/dL Nitrite, UA Negative Negative Leukocyte Esterase, UA Small (A) Negative POC , Urine Collection Time: 12/02/22 7:48 PM Result Value Ref Range POC Preg Test, Ur Negative Negative Internal Control Pass No orders to display Orders Placed This Visit Orders Placed This Encounter Procedures POC Urinalysis Dipstick,Auto UC POC , Urine Medication List At End Of Visit Current Outpatient Medications Medication Sig Dispense Refill glycopyrronium tosylate (Qbrexza) Towl cloth Apply 1 application topically nightly . 30 each 5 albuterol (Proventil HFA) 90 mcg/actuation inhaler Inhale 2 (two) puffs every 4 (four) hours as needed for wheezing or shortness of breath . 18 g 0 cephALEXin (KEFLEX) 500 MG capsule Take 1 (one) capsule (500 mg total) by mouth 2 (two) times a day for 7 days . 14 capsule 0 No current facility-administered medications for this visit. There are no Patient Instructions on file for this visit. 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 Amenorrhea Patient states her menstrual cycle is 7-10 days late. 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 She states that her urine had leukocytes. Her instructor recommended that she get tested for an asymptomatic UTI. Patient denies any fever, chills, burning/pain with urination, urgency, frequency, blood in the urine, abdominal pain/flank pain. Patient denies any history of UTIs or kidney stones. Irregular Menstruation Patient complains of missed menses. LMP 10/20/2022. Periods are regular every 28-30 days but hx of irregular menses. Dysmenorrhea:none. Cyclic symptoms include: none. Current contraception: condoms. History of infertility: no. History of abnormal Pap smear: no. Pt reports she had the Paraguard removed and her had a vasectomy but they are using condoms as form of contraception. Past Medical History: Diagnosis Date Anemia Asthma History of blood transfusion 2015 Preeclampsia Past Surgical History: Procedure Laterality Date SECTION 05/20/2016 COLONOSCOPY N/A 12/10/2020 Procedure: COLONOSCOPY WITH BIOPSY; Surgeon: Nya Fajardo MD; Location: [facility] OR; Service: General Surgery EGD N/A 12/10/2020 Procedure: ESOPHAGOGASTRODUODENOSCOPY WITH BIOPSY; Surgeon: Nya Fajardo MD; Location: Main OR; Service: General Surgery Current Outpatient Medications: glycopyrronium tosylate (Qbrexza) Towl cloth, Apply 1 application topically nightly ., Disp: 30 each, Rfl: 5 albuterol (Proventil HFA) 90 mcg/actuation inhaler, Inhale 2 (two) puffs every 4 (four) hours as needed for wheezing or shortness of breath ., Disp: 18 g, Rfl: 0 Objective PACU Vitals 11/30/22 1530 BP: 119/74 Pulse: 79 Temp: 97.7 F (36.5 C) Review of Systems Constitutional: Negative. Gastrointestinal: Negative. Genitourinary: See HPI Physical Exam Vitals and nursing note reviewed. Constitutional: Appearance: Normal appearance. Eyes: Pupils: Pupils are equal, round, and reactive to light. Cardiovascular: Rate and Rhythm: Normal rate and regular rhythm. Pulses: Normal pulses. Heart sounds: Normal heart sounds. Pulmonary: Effort: Pulmonary effort is normal. Breath sounds: Normal breath sounds. Abdominal: General: Abdomen is flat. Bowel sounds are normal. Tenderness: There is no abdominal tenderness. There is no right CVA tenderness or left CVA tenderness. Skin: General: Skin is warm and dry. Neurological: Mental Status: She is alert and oriented to person, place, and time. Assessment and Plan: Diagnoses and all orders for this visit: UTI symptoms - POC Urinalysis Dipstick Discussed with patient that POC urine shows trace leuks otherwise normal. Discussed with patient no further treatment or evaluation is needed at this time. If patient experience any acute onset of urinary symptoms as discussed recommend returning to office for recheck and further evaluation/treatment. Advised patient drink plenty of water. Missed menses - POC , Urine Discussed with patient that POC test was negative. Discussed with patient that if she has continued missed menses that I recommend follow-up with [facility]. Vital signs stable. Ordered labs and test results will be called to patient. Treatment will be adjusted or added accordingly. Condition and plan understood by patient. Meds reviewed and reconciled. Continue meds as prescribed. For any new medications prescribed today, patient was educated about indications for the medication, how to take the medication and potential side effects of the medications. No concerns from patient at this time. Follow-up PRN. Return if symptoms worsen or fail to improve. Ame Amaya PA-C documented in this encounter [facility] 11-18-2022 Miscellaneous Notes Need for lab orders for upcoming LOVE appts with Dr Das. Yin Leung RN. documented in this encounter [facility] 08-09-2022 History of Present illness Narrative [id number] Lulu boykin [id number] documented in this encounter [facility] 07-29-2022 History of Present illness Narrative HISTORY OF PRESENT ILLNESS: Luul Buchanan is a 32-year-old female comes here for follow-up for iron deficiency anemia. She has body aches with fever and fatigue for >2 weeks, evaluated by her PCP on 08/25/2020, some lab evaluation as follows: CMP panel unremarkable, creatinine 0.92, LFT CBC: WBC 6.5, Hb 10.3, MCV 71.1, PLT 338, differential normal Sed rate elevated at 22, CRP normal, TSH normal 0.94 EBV antibody profile negative for IgM, positive for IgG and nuclear Ag/Ab She has a history of anemia, CBC on 03/20/2019 showed WBC 12.6, Hb 8.3, MCV 77.5, platelet 340. Absolute neutrophil was elevated at 8.2. Another CBC on 03/15/2019 showed WBC 13.9, hemoglobin 10, MCV 75.4, platelet 242. Another CBC from 03/13/2019 showed hemoglobin of 10.5. CBC from 01/29/2019 showed hemoglobin 10.6. CBC from 01/01/2019 showed hemoglobin of 11, MCV 80.4. CBC from 12/19/2018 showed hemoglobin 11.6 and finally she had a CBC on 11/06/2018 which showed normal WBC at 8.5, normal hemoglobin at 12, MCV low at 78.8, platelet normal at 249. According to her she has history of preeclampsia with her all 4 pregnancies and had anemia during , she had blood transfusion in April 2016, hemoglobin was 7.8 in February 2019 after delivery due to needing. She was taking ferrous gluconate 325 mg daily, also on liquid iron [id number] supplement daily she has intolerance, said it is hard on the stomach, she has nausea with oral iron. Earlier she denied heavy menstruation, she had IUD, after she received Injectafer here, according to her she started the heavy menstruation lasting for 7 days and also had spotting in the rectum area with bright red blood frequently. She had a EGD and colonoscopy on 12/10/2020 which was normal, surgical pathology from antrum biopsy showed gastric oxyntic mucosa with no significant pathologic changes, negative for H. pylori, EGD biopsy showed esophageal squamous mucosa with reactive changes and increased eosinophils, mildly inflamed gastric cardia fundic type mucosa, no evidence of intestinal metaplasia or dysplasia, terminal ileum biopsy showed a small bowel mucosa with no significant pathologic changes. CURRENT STATUS: She is here for follow-up, doing well, continues to have fatigue, currently taking 2 tablet of oral iron which is causing constipation, her menstruation continues to be on heavy site lasting for 5-6 days. She denies any melena. ECOG PERFORMANCE STATUS: 0- Fully active, able to carry on all pre-disease performance w/o restriction. Blood pressure 130/88, pulse 73, temperature 36.8 C (98.2 F), resp. rate 16, weight 61.7 kg (136 lb), last menstrual period 11/20/2020, SpO2 100 %. PHYSICAL EXAM: CONSTITUTIONAL: Awake, alert, oriented. No acute distress. HEAD (Incl. face): Normocephalic; Atraumatic. EYES: Pupils are reactive. No icterus. THROAT: No oral exudates. NECK: No thyromegaly. No JVD. HEMATOLOGY/LYMPHATIC: No cervical adenopathy. RESPIRATORY: Lungs are clear to auscultation. CARDIOVASCULAR: Regular rate and rhythm. No murmur or gallop. ABDOMEN: Non-tender, soft, no organomegaly. EXTREMITIES: No edema INTEGUMENTARY: No rashes. NEURO: No sensory or motor deficits, normal cerebellar function, normal gait. PSYCHIATRIC: Pleasant affect. No signs of agitation. LABS: Lab on 07/12/2022: WBC 5.9, hemoglobin 13.4, platelet 254 Ferritin 39, iron saturation 24%, TIBC 398, iron 97 Lab on 01/26/2022: Ferritin 126, iron saturation 32%, TIBC 339, iron 108 WBC 8.7, hemoglobin 14.3, platelet 241 Lab on 06/25/2021: Ferritin 11, iron saturation 24%, TIBC 374, iron 88 WBC 5.5, hemoglobin 14.1, MCV 85.7, platelet 241. Lab on 02/10/2021: Ferritin 5.6, Iron saturation 6%, TIBC 518, iron 30 WBC 5.6, hemoglobin 10.7, MCV 70, platelet 288 Lab on 11/16/2020: Ferritin 108, iron saturation 33%, TIBC 312, iron 104 WBC 5.4, hemoglobin 12.9, MCV 81.4, platelet 221. Lab on 09/09/2020: Ferritin 5.6, iron saturation 6%, TIBC 518, iron 30, absolute reticulocyte normal, hemoglobin 10.7, MCV 70, WBC 5.6, platelet 288 ASSESSMENT/PLAN: History of iron deficiency anemia secondary to heavy menstruation. Baseline ferritin 5.6 and iron saturation 6% on 09/09/2020 She underwent EGD and colonoscopy which was unremarkable. -s/p Injectafer on 09/22/2020. -s/p Monoferric on 11/13/2021. Repeat lab reviewed, iron studies and hemoglobin normal but trending down, oral iron causing constipation. She continues to have heavy menstruation, will plan to give her 1 course of Monoferric next week, repeat labs in 4 months, follow-up with Dr. Logan then. Lucy Cheung MD CC: Dionte Hoffman Elements copied from previous note, have been reviewed and updated where appropriate, and all reflect current assessment and plan. Note: This dictation was generated using [employer] voice recognition software. Please excuse any grammatical or spelling errors that may have occurred using the system Orders Placed This Encounter CBC 4M Standing Status: Future Standing Expiration Date: 01/27/2023 Ferritin in 4 months Standing Status: Future Standing Expiration Date: 01/26/2023 iron+TIBC(4 months) Standing Status: Future Standing Expiration Date: 01/27/2023 glycopyrronium tosylate (QBREXZA) 2.4 % Sig: Apply 1 application to affected area. documented in this encounter [facility] 07-27-2022 History of Present illness Narrative Appointment notes faxed to referring PCP. documented in this encounter [facility] 04-23-2022 History of Present illness Narrative Per Dr. Curtis , he okayed the referral for dermatology. documented in this encounter [facility] 04-05-2022 History of Present illness Narrative Subjective Pt here today for diarrhea and emesis x6 days with cough. States low energy, dehydrated, unable to keep any solids down. Patient ID: Lulu Buchanan is a 32 y.o. female. HPI Review of Systems Constitutional: Positive for appetite change. Negative for fever. HENT: Negative for congestion. Eyes: Negative for visual disturbance. Respiratory: Positive for cough. Cardiovascular: Negative for chest pain. Gastrointestinal: Positive for abdominal pain, diarrhea, nausea and vomiting. Endocrine: Negative for polydipsia. Genitourinary: Negative for dysuria. Musculoskeletal: Negative for myalgias. Skin: Negative for rash. Allergic/Immunologic: Negative. Neurological: Positive for weakness. Hematological: Negative for adenopathy. Psychiatric/Behavioral: Negative. Objective Physical Exam Vitals and nursing note reviewed. Constitutional: Appearance: Normal appearance. She is well-developed. HENT: Head: Normocephalic and atraumatic. Right Ear: Tympanic membrane and external ear normal. Left Ear: Tympanic membrane and external ear normal. Eyes: Conjunctiva/sclera: Conjunctivae normal. Pupils: Pupils are equal, round, and reactive to light. Cardiovascular: Rate and Rhythm: Normal rate and regular rhythm. Heart sounds: Normal heart sounds. Pulmonary: Effort: Pulmonary effort is normal. Breath sounds: Normal breath sounds. No wheezing or rales. Abdominal: General: Bowel sounds are normal. Palpations: Abdomen is soft. Tenderness: There is abdominal tenderness. There is no guarding or rebound. Musculoskeletal: General: Normal range of motion. Cervical back: Normal range of motion and neck supple. Skin: General: Skin is warm and dry. Findings: No rash. Neurological: Mental Status: She is alert and oriented to person, place, and time. Deep Tendon Reflexes: Reflexes are normal and symmetric. Psychiatric: Mood and Affect: Mood normal. Behavior: Behavior normal. Thought Content: Thought content normal. Assessment/Plan: Diagnoses and all orders for this visit: Gastroenteritis Diarrhea of presumed infectious origin - CBC and Differential; Future - Comprehensive Metabolic Panel; Future - Stool/GI PCR Panel; Future Nausea and vomiting in adult - COVID-19, Molecular - CBC and Differential; Future - Comprehensive Metabolic Panel; Future - ondansetron (ZOFRAN-ODT) 4 MG disintegrating tablet; Dissolve 1 (one) tablet (4 mg total) on top of tongue every 6 (six) hours as needed for nausea (vomiting) . Cough - COVID-19, Molecular For any new medications prescribed today, patient was educated about indications for the medication, how to take the medication and potential side effects of the medications. We discussed hydration techniques with zofran. Lab work and stool tomorrow. COVID PCR test. She had negative test at home. Follow up prn. Depression Screening 04/05/2022 Little interest or pleasure in doing things 0 Feeling down, depressed, or hopeless 0 PHQ-2 Total Score 0 documented in this encounter [facility] 03-26-2022 Instructions Jade Prabhakar CNP - 03/26/2022 3:28 PM EDT If symptoms worsen you should seek evaluation at the ED. Please follow up with primary care provider in one week. You may take over the counter pain relief medication as directed on package insert. This could include alternating between Acetaminophen (Tylenol) and Ibuprofen (Motrin). Be sure to avoid doubling NSAIDS such as Ibuprofen, Aleve, and Aspirin. Take Prednisone as ordered. Do not suddenly stop medication. You should take the dose first thing in the AM, once daily. Do not take Prednisone with other NSAID's such as Ibuprofen/Aleve/Advil/Aspirin/Naproxen . We discussed course of viral illness. We also discussed that treatment for viral illness involves symptom management, as antibiotics do not treat viral infections. We also discussed good supportive care for management of symptoms. The following attachments cannot be sent through Care Everywhere.Cough (Romanian)documented in this encounter [facility] 03-26-2022 History of Present illness Narrative Images from the original note were not included. Patient Name: [facility] Location: L[place] Buchanan [address] [place] [address] Date Of : Date Of Visit: 1990 03/26/2022 MRN# Provider: [id number] Jade Prabhakar CNP Chief Complaint Patient presents with Cough 4 days. Productive cough, fever(100.5 F). No exposure. Assessment & Plan 1. Upper respiratory tract infection, unspecified type predniSONE (DELTASONE) 10 MG tablet benzonatate (TESSALON) 200 MG capsule 2. Fever, unspecified fever cause POC , Urine XR Chest AP/PA and LAT No follow-ups on file. Medical Decision Making Considered strep throat, viral pharyngitis, bronchitis, pneumonia, sinusitis, allergic rhinitis, viral URI, influenza, and COVID. Patient has no known COVID or influenza positive exposure. Patient denies any concern or risk for COVID. She declines testing today. A chest x-ray was ordered today given her report of fever and productive cough. Lungs are clear bilaterally on auscultation. The patient has unknown status and a POC test was ordered. POC was negative. Chest x-ray negative for acute infiltration. Confirmed by radiology over read. Prednisone and Tessalon were prescribed for management of viral URI. Patient encouraged to consider COVID testing if symptoms continue. The patient was advised to seek evaluation in the emergency department should symptoms acutely worsen. The patient was advised to follow up with their primary care provider within 7-14 days should symptoms fail to improve. Discussed plan of care with patient. Patient is agreeable to plan of care. Patient denies any additional questions or concerns at this time. Additional Clinical Comments Discussed over the counter medications for symptomatic management and side effects of medications. Recommended taking all medications with food and to stop medications if they develop any signs of an allergic reaction. Educated patient and/or guardian about signs and symptoms that would warrant further immediate evaluation. Recommended that they should return to urgent care, make an appointment with their family physician, or go to the emergency room if symptoms persist or get acutely worse. Recommended follow up within the next week with their PCP or to get established with a PCP soon in order to follow up appropriately. Subjective 32 y.o. female presents with Cough (4 days. Productive cough, fever(100.5 F). No exposure.) Cough This is a new problem. The current episode started in the past 7 days. The problem has been unchanged. The problem occurs constantly. The cough is Productive of sputum. Associated symptoms include chills, a fever and shortness of breath. Pertinent negatives include no chest pain, ear congestion, ear pain, headaches, heartburn, hemoptysis, myalgias, nasal congestion, postnasal drip, rash, rhinorrhea, sore throat, sweats, weight loss or wheezing. Nothing aggravates the symptoms. She has tried nothing for the symptoms. Review Of Systems Review of Systems Constitutional: Positive for chills, fatigue and fever. Negative for diaphoresis and weight loss. HENT: Negative for drooling, ear pain, hearing loss, postnasal drip, rhinorrhea, sinus pressure, sinus pain, sore throat and voice change. Eyes: Negative for visual disturbance. Respiratory: Positive for cough and shortness of breath. Negative for hemoptysis, chest tightness and wheezing. Cardiovascular: Negative for chest pain, palpitations and leg swelling. Gastrointestinal: Negative for abdominal distention, constipation, diarrhea, heartburn, nausea and vomiting. Genitourinary: Negative for difficulty urinating. Musculoskeletal: Negative for arthralgias, joint swelling and myalgias. Skin: Negative for rash. Neurological: Negative for dizziness, light-headedness and headaches. Psychiatric/Behavioral: Negative for confusion. Medical History Past Medical History: Diagnosis Date Anemia Asthma History of blood transfusion 2016 Preeclampsia Past Surgical History: Procedure Laterality Date SECTION 05/20/2016 COLONOSCOPY N/A 12/10/2020 Procedure: COLONOSCOPY WITH BIOPSY; Surgeon: Nya Fajadro MD; Location: [facility] OR; Service: General Surgery EGD N/A 12/10/2020 Procedure: ESOPHAGOGASTRODUODENOSCOPY WITH BIOPSY; Surgeon: Nya Fajardo MD; Location: [facility] OR; Service: General Surgery Patient Active Problem List Diagnosis Iron deficiency anemia Change in bowel habits Mucus in stool Bright red blood per rectum Social History Social History Tobacco Use Smoking status: Never Smokeless tobacco: Never Vaping Use Vaping Use: Never used Substance Use Topics Alcohol use: No Drug use: No Family History Family History Problem Relation Age of Onset Heart disease Mother Colon polyps Father Lymphoma Paternal Aunt Lymphoma Paternal Grandmother Objective Physical Exam BP 114/78 Pulse 90 Temp 98.7 F (37.1 C) (Tympanic) Resp 18 Wt 62.1 kg (137 lb) SpO2 97% BMI 23.52 kg/m Vision/Hearing Exam:No results found. Physical Exam Vitals and nursing note reviewed. Constitutional: Appearance: Normal appearance. She is normal weight. HENT: Head: Normocephalic. Right Ear: Hearing, tympanic membrane, ear canal and external ear normal. Left Ear: Hearing, tympanic membrane, ear canal and external ear normal. Nose: Nose normal. Mouth/Throat: Lips: [facility]. Mouth: Mucous membranes are moist. Pharynx: Oropharynx is clear. Cardiovascular: Rate and Rhythm: Normal rate and regular rhythm. Heart sounds: Normal heart sounds. Pulmonary: Effort: Pulmonary effort is normal. Breath sounds: Normal breath sounds. Abdominal: General: Bowel sounds are normal. Palpations: Abdomen is soft. Musculoskeletal: General: Normal range of motion. Cervical back: Normal range of motion. Skin: General: Skin is warm and dry. Capillary Refill: Capillary refill takes less than 2 seconds. Neurological: General: No focal deficit present. Mental Status: She is alert and oriented to person, place, and time. Mental status is at baseline. GCS: GCS eye subscore is 4. GCS verbal subscore is 5. GCS motor subscore is 6. Cranial Nerves: Cranial nerves are intact. Sensory: Sensation is intact. Motor: Motor function is intact. Coordination: Coordination is intact. Psychiatric: Mood and Affect: Mood normal. Behavior: Behavior normal. Thought Content: Thought content normal. Procedure Notes Procedures Results Recent Results (from the past 168 hour(s)) POC , Urine Collection Time: 03/26/22 2:59 PM Result Value Ref Range POC Preg Test, Ur Negative Negative Internal Control Pass XR Chest AP/PA and LAT Final Result No radiographic evidence of acute cardiopulmonary abnormality. Workstation ID: [id number] Orders Placed This Visit Orders Placed This Encounter Procedures XR Chest AP/PA and LAT POC , Urine Medication List At End Of Visit Current Outpatient Medications Medication Sig Dispense Refill albuterol (Proventil HFA) 90 mcg/actuation inhaler Inhale 2 (two) puffs every 4 (four) hours as needed for wheezing or shortness of breath . 18 g 0 benzonatate (TESSALON) 200 MG capsule Take 1 (one) capsule (200 mg total) by mouth 3 (three) times a day as needed for cough . 20 capsule 0 predniSONE (DELTASONE) 10 MG tablet 40 mg x 3 days, 30 mg x 3 days, 20 mg x 3 days. . 27 tablet 0 No current facility-administered medications for this visit. Patient Instructions If symptoms worsen you should seek evaluation at the ED. Please follow up with primary care provider in one week. You may take over the counter pain relief medication as directed on package insert. This could include alternating between Acetaminophen (Tylenol) and Ibuprofen (Motrin). Be sure to avoid doubling NSAIDS such as Ibuprofen, Aleve, and Aspirin. Take Prednisone as ordered. Do not suddenly stop medication. You should take the dose first thing in the AM, once daily. Do not take Prednisone with other NSAID's such as Ibuprofen/Aleve/Advil/Aspirin/Naproxen . We discussed course of viral illness. We also discussed that treatment for viral illness involves symptom management, as antibiotics do not treat viral infections. We also discussed good supportive care for management of symptoms. documented in this encounter [facility] 01-29-2022 History of Present illness Narrative HISTORY OF PRESENT ILLNESS: Lulu Buchanan is a 31-year-old female comes here for follow-up for iron deficiency anemia. She has body aches with fever and fatigue for >2 weeks, evaluated by her PCP on 08/25/2020, some lab evaluation as follows: CMP panel unremarkable, creatinine 0.92, LFT CBC: WBC 6.5, Hb 10.3, MCV 71.1, PLT 338, differential normal Sed rate elevated at 22, CRP normal, TSH normal 0.94 EBV antibody profile negative for IgM, positive for IgG and nuclear Ag/Ab She has a history of anemia, CBC on 03/20/2019 showed WBC 12.6, Hb 8.3, MCV 77.5, platelet 340. Absolute neutrophil was elevated at 8.2. Another CBC on 03/15/2019 showed WBC 13.9, hemoglobin 10, MCV 75.4, platelet 242. Another CBC from 03/13/2019 showed hemoglobin of 10.5. CBC from 01/29/2019 showed hemoglobin 10.6. CBC from 01/01/2019 showed hemoglobin of 11, MCV 80.4. CBC from 12/19/2018 showed hemoglobin 11.6 and finally she had a CBC on 11/06/2018 which showed normal WBC at 8.5, normal hemoglobin at 12, MCV low at 78.8, platelet normal at 249. According to her she has history of preeclampsia with her all 4 pregnancies and had anemia during , she had blood transfusion in April 2016, hemoglobin was 7.8 in February 2019 after delivery due to needing. She was taking ferrous gluconate 325 mg daily, also on liquid iron [id number] supplement daily she has intolerance, said it is hard on the stomach, she has nausea with oral iron. Earlier she denied heavy menstruation, she had IUD, after she received Injectafer here, according to her she started the heavy menstruation lasting for 7 days and also had spotting in the rectum area with bright red blood frequently. She had a EGD and colonoscopy on 12/10/2020 which was normal, surgical pathology from antrum biopsy showed gastric oxyntic mucosa with no significant pathologic changes, negative for H. pylori, EGD biopsy showed esophageal squamous mucosa with reactive changes and increased eosinophils, mildly inflamed gastric cardia fundic type mucosa, no evidence of intestinal metaplasia or dysplasia, terminal ileum biopsy showed a small bowel mucosa with no significant pathologic changes. CURRENT STATUS: She is here for follow-up, doing well, fatigue and weakness for the resolved, she does not have any more anxiety, her menstruation continues to be on heavy site lasting for 5 days. She denies any melena. ECOG PERFORMANCE STATUS: 0- Fully active, able to carry on all pre-disease performance w/o restriction. Blood pressure 123/80, pulse 69, temperature 36.9 C (98.5 F), temperature source Tympanic, resp. rate 16, weight 61.4 kg (135 lb 6.4 oz), last menstrual period 11/20/2020, SpO2 99 %. PHYSICAL EXAM: CONSTITUTIONAL: Awake, alert, oriented. No acute distress. HEAD (Incl. face): Normocephalic; Atraumatic. EYES: Pupils are reactive. No icterus. THROAT: No oral exudates. NECK: No thyromegaly. No JVD. HEMATOLOGY/LYMPHATIC: No cervical adenopathy. RESPIRATORY: Lungs are clear to auscultation. CARDIOVASCULAR: Regular rate and rhythm. No murmur or gallop. ABDOMEN: Non-tender, soft, no organomegaly. EXTREMITIES: No edema INTEGUMENTARY: No rashes. NEURO: No sensory or motor deficits, normal cerebellar function, normal gait. PSYCHIATRIC: Pleasant affect. No signs of agitation. LABS: Lab on 01/26/2022: Ferritin 126, iron saturation 32%, TIBC 339, iron 108 WBC 8.7, hemoglobin 14.3, platelet 241 Lab on 06/25/2021: Ferritin 11, iron saturation 24%, TIBC 374, iron 88 WBC 5.5, hemoglobin 14.1, MCV 85.7, platelet 241. Lab on 02/10/2021: Ferritin 5.6, Iron saturation 6%, TIBC 518, iron 30 WBC 5.6, hemoglobin 10.7, MCV 70, platelet 288 Lab on 11/16/2020: Ferritin 108, iron saturation 33%, TIBC 312, iron 104 WBC 5.4, hemoglobin 12.9, MCV 81.4, platelet 221. Lab on 09/09/2020: Ferritin 5.6, iron saturation 6%, TIBC 518, iron 30, absolute reticulocyte normal, hemoglobin 10.7, MCV 70, WBC 5.6, platelet 288 ASSESSMENT/PLAN: History of iron deficiency anemia secondary to heavy menstruation. Baseline ferritin 5.6 and iron saturation 6% on 09/09/2020 She underwent EGD and colonoscopy which was unremarkable. -s/p Injectafer on 09/22/2020. -s/p Monoferric on 11/13/2021. Repeat lab reviewed, iron studies and hemoglobin normal. Symptoms resolved. Continue surveillance, advised to continue follow-up with her [employer]. RTC 6 months with lab. Advised to call earlier if she becomes symptomatic. Lucy Cheung MD CC: Dionte Hoffman Elements copied from previous note, have been reviewed and updated where appropriate, and all reflect current assessment and plan. Note: This dictation was generated using [employer] recognition software. Please excuse any grammatical or spelling errors that may have occurred using the system Orders Placed This Encounter CBC 6M Standing Status: Future Standing Expiration Date: 01/29/2023 Ferritin 6m Standing Status: Future Standing Expiration Date: 09/27/2022 iron+TIBC 6m Standing Status: Future Standing Expiration Date: 09/30/2022 documented in this encounter [facility] 11-03-2021 Instructions Gibran Aranda PA-C - 11/03/2021 3:30 PM EDT Your strep screen today is negative. No antibiotics are needed at this time. The influenza test is positive for influenza A and will certainly explain all of your symptoms. Plenty of rest and plenty of fluids over the next several days. You should remain quarantined for a total of 6 days from the onset of your new symptoms. Take the prednisone orally as directed. One dose daily in the morning with breakfast. Tessalon Perles, one tablet every 8 hours to help suppress your cough. Phenergan DM cough syrup for cough not relieved by Tessalon Perles. This medication will make you very sleepy. Do not drink alcohol, drive or operate machinery while taking this medication. Albuterol puffer, 2 puffs every 4 hours as needed for wheezing or tightness with breathing. Follow-up with your primary care provider in 5-7 days if not improved. The following attachments cannot be sent through Care Everywhere.Influenza (Romanian)documented in this encounter [facility] 11-03-2021 History of Present illness Narrative PATIENT NAME: Lulu Buchanan [facility]: [address] [facility] [id number] DATE OF VISIT: 11/03/2021 DATE OF : 1990 SS: [id number] PROVIDER: SUBJECTIVE 31 y.o. female to the clinic for complaint of Chief Complaint Patient presents with Illness States Sore throat, fever, productive cough, runny nose, and tightness in chest, body aches and chills since Tuesday. States tested positive for covid 5 weeks ago. Is not vacc. No known exposure HPI: 31-year-old female to the urgent care for viral URI symptoms/influenza-like symptoms have been present now for the past 4 to 7 days, worsening over the past 3-4. Positive for Covid back 5 weeks ago. We will not test her for the same today. Patient complains of a mild tightness with breathing. She feels significantly fatigued but is uncertain whether it is her chronic anemia or a viral illness. We have decided we will test her both for strep and influenza A/B. ROS: Constitutional: Intermittent fever, positive for chills and fatigue Head/Ear/Nose/Throat: Denies earache. Positive for sore throat Respiratory: See HPI above. Cardiovascular: Denies chest pain Gastrointestinal: Denies abdominal pain, Denies nausea, Denies vomiting Musculoskeletal: Denies Joint pain, body aches present Neurological: Denies Headache, Denies focal neuro symptoms Social History Socioeconomic History Marital status: Tobacco Use Smoking status: Never Smoker Smokeless tobacco: Never Used Vaping Use Vaping Use: Never used Substance and Sexual Activity Alcohol use: No Drug use: No Past Medical History: Diagnosis Date Anemia Asthma History of blood transfusion 2016 Preeclampsia Family History Problem Relation Age of Onset Heart disease Mother Colon polyps Father Lymphoma Paternal Aunt Lymphoma Paternal Grandmother No current outpatient medications on file prior to visit. No current facility-administered medications on file prior to visit. No Known Allergies EXAM: BP 128/83 Pulse (!) 107 Temp 98.5 F (36.9 C) (Tympanic) Resp 18 Ht 5' 4 Wt 59.5 kg (131 lb 3.2 oz) SpO2 95% BMI 22.52 kg/m Primary Assessment: Airway patent. Respirations unlabored, Normal respiratory effort Constitutional: Vital signs reviewed. Well appearing. No distress Psychiatric: Mental status appropriate. Normal affect Skin: Warm and dry. HENT: Normal Tms. Posterior pharynx clear. Thorax/ Respiratory: Respiratory effort non-labored. BBS clear ant/post. No wheezes, rales or rhonchi. Gastrointestinal: Abdomen soft and non-tender Neurologic: Alert and Oriented PROCEDURE Procedures RESULTS Recent Results (from the past 168 hour(s)) POC Strep A - Molecular Collection Time: 11/03/21 3:10 PM Result Value Ref Range Strep A Screen Negative Negative POC Influenza A/B, Molecular Collection Time: 11/03/21 3:13 PM Result Value Ref Range Influenza A, Molecular Positive (A) Negative Influenza B, Molecular Negative Negative Diagnosis: The primary encounter diagnosis was Influenza A. Diagnoses of Viral URI with cough, Sore throat, Fever, unspecified fever cause, and Tightness in chest were also pertinent to this visit. Plan: 1. Influenza A 2. Viral URI with cough POC Influenza A/B, Molecular 3. Sore throat POC Strep A - Molecular POC Influenza A/B, Molecular 4. Fever, unspecified fever cause POC Strep A - Molecular POC Influenza A/B, Molecular 5. Tightness in chest POC Influenza A/B, Molecular No follow-ups on file. ORDERS PLACED THIS VISIT Orders Placed This Encounter Procedures POC Strep A - Molecular POC Influenza A/B, Molecular MEDICATION LIST AT END OF VISIT Current Outpatient Medications Medication Sig Dispense Refill albuterol (Proventil HFA) 90 mcg/actuation inhaler Inhale 2 (two) puffs every 4 (four) hours as needed for wheezing or shortness of breath . 18 g 0 benzonatate (TESSALON) 200 MG capsule Take 1 (one) capsule (200 mg total) by mouth 3 (three) times a day as needed for cough . 30 capsule 0 predniSONE (DELTASONE) 20 MG tablet 2 po QAM x 3 days, then 1 po QAM x 3 days. Take one dose daily each day with breakfast. . 9 tablet 0 promethazine-dextromethorphan (PROMETHAZINE-DM) 6.25-15 mg/5 mL syrup Take 5 mL by mouth every 6 (six) hours as needed for cough . 240 mL 0 No current facility-administered medications for this visit. - Molecular influenza A/B: Positive for A. She will's remain quarantined at home for 6 days. Patient states she is a [id number]-lv-mrly mom -Molecular strep a: Negative, no antibiotic prescribed - Rx: Albuterol MDI, Prednisone 40,40,40,40,20,20,20, 20. Tessalon Perles 200 mg, Phenergan DM cough syrup for cough not relieved by Tessalon. Gibran Aranda 11/03/2021 documented in this encounter [facility] 02-10-2021 History of Present illness Narrative History of Present Illness Presence of Pain: denies pain/discomfort. Total time spent in this encounter was 45 minutes. Patient is being evaluated for an unstable chronic illness that increase morbidity and mortality. Due to patient's coexisting health problems and co-morbidities treatment is and will be very difficult. Pt stated that she has rotating joint pain. Pt stated that the pain comes and goes. Pt also stated that when she wakes up in the moring that her right foot is swollen and the arch is raised, she said it comes and goes. Pt continues to walk on it even with the pain. Pt states that she does take tyelnol for the pain. Pt states that after awhile she has to rest because it feels broken. Pt states that she has alot of muscle pain,but after having infusions some of the muscle stop aching. Patient has been found to have eosinophilic esophagitis as cause of iron def anemia. Muscle and joint pain and fatigue is better since iron infusions. Review of Systems Constitutional: Positive for fatigue. HENT: Negative. Eyes: Negative. Respiratory: Negative. Cardiovascular: Negative. Gastrointestinal: Eosinophilic esophagitis Endocrine: Negative. Genitourinary: Negative. Musculoskeletal: Positive for back pain, neck pain and neck stiffness. Skin: Negative. Neurological: Negative. Hematological: Iron def anemia Psychiatric/Behavioral: Negative. Vitals: Blood pressure 107/77, pulse 70, temperature 97.7 F (36.5 C), temperature source Temporal, height 1.626 m (5' 4 ), weight 57.9 kg (127 lb 9.6 oz), SpO2 99 %, not currently . Physical Exam Vitals and nursing note reviewed. Constitutional: Appearance: Normal appearance. HENT: Head: Normocephalic and atraumatic. Right Ear: External ear normal. Left Ear: External ear normal. Nose: Nose normal. Mouth/Throat: Mouth: Mucous membranes are moist. Pharynx: Oropharynx is clear. Comments: Mask Braces Eyes: Extraocular Movements: Extraocular movements intact. Conjunctiva/sclera: Conjunctivae normal. Pupils: Pupils are equal, round, and reactive to light. Cardiovascular: Rate and Rhythm: Normal rate and regular rhythm. Pulses: Carotid pulses are 2+ on the right side and 2+ on the left side. Radial pulses are 2+ on the right side and 2+ on the left side. Dorsalis pedis pulses are 2+ on the right side and 2+ on the left side. Posterior tibial pulses are 2+ on the right side and 2+ on the left side. Heart sounds: Normal heart sounds. Comments: No subclavian or carotid bruits Pulmonary: Effort: Pulmonary effort is normal. Breath sounds: Normal breath sounds. Abdominal: General: Bowel sounds are normal. Palpations: Abdomen is soft. Musculoskeletal: General: Normal range of motion. Right shoulder: Normal. Left shoulder: Normal. Right upper arm: Normal. Left upper arm: Normal. Right elbow: Normal. Left elbow: Normal. Right forearm: Normal. Left forearm: Normal. Right wrist: Normal. Left wrist: Normal. Right hand: Normal. Left hand: Normal. Cervical back: Normal range of motion and neck supple. Tenderness present. Thoracic back: Tenderness present. Lumbar back: Tenderness present. Right hip: Normal. Left hip: Normal. Right upper leg: Normal. Left upper leg: Normal. Right knee: Normal. Left knee: Normal. Right lower leg: Normal. Left lower leg: Normal. Right ankle: Normal. Left ankle: Normal. Right foot: Normal. Left foot: Normal. Skin: General: Skin is warm and dry. Comments: Tattoos volar L wrist and dorsum R foor Neurological: Mental Status: She is alert and oriented to person, place, and time. Cranial Nerves: Cranial nerves are intact. Sensory: Sensation is intact. Motor: Motor function is intact. Gait: Gait is intact. Deep Tendon Reflexes: Reflexes are normal and symmetric. Reflex Scores: Tricep reflexes are 2+ on the right side and 2+ on the left side. Bicep reflexes are 2+ on the right side and 2+ on the left side. Brachioradialis reflexes are 2+ on the right side and 2+ on the left side. Patellar reflexes are 2+ on the right side and 2+ on the left side. Achilles reflexes are 2+ on the right side and 2+ on the left side. Psychiatric: Mood and Affect: Mood normal. Behavior: Behavior normal. Thought Content: Thought content normal. Judgment: Judgment normal. Neurological Exam Mental Status Alert. Cranial Nerves CN III, IV, : Extraocular movements intact bilaterally. Pupils equal round and reactive to light bilaterally. Reflexes Deep tendon reflexes are 2+ and symmetric in all four extremities with downgoing toes bilaterally. Right Left Brachioradialis 2+ 2+ Biceps 2+ 2+ Triceps 2+ 2+ Patellar 2+ 2+ Achilles 2+ 2+ Gait Normal gait. Assessment and Plan Encounter Diagnoses Name Primary? Cervicalgia Yes Dorsalgia Disorder of bone and cartilage Iron deficiency anemia due to chronic blood loss Fatigue, unspecified type Family history of psoriasis Family history of psoriatic arthritis Family history of systemic lupus erythematosus Eosinophilic esophagitis 1. Time was spent with the patient today in education in re: to all their medical conditions. A complete H&P&ROS was obtained and is either in this note or in the EHR. Please do not hesitate to contact me with any questions or concerns re: this patient. Past History Past medical, surgical, family, and social histories have been reviewed and updated with the patient today and are located elsewhere in the medical record. 2. Thank you for allowing me to participate in the care of your patient. With your permission I would like to F/U with your patient. 3. Differenetial Diagnosis includes but is not limited to Autoimmune Disease, Connective Tissue Disease, Collagen Vascular Disorder, Infection, and Neoplasm. 4. Lab and x-ray and F/U with me in 2 weeks 5. CONSULTING HR PROFESSIONAL F/U per Dr. Dover 6. Normal CBC, CMP 7. ESR is normal at 22 8. CRP is negative at < 2.9 9. Uric acid is normal at 4.6 10. Negative ISABELA, RF, 11. Patient takes Excedrin for pain or IBP or Motrin and patient declines stronger pain medication 12. If patient continues to have trouble with back pain would rec: eval by spinal surgery and/or chronic pain management 13. If neck pain continues rec: eval by spinal surgery and/or chronic pain management 14. Rx given for PT 15. Hem/Onc F/U per Dr. Cheung 16. Rx given for Flexeril documented in this encounter [facility] 12-10-2020 Hospital Discharge instructions Nya Fajardo MD - 12/10/2020 11:22 AM EDT EGD and colon was normal in appearance. Multiple biopsies taken. My office will contact you with results. Please avoid aspirin, nsaids for 5 days due to biopsies Follow up with your referring physicians. documented in this encounter [facility] 12-10-2020 History and physical note INTERVAL HISTORY AND PHYSICAL Patient Name: Lulu Buchanan Admit Date: [id number] MR #: [id number] : 1990 The H&P has been reviewed and the patient has been examined. I concur with the findings of the H&P. There are no significant changes. It is appropriate to proceed with the planned procedure. Nya Fajardo MD 12/10/2020 10:30 AM HISTORY & PHYSICAL EXAMINATION Patient Name: Lulu Buchanan MR #: [id number] : 1990 Physicians: Dionte Hoffman DO (Family); Lucy Cheung MD (Referring) Chief Complaint/Reason for Visit: Iron deficiency anemia History of Present Illness: Lulu Buchanan is a 30 y.o. y/o female past medical history of preeclampsia and asthma presenting for referral for endoscopic work-up of iron deficiency anemia. Last colonoscopy was none. Patient reports that she has struggled with anemia for quite some time. Has attempted oral iron in the past. Is being seen by hematology/oncology for continued work-up and is undergoing Venofer infusions which have improved her symptoms. She denies any significant menorrhagia except for her last 2 menstrual cycles have been heavier than normal. Reports that her stools have been black for quite some time but attributes that to oral iron intake. Has had changes in her bowel habits as of late but with significant loose mucus-like stool and a few episodes of bright red blood per rectum. She denies any significant nausea or vomiting. Family history negative for any significant colon cancer. Risk factor/ Bowel Symptoms Diarrhea yes. Constipation no. Blood in stool yes. Mucus in stool yes. Change in caliber of stool no. Diagnosis of anemia yes. Family history of colon cancer no. Family history of other digestive cancer. no. History: I have reviewed the PMHx, PSHx, SHx, FHx in EMR with the patient during this encounter face to face and patient agrees with the documentation Past Medical History: Diagnosis Date Anemia Asthma History of blood transfusion 2016 Preeclampsia Past Surgical History: Procedure Laterality Date SECTION 05/20/2016 Family History Problem Relation Age of Onset Heart disease Mother Colon polyps Father Lymphoma Paternal Aunt Lymphoma Paternal Grandmother Social History Socioeconomic History Marital status: Spouse name: Not on file Number of children: Not on file Years of education: Not on file Highest education level: Not on file Occupational History Not on file Social Needs Financial resource strain: Not on file Food insecurity Worry: Not on file Inability: Not on file Transportation needs Medical: Not on file Non-medical: Not on file Tobacco Use Smoking status: Never Smoker Smokeless tobacco: Never Used Substance and Sexual Activity Alcohol use: No Drug use: No Sexual activity: Not on file Lifestyle Physical activity Days per week: Not on file Minutes per session: Not on file Stress: Not on file Relationships Social connections Talks on phone: Not on file Gets together: Not on file Attends alevism service: Not on file Active member of club or organization: Not on file Attends meetings of clubs or organizations: Not on file Relationship status: Not on file Other Topics Concern Not on file Social History Narrative Not on file Allergy Information: Patient has no known allergies. Home Medications: Outpatient Medications as of 11/26/2020 Medication Sig DULoxetine (CYMBALTA) 20 MG capsule Take 1 (one) capsule (20 mg total) by mouth daily . ferrous gluconate 324 mg (37.5 mg iron) Tab Take 1 (one) tablet (324 mg total) by mouth daily with breakfast . ibuprofen (ADVIL,MOTRIN) 200 MG tablet Take 400 mg by mouth every 6 (six) hours as needed for pain. Review of Systems: Review of Systems Physical Examination: Vital Signs: BP 124/81 Pulse 78 Ht 5' 4 Wt 56.5 kg (124 lb 8 oz) SpO2 98% BMI 21.37 kg/m Physical Exam Constitutional: Appearance: Normal appearance. She is not toxic-appearing. HENT: Head: Normocephalic. Nose: Nose normal. Eyes: General: No scleral icterus. Pupils: Pupils are equal, round, and reactive to light. Neck: Musculoskeletal: Normal range of motion. Cardiovascular: Rate and Rhythm: Normal rate. Abdominal: General: Abdomen is flat. Palpations: Abdomen is soft. Musculoskeletal: Normal range of motion. General: No swelling. Skin: Coloration: Skin is pale. Skin is not jaundiced. Findings: No bruising. Neurological: General: No focal deficit present. Mental Status: She is alert. Psychiatric: Mood and Affect: Mood normal. Thought Content: Thought content normal. Judgment: Judgment normal. Laboratory and Additional Data Reviewed: Laboratory 11/26/20 12:57 PM Laboratory Lab Results Component Value Date WBC 6.52 08/25/2020 RBC 5.01 08/25/2020 HGB 10.2 (L) 08/25/2020 HCT 35.6 (L) 08/25/2020 PLT 338 08/25/2020 No results found for: AMYLASE No results found for: LIPASE Assessment and Plan: Lulu Buchanan is a 30 y.o. y/o female past medical history of preeclampsia and asthma presenting for referral for endoscopic work-up of iron deficiency anemia Patient Active Problem List Diagnosis Iron deficiency anemia Plan: Schedule for colonoscopy. Schedule for upper endoscopy. The risks and benefits of my recommendations, as well as other treatment options were discussed with the patient today including but not limited to perforation and bleeding. Prep instruction provided and consent obtained. Questions were answered. 1. Iron deficiency anemia, unspecified iron deficiency anemia type Ambulatory referral to General Surgery Case Request Operating Room: ESOPHAGOGASTRODUODENOSCOPY, COLONOSCOPY Vital signs Height and weight Vital signs Insert peripheral IV lactated Ringers infusion Covid-19/Influenza Order Algorithm : COVID-19 Lab Test Only (OP in UTM) POC , Urine 2. Change in bowel habits Case Request Operating Room: ESOPHAGOGASTRODUODENOSCOPY, COLONOSCOPY Vital signs Height and weight Vital signs Insert peripheral IV lactated Ringers infusion Covid-19/Influenza Order Algorithm : COVID-19 Lab Test Only (OP in UTM) POC , Urine 3. Mucus in stool Case Request Operating Room: ESOPHAGOGASTRODUODENOSCOPY, COLONOSCOPY Vital signs Height and weight Vital signs Insert peripheral IV lactated Ringers infusion Covid-19/Influenza Order Algorithm : COVID-19 Lab Test Only (OP in UTM) POC , Urine 4. Bright red blood per rectum Case Request Operating Room: ESOPHAGOGASTRODUODENOSCOPY, COLONOSCOPY Vital signs Height and weight Vital signs Insert peripheral IV lactated Ringers infusion Covid-19/Influenza Order Algorithm : COVID-19 Lab Test Only (OP in UTM) POC , Urine Total time 32 minutes, greater than 30% was spent [id number] with the patient obtaining a history, describing procedure obtaining consent and coordinating care Screening and Health maintenance Colonoscopy - Last colonoscopy none. [facility] Esophagitis, eosinophilic- Primary Eosinophilic [facility]itis [facility] Diagnosis Cervicalgia- Primary Dorsalgia Pain in thoracic spine Disorder of bone and cartilage Disorder of bone and cartilage, unspecified Iron deficiency anemia due to chronic blood loss Iron deficiency anemia secondary to blood loss (chronic) Fatigue, unspecified type Family history of psoriasis Family history of skin conditions Family history of psoriatic arthritis Family history of arthritis Family history of systemic lupus erythematosus Family history of skin conditions Eosinophilic esophagitis [facility] Diagnosis Cervicalgia Dorsalgia Pain in thoracic spine Disorder of bone and cartilage Disorder of bone and cartilage, unspecified Iron deficiency anemia due to chronic blood loss Iron deficiency anemia secondary to blood loss (chronic) Fatigue, unspecified type Family history of psoriasis Family history of skin conditions Family history of psoriatic arthritis Family history of arthritis Family history of systemic lupus erythematosus Family history of skin conditions Eosinophilic esophagitis [facility]* Diagnosis Influenza A- Primary Influenza with other respiratory manifestations Viral URI with cough Sore throat Acute pharyngitis Fever, unspecified fever cause Tightness in chest Other chest pain [facility] Diagnosis Iron deficiency anemia secondary to inadequate dietary iron intake- Primary Microcytic anemia Iron deficiency anemia, unspecified [facility] Diagnosis Iron deficiency anemia due to chronic blood loss- Primary Iron deficiency anemia secondary to blood loss (chronic) [facility] Diagnosis Upper respiratory tract infection, unspecified type- Primary Fever, unspecified fever cause [facility] Diagnosis Gastroenteritis- Primary Other and unspecified noninfectious gastroenteritis and colitis Diarrhea of presumed infectious origin Nausea and vomiting in adult Cough [facility]* Diagnosis Perspiration excessive- Primary 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 Other specified disorder of sweat glands Viral warts, unspecified type Skin tenderness Disturbance of skin sensation Multiple nevi documented in this encounter [facility] note* Diagnosis Iron deficiency anemia due to chronic blood loss- Primary Iron deficiency anemia secondary to blood loss (chronic) documented in this encounter [facility] [place] note* Diagnosis Iron deficiency anemia secondary to inadequate dietary iron intake- Primary Microcytic anemia Iron deficiency anemia, unspecified documented in this encounter [facility] [place] note* Diagnosis Pain of toe of right foot Pain in limb documented in this encounter [facility] [place] note* Diagnosis Microcytic anemia- Primary Iron deficiency anemia, unspecified documented in this encounter [facility] [place] note* Diagnosis UTI symptoms- Primary Missed menses documented in this encounter [facility] note* Diagnosis Dysuria- Primary Possible Cystitis Unspecified cystitis documented in this encounter [facility] note* Diagnosis Wellness examination- Primary Iron deficiency anemia, unspecified iron deficiency anemia type documented in this encounter [facility] note* Diagnosis Avulsion of toenail, initial encounter- Primary documented in this encounter [facility] note* Diagnosis Iron deficiency anemia due to chronic blood loss- Primary Iron deficiency anemia secondary to blood loss (chronic) [facility] Attachments The following attachments cannot be sent through Care Everywhere. * Gastroenteritis (Romanian) [facility] Attachments The following attachments cannot be sent through Care Everywhere. 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 Advance Directives and Living Will Documents on File Type Date Recorded 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 The immune system treats a harmless substance as if it were a harmful germ or virus. Many things can cause this overreaction, including pollens, medicine, food, dust, animal dander, and mold. Allergies can be mild or severe. Mild allergies can be managed with home treatment. But medicine may be needed to prevent problems. Managing your allergies is an important part of staying healthy. Your doctor may suggest that you have allergy testing to help find out what is causing your allergies. When you know what things trigger your symptoms, you can avoid them. This can prevent allergy symptoms and other health problems. For severe allergies that cause reactions that affect your whole body (anaphylactic reactions), your doctor may prescribe a shot of epinephrine to carry with you in case you have a severe reaction. Learn how to give yourself the shot and keep it with you at all times. Make sure it is not . Follow-up care is a russ part of your treatment and safety. Be sure to make and go to all appointments, and call your doctor if you are having problems. It's also a good idea to know your test resultsand keep a list of the medicines you take. How can you care for yourself at home? If you have been told by your doctor that dust or dust mites are causing your allergy, decrease thedust around your bed: ? Wash sheets, pillowcases, and other bedding in hot water every week. ? Use dust-proof covers for pillows, duvets, and mattresses. Avoid plastic covers because they teareasily and do not breathe. Wash as instructed on the label. ? Do not use any blankets and pillows that you do not need. ? Use blankets that you can wash in your washing machine. ? Consider removing drapes and carpets, which attract and hold dust, from your bedroom. If you are allergic to house dust and mites, do not use home humidifiers. Your doctor can suggest ways you can control dust and mites. Look for signs of cockroaches. Cockroaches cause allergic reactions. Use cockroach baits to get ridof them. Then, clean your home well. Cockroaches like areas where grocery bags, newspapers, empty bottles, or cardboard boxes are stored. Do not keep these inside your home, and keep trash and food containers sealed. Seal off any spots where cockroaches might enter your home. If you are allergic to mold, get rid of furniture, rugs, and drapes that smell musty. Check for mold in the bathroom. If you are allergic to outdoor pollen or mold spores, use air-conditioning. Change or clean all filters every month. Keep windows closed. If you are allergic to pollen, stay inside when pollen counts are high. Use a vacuum chrome cleaner with aHEPA filter or a double-thickness filter at least two times each week. Stay inside when air pollution is bad. Avoid paint fumes, perfumes, and other strong odors. Avoid conditions that make your allergies worse. Stay away from smoke. Do not smoke or let anyone else smoke in your house. Do not use fireplaces or wood- burning stoves. If you are allergic to your pets, change the air filter in your furnace every month. Use high-efficiency filters. If you are allergic to pet dander, keep pets outside or out of your bedroom. Old carpet and cloth furniture can hold a lot of animal dander. You may need to replace them. When should you call for help? Give an epinephrine shot if: You think you are having a severe allergic reaction. You have symptoms in more than one body area, such as mild nausea and an itchy mouth. After giving an epinephrine shot call 911, even if you feel better. Call 911 if: You have symptoms of a severe allergic reaction. These may include: ? Sudden raised, red areas (hives) all over your body. ? Swelling of the throat, mouth, lips, or tongue. ? Trouble breathing. ? Passing out (losing consciousness). Or you may feel very lightheaded or suddenly feel weak, confused, or restless. You have been given an epinephrine shot, even if you feel better. Call your doctor now or seek immediate medical care if: You have symptoms of an allergic reaction, such as: ? A rash or hives (raised, red areas on the skin). ? Itching. ? Swelling. ? Belly pain, nausea, or vomiting. Watch closely for changes in your health, and be sure to contact your doctor if: You do not get better as expected. Where can you learn more? Log into your personal health record on [email or web address] and enter W171 in the Education box to learn more about Allergies: Care Instructions. Current as of: November 26, 2018 Content Version: 12.3 3192-8400 [employer]. Care instructions adapted under license by your healthcare professional. If you have questions about a medical condition or this instruction, always ask your healthcare professional. [employer] disclaims any warranty or liability for your use of this information. documented in this encounter* Patient Instructions* Dionte Hoffman DO - 06/24/2020 4:02 PM EST Bronchitis: Care Instructions Your Care Instructions Bronchitis is inflammation of the bronchial tubes, which carry air to the lungs. The tubes swell and produce mucus, or phlegm. The mucus and inflamed bronchial tubes make you cough. You may have trouble breathing. Most cases of bronchitis are caused by viruses like those that cause colds. Antibiotics usually do not help and they may be harmful. Bronchitis usually develops rapidly and lasts about 2 to 3 weeks in otherwise healthy people. Follow-up care is a russ part of your treatment and safety. Be sure to make and go to all appointments, and call your doctor if you are having problems. It's also a good idea to know your test resultsand keep a list of the medicines you take. How can you care for yourself at home? Take all medicines exactly as prescribed. Call your doctor if you think you are having a problem with your medicine. Get some extra rest. Take an urcy-ypu-ccimstn pain medicine, such as acetaminophen (Tylenol), ibuprofen (Advil, Motrin),or naproxen (Aleve) to reduce fever and relieve body aches. Read and follow all instructions on thelabel. Do not take two or more pain medicines at the same time unless the doctor told you to. Many pain medicines have acetaminophen, which is Tylenol. Too much acetaminophen (Tylenol) can be harmful. Take an mfgl-pju-axioygv cough medicine that contains dextromethorphan to help quiet a dry, hackingcough so that you can sleep. Avoid cough medicines that have more than one active ingredient. Read and follow all instructions on the label. Breathe moist air from a humidifier, hot shower, or sink filled with hot water. The heat and moisture will thin mucus so you can cough it out. Do not smoke. Smoking can make bronchitis worse. If you need help quitting, talk to your doctor about stop-smoking programs and medicines. These can increase your chances of quitting for good. When should you call for help? Call 911 anytime you think you may need emergency care. For example, call if: You have severe trouble breathing. Call your doctor now or seek immediate medical care if: You have new or worse trouble breathing. You cough up dark brown or bloody mucus (sputum). You have a new or higher fever. You have a new rash. Watch closely for changes in your health, and be sure to contact your doctor if: You cough more deeply or more often, especially if you notice more mucus or a change in the color of your mucus. You are not getting better as expected. Where can you learn more? Log into your personal health record on [email or web address] and enter H333 in the Education box to learn more about Bronchitis: Care Instructions. Current as of: October 15, 2019 Content Version: 12.6 [employer]. Care instructions adapted under license by your healthcare professional. If you have questions about a medical condition or this instruction, always ask your healthcare professional. [employer] disclaims any warranty or liability for your use of this information. documented in this encounter* Patient Instructions* Dionte Hoffman DO - 08/25/2020 3:47 PM EST Fatigue: Care Instructions Your Care Instructions Fatigue is a feeling of tiredness, exhaustion, or lack of energy. You may feel fatigue because of too much or not enough activity. It can also come from stress, lack of sleep, boredom, and poor diet.Many medical problems, such as viral infections, can cause fatigue. Emotional problems, especially depression, are often the cause of fatigue. Fatigue is most often a symptom of another problem. Treatment for fatigue depends on the cause. Forexample, if you have fatigue because you have a certain health problem, treating this problem also treats your fatigue. If depression or anxiety is the cause, treatment may help. Follow-up care is a russ part of your treatment and safety. Be sure to make and go to all appointments, and call your doctor if you are having problems. It's also a good idea to know your test resultsand keep a list of the medicines you take. How can you care for yourself at home? Get regular exercise. But don't overdo it. Go back and forth between rest and exercise. Get plenty of rest. Eat a healthy diet. Do not skip meals, especially breakfast. Reduce your use of caffeine, tobacco, and alcohol. Caffeine is most often found in coffee, tea, cola drinks, and chocolate. Limit medicines that can cause fatigue. This includes tranquilizers and cold and allergy medicines. When should you call for help? Watch closely for changes in your health, and be sure to contact your doctor if: You have new symptoms such as fever or a rash. Your fatigue gets worse. You have been feeling down, depressed, or hopeless. Or you may have lost interest in things that you usually enjoy. You are not getting better as expected. Where can you learn more? Log into your personal health record on [email or web address] and enter W864 in the Education box to learn more about Fatigue: Care Instructions. Current as of: October 17, 2019 Content Version: 12.7 [employer]. Care instructions adapted under license by your healthcare professional. If you have questions about a medical condition or this instruction, always ask your healthcare professional. [employer] disclaims any warranty or liability for your use of this information. documented in this encounter History of Present Illness * Dionte Hoffman DO - 01/31/2020 1:22 PM EDT Subjective Pt here today for rash x1 week, intermittent. Described as a hivey rash all over her body from morning until night, started taking Bhavya 2 days ago and now that rash is cleared up. Pt still c/o ongoing fatigue, mylagia, and BP trouble. Patient ID: Lulu Buchanan is a 29 y.o. female. HPI Review of Systems Constitutional: Positive for fatigue. Negative for chills and fever. HENT: Negative for congestion, hearing loss and sore throat. Eyes: Negative for visual disturbance. Respiratory: Negative for cough and shortness of breath. Cardiovascular: Negative for chest pain and leg swelling. Gastrointestinal: Negative for abdominal pain, nausea and vomiting. Endocrine: Negative for polydipsia. Genitourinary: Negative for dysuria. Musculoskeletal: Positive for myalgias. Skin: Positive for rash. Allergic/Immunologic: Negative. Neurological: Negative for dizziness and headaches. Hematological: Negative for adenopathy. Psychiatric/Behavioral: Negative. Objective Physical Exam Vitals signs and nursing note reviewed. Constitutional: Appearance: Normal appearance. She is well-developed. HENT: Head: Normocephalic and atraumatic. Right Ear: External ear normal. Left Ear: External ear normal. Nose: No congestion. Eyes: Conjunctiva/sclera: Conjunctivae normal. Pupils: Pupils are equal, round, and reactive to light. Neck: Musculoskeletal: Normal range of motion and neck supple. No muscular tenderness. Cardiovascular: Rate and Rhythm: Normal rate and regular rhythm. Heart sounds: Normal heart sounds. No murmur. Pulmonary: Effort: Pulmonary effort is normal. Breath sounds: Normal breath sounds. No wheezing or rales. Chest: Chest wall: No tenderness. Abdominal: General: Bowel sounds are normal. Palpations: Abdomen is soft. Tenderness: There is no abdominal tenderness. There is no guarding or rebound. Musculoskeletal: Normal range of motion. General: No swelling or tenderness. Lymphadenopathy: Cervical: No cervical adenopathy. Skin: General: Skin is warm and dry. Findings: No erythema or rash. Neurological: Mental Status: She is alert and oriented to person, place, and time. Deep Tendon Reflexes: Reflexes are normal and symmetric. Psychiatric: Mood and Affect: Mood normal. Behavior: Behavior normal. Thought Content: Thought content normal. Assessment/Plan: Diagnoses and all orders for this visit: Environmental and seasonal allergies Urticaria Fatigue, unspecified type Myalgia - Arthritis Panel; Future - CPK NO MB; Future Essential hypertension - Basic Metabolic Panel; Future Chronic pain syndrome - DULoxetine (CYMBALTA) 20 MG capsule; Take 1 (one) capsule (20 mg total) by mouth daily . - Arthritis Panel; Future - CPK NO MB; Future We discussed urticaria. She has chronic pain and this may trigger urticaria. Will start cymbalta. Continue with allergra prn. Discussed possible allergy referral in future. For any new medications prescribed today, patient was educated about indications for the medication, how to take the medication and potential side effects of the medications. Follow up prn. She will monitor bp at home and let me know results. She has had bp elevation over the last 4 yearsas she had issues through in past. documented in this encounter* Dionte Hoffman DO - 06/24/2020 3:59 PM EST Subjective She has cough, tightness in chest and trouble getting deep breath for 10 days. She has had fevers for at least 6 days. States has been tested twice for COVID, once at drive thru and once at urgent care, both negative. States currently in isolation because of exposure and sx. She did haveexposure in past to friend who had covid. She did not lose taste or smell. Patient ID: Lulu Buchanan is a 30 y.o. female. HPI Review of Systems Constitutional: Negative for chills and fever. HENT: Positive for congestion. Negative for hearing loss and sore throat. Eyes: Negative for visual disturbance. Respiratory: Positive for cough and chest tightness. Cardiovascular: Negative for chest pain and leg swelling. Gastrointestinal: Negative for abdominal pain and nausea. Endocrine: Negative for polydipsia. Genitourinary: Negative for dysuria. Musculoskeletal: Negative for myalgias. Skin: Negative for rash. Allergic/Immunologic: Negative. Neurological: Negative for dizziness and headaches. Hematological: Negative for adenopathy. Psychiatric/Behavioral: Negative. Objective Physical Exam Vitals signs and nursing note reviewed. Constitutional: Appearance: Normal appearance. She is well-developed. HENT: Head: Normocephalic and atraumatic. Right Ear: External ear normal. Left Ear: External ear normal. Nose: No congestion. Mouth/Throat: Pharynx: No posterior oropharyngeal erythema. Eyes: Conjunctiva/sclera: Conjunctivae normal. Pupils: Pupils are equal, round, and reactive to light. Neck: Musculoskeletal: Normal range of motion and neck supple. No muscular tenderness. Cardiovascular: Rate and Rhythm: Normal rate and regular rhythm. Heart sounds: Normal heart sounds. Pulmonary: Effort: Pulmonary effort is normal. Breath sounds: Normal breath sounds. No wheezing or rales. Chest: Chest wall: No tenderness. Abdominal: General: Bowel sounds are normal. Palpations: Abdomen is soft. Tenderness: There is no abdominal tenderness. There is no guarding or rebound. Musculoskeletal: Normal range of motion. General: No swelling or tenderness. Lymphadenopathy: Cervical: No cervical adenopathy. Skin: General: Skin is warm and dry. Findings: No erythema or rash. Neurological: Mental Status: She is alert and oriented to person, place, and time. Deep Tendon Reflexes: Reflexes are normal and symmetric. Psychiatric: Mood and Affect: Mood normal. Behavior: Behavior normal. Thought Content: Thought content normal. Assessment/Plan: Diagnoses and all orders for this visit: Mild intermittent asthmatic bronchitis with acute exacerbation - predniSONE (DELTASONE) 10 MG tablet; 3 tabs po daily for 3 days then 2 tabs po daily for 3 days then 1 tab po daily for 5 days . - XR Chest AP/PA and LAT; Future Cough - predniSONE (DELTASONE) 10 MG tablet; 3 tabs po daily for 3 days then 2 tabs po daily for 3 days then 1 tab po daily for 5 days . - XR Chest AP/PA and LAT; Future For any new medications prescribed today, patient was educated about indications for the medication, how to take the medication and potential side effects of the medications. Follow up prn. documented in this encounter* Dionte Hoffman DO - 08/25/2020 3:44 PM EST Subjective Pt here today for body aches with fever and fatigue x2 weeks. Has been taking care of grandparents with Covid, has also had multiple negative Covid tests. Patient ID: Lulu Buchanan is a 30 y.o. female. HPI Review of Systems Constitutional: Positive for fatigue and fever. Negative for chills. HENT: Negative for congestion and sore throat. Eyes: Negative for visual disturbance. Respiratory: Negative for cough. Cardiovascular: Negative for chest pain. Gastrointestinal: Negative for abdominal pain. Endocrine: Negative for polydipsia. Genitourinary: Negative for dysuria. Musculoskeletal: Positive for arthralgias, back pain, myalgias and neck pain. Skin: Negative for rash. Allergic/Immunologic: Negative. Neurological: Negative for dizziness and headaches. Hematological: Negative for adenopathy. Psychiatric/Behavioral: Negative. Objective Physical Exam Vitals signs and nursing note reviewed. Constitutional: Appearance: Normal appearance. She is well-developed. HENT: Head: Normocephalic and atraumatic. Right Ear: Tympanic membrane and external ear normal. Left Ear: Tympanic membrane and external ear normal. Nose: No congestion. Mouth/Throat: Pharynx: No posterior oropharyngeal erythema. Eyes: Conjunctiva/sclera: Conjunctivae normal. Pupils: Pupils are equal, round, and reactive to light. Neck: Musculoskeletal: Normal range of motion and neck supple. No muscular tenderness. Cardiovascular: Rate and Rhythm: Normal rate and regular rhythm. Heart sounds: Normal heart sounds. Pulmonary: Effort: Pulmonary effort is normal. Breath sounds: Normal breath sounds. No wheezing or rales. Chest: Chest wall: No tenderness. Abdominal: General: Bowel sounds are normal. Palpations: Abdomen is soft. Tenderness: There is no abdominal tenderness. There is no guarding or rebound. Musculoskeletal: Normal range of motion. General: No swelling or tenderness. Lymphadenopathy: Cervical: No cervical adenopathy. Skin: General: Skin is warm and dry. Findings: No erythema or rash. Neurological: Mental Status: She is alert and oriented to person, place, and time. Deep Tendon Reflexes: Reflexes are normal and symmetric. Psychiatric: Mood and Affect: Mood normal. Behavior: Behavior normal. Thought Content: Thought content normal. Assessment/Plan: Diagnoses and all orders for this visit: Fatigue, unspecified type - CBC and Differential; Future - Comprehensive Metabolic Panel; Future - TSH; Future - EBV Antibody Profile (IGG/M,EBNA); Future Myalgia - Sedimentation Rate; Future - CRP, Inflammation; Future Will get lab work. Discussed possible COVID despite negative test. Follow up depending on lab results. documented in this encounter Assessments Diagnosis Environmental and seasonal allergies Urticaria Unspecified urticaria Fatigue, unspecified type Myalgia Unspecified myalgia and myositis Essential hypertension Unspecified essential hypertension Chronic pain syndrome Diagnosis Mild intermittent asthmatic bronchitis with acute exacerbation- Primary Cough Diagnosis Fatigue, unspecified type- Primary Myalgia Unspecified myalgia and myositis Diagnosis Anemia, unspecified type- Primary Reason for Referral Status Reason Specialty Diagnoses / Procedures Referred By Contact Referred To Contact Authorized General Surgery Diagnoses Anemia, unspecified type Lucy Cheung MD [address] [place] [address] [facility] [address] [facility] Medical Office Building, 5th [place] [address] Status Reason Specialty Diagnoses / Procedures Referred By Contact Referred To Contact New Request Physical Therapy Diagnoses Cervicalgia Dorsalgia Disorder of bone and cartilage Iron deficiency anemia due to chronic blood loss Fatigue, unspecified type Family history of psoriasis Family history of psoriatic arthritis Family history of systemic lupus erythematosus Eosinophilic esophagitis Ivana Marcelo, Tenisha Lam, DO [address] [place] [address] Scheduling Instructions . Specialty Diagnoses / Procedures Referred By Contac t Referred To Contact Dermatology Diagnoses Perspiration excessive Dionte Hoffman, DO [address] [facility] 1 [place] [address] Vincent Mace Jr., DO [address] [place] [address] Referral ID Status Reason Start Date Expiration Date Visits Requested Visits Authorized [id number] Authorized Specialty Services Required/Pat zia's Best Interest 04/23/2022 04/23/2023 1 1 Specialty Diagnoses / Procedures Referred By Contterri t Referred To Contact Diagnoses Bromhidrosis Vincent Mace Jr., DO [address] [place] [address] Referral ID Status Reason Start Date Expiration Date Visits Re quested Visits Authorized [id number] Closed 1 1 Medications Administered Section Inactive Administered Medications - up to 3 most recent administrations Medication Order MAR Action Action Date Dose Rate Site acetaminophen 650 mg tab(s) (TYLENOL) 650 mg, ORAL, ONCE, 1 dose, On Tue11/13/21 at 1100, Give 30 minutes prior to infusion. No more than 4000 mg of acetaminophen should be given per day (FROM ALL SOURCES), If ordered PRN for pain, patient/guardian may elect to receive this medication for higher pain levels if preferred: N/A Given 11/13/2021 10:36 AM EDT 650 mg diphenhydrAMINE 50 mg (BENADRYL) 50 mg, ORAL, ONCE, 1 dose, On Tue11/13/21 at 1100, Give 30 minutes prior to infusion. Given 11/13/2021 10:36 AM EDT 50 mg ferric derisomaltose 1,000 mg in NaCl 0.9% 100 mL (MONOFERRIC) 1,000 mg (set by rule on 10/26/2021 10:21 AM), INTRAVENOUS, Administer over 45 Minutes, ONCE, 1 dose, On Tue11/13/21 at 1100, Monitor patient for hypersensitivity reactions during the infusion and for 30 minutes after infusion is complete. Exp 11/13/211829 EXP: (8 HR) New Bag/Syringe/Bottle 11/13/2021 10:57 AM EDT 1,000 mg Inactive Administered Medications - up to 3 most recent administrations Medication Order MAR Action Action Date Dose Rate Site acetaminophen 650 mg tab(s) (TYLENOL) 650 mg, ORAL, ONCE, 1 dose, On Tue08/09/22 at 1100, Give 30 minutes prior to infusion. No more than 4000 mg of acetaminophen should be given per day (FROM ALL SOURCES), If ordered PRN for pain, patient/guardian may elect to receive this medication for higher pain levels INSTEAD of the opioid, if preferred: N/A Given 08/09/2022 11:07 AM EST 650 mg diphenhydrAMINE 50 mg (BENADRYL) 50 mg, ORAL, ONCE, 1 dose, On Tue08/09/22 at 1100, Give 30 minutes prior to infusion. Given 08/09/2022 11:08 AM EST 50 mg ferric derisomaltose 1,000 mg in NaCl 0.9% 100 mL (MONOFERRIC) 1,000 mg (set by rule on 07/29/2022 10:51 AM), INTRAVENOUS, Administer over 45 Minutes, ONCE, 1 dose, On 08/09/22 at 1100, Monitor patient for hypersensitivity reactions during the infusion and for 30 minutes after infusion is complete. EXP: 08/09/22 1900 RT EXP: (8 HR) New Bag/Syringe/Bottle 08/09/2022 11:43 AM EST 1,000 mg Additional Source Comments INFORMATION SOURCE (unrecogn ized section and content) DATE CREATED AUTHOR AUTHOR'S ORGANIZ ATION 10/28/2018 [facility] DATE CREATED AUTHOR AUTHOR'S ORGANIZ ATION 12/11/2020 [facility] DATE CREATED AUTHOR AUTHOR'S ORGANIZ ATION 12/11/2020 [facility] DATE CREATED AUTHOR AUTHOR'S ORGANIZ ATION 04/15/2022 [facility] DATE CREATED AUTHOR AUTHOR'S ORGANIZ ATION 12/16/2022 [facility] DATE CREATED AUTHOR AUTHOR'S ORGANIZ ATION 01/29/2023 [facility] DATE CREATED AUTHOR AUTHOR'S ORGANIZ ATION 06/02/2023 [facility] [place] [facility] DATE CREATED AUTHOR AUTHOR'S ORGANIZ ATION 06/19/2023 [facility] DATE CREATED AUTHOR AUTHOR'S ORGANIZ ATION 07/15/2023 [facility] DATE CREATED AUTHOR AUTHOR'S ORGANIZ ATION 09/19/2023 [facility] Reason for Visit (unrecogniz ed section and content) Reason Comments Cough tightness in chest, cant get a deep breath x 9 days - did have h/o body aches and fever - has had 2 neg tests; currently in isolation because of exposure and symptoms Reason Comments Generalized Body Aches x 2 weeks Fever x 2 weeks Fatigue x 2 weeks Status Reason Specialty Diagnoses / Procedures Re ferred By Contact Referred To Contact Diagnoses Iron deficiency anemia, unspecified iron deficiency anemia type Change in bowel habits Mucus in stool Bright red blood per rectum Iron deficiency anemia, unspecified iron deficiency anemia type [D50.9] Change in bowel habits [R19.4] Mucus in stool [R19.5] Bright red blood per rectum [K62.5] Procedures CA COLONOSCOPY FLX DX W/COLLJ SPEC WHEN PFRMD CA ESOPHAGOGASTRODUODENOSCOPY TRANSORAL DIAGNOSTIC Nya Fajardo MD [address] [place] [address] Reason Comments New Patient Pt stated that she h as rotating joint pain. Pt stated that the pain comes and goes. Pt also stated that when she wakes up in the moring that her right foot is swollen and the arch is raised, she said it comes and goes. Pt continues to walk on it even with the pain. Pt states that she does take tyelnol for the pain. Pt states that after awhile she has to rest because it feels broken. Pt states that she has alot of muscle pain,but after having infusions some of the muscle stop aching. Reason Comments Illness States Sore throat, fever, productive cough, runny nose, and tightness in chest, body aches and chills since Tuesday. States tested positive for covid 5 weeks ago. Is not vacc. No known exposure Specialty Diagnoses / Procedures Referred By Contterri givens Referred To Contact Diagnoses Microcytic anemia Iron deficiency anemia secondary to inadequate dietary iron intake Procedures INJECTION, FERRIC DERISOMALTOSE, 10 MG Lucy Cheung MD [address] [place] [address] [address] [facility] [address] [place] [address] Referral ID Status Reason Start Date Expiration Date V isits Requested Visits Authorized [id number] Authorized 10/26/2021 01/26/2022 3 3 Reason Comments Follow Up Reason Comments Cough 4 days. Productive c ough, fever(100.5 F). No exposure. Reason Comments Cough X 2 weeks Emesis X 2 weeks Diarrhea X 2 weeks Reason Comments Skin Lesion Right flank 0.8 Specialty Diagnoses / Procedures Referred By Contterri t Referred To Contact Dermatology Diagnoses Perspiration excessive Dionte Hoffman, DO [address] [place] [address] Vincent Mace Jr., DO [address] [place] [address] Referral ID Status Reason Start Date Expiration Date V isits Requested Visits Authorized [id number] Closed Specialty Services Required/Clarisa ent's Best Interest 04/23/2022 04/23/2023 1 1 Reason Onset Date Comments Appointment Notes 07/27/2022 Referral ID Status Reason Start Date Expiration Date V isits Requested Visits Authorized [id number] Authorized 07/29/2022 10/27/2022 1 1 Reason Comments Lab Orders Reason Comments Urinary Frequency 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 Amenorrhea Patient states her m enstrual cycle is 7-10 days late. Reason Comments Urinary Tract Infection Urinary frequenc y, pungent odor started today, would like preg test too Reason Comments Annual Exam School PEs Reason Comments Toe Injury Door ripped toenail up today at [facility] Reason Comments Results Source Comments (unrecognize d section and content) In the event this informatio n is protected by the Federal Confidentiality of Alcohol and Drug Abuse Patient Records regulations: The Federal rules restrict any use of the information to criminally investigate or prosecute any alcohol or drug abuse patient.[facility] the event this information is protected by the Federal Confidentiality of Alcohol and Drug Abuse Patient Records regulations: The Federal rules restrict any use of the information to criminally investigate or prosecute any alcohol or drug abuse patient.[facility] Hospital[facility] the event this information is protected by the Federal Confidentiality of Alcohol and Drug Abuse Patient Records regulations: The Federal rules restrict any use of the information to criminally investigate or prosecute any alcohol or drug abuse patient.[facility] Hospital[facility] the event this information is protected by the Federal Confidentiality of Alcohol and Drug Abuse Patient Records regulations: The Federal rules restrict any use of the information to criminally investigate or prosecute any alcohol or drug abuse patient.[facility] Hospital[facility] the event this information is protected by the Federal Confidentiality of Alcohol and Drug Abuse Patient Records regulations: The Federal rules restrict any use of the information to criminally investigate or prosecute any alcohol or drug abuse patient.[facility] Hospital[facility] the event this information is protected by the Federal Confidentiality of Alcohol and Drug Abuse Patient Records regulations: The Federal rules restrict any use of the information to criminally investigate or prosecute any alcohol or drug abuse patient.[facility] Hospital[facility] the event this information is protected by the Federal Confidentiality of Alcohol and Drug Abuse Patient Records regulations: The Federal rules restrict any use of the information to criminally investigate or prosecute any alcohol or drug abuse patient.[facility] HospitalIn the event this information is protected by the Federal Confidentiality of Alcohol and Drug Abuse Patient Records regulations: The Federal rules restrict any use of the information to criminally investigate or prosecute any alcohol or drug abuse patient.[facility] Hospital[facility] the event this information is protected by the Federal Confidentiality of Alcohol and Drug Abuse Patient Records regulations: The Federal rules restrict any use of the information to criminally investigate or prosecute any alcohol or drug abuse patient.[facility] Hospital[facility] the event this information is protected by the Federal Confidentiality of Alcohol and Drug Abuse Patient Records regulations: The Federal rules restrict any use of the information to criminally investigate or prosecute any alcohol or drug abuse patient.[facility] Care Teams (unrecognized sec tion and content) Cathodic Protection Technician Relationship Specialty Start Date End Date Dionte Hoffman [address] [place] [address] PCP - General Family Practice 09/04/20 Self Referring 09/04/20 Food Packer, Nya [address] [place] [address] General Surgery 11/18/20 Cathodic Protection Technician Relationship Specialty Start Date End Date Dionte Hoffman [address] [place] [address] PCP - General Family Practice 09/04/20 Self Referring 09/04/20 Nya Fajardo [address] [place] [address] General Surgery 11/18/20 Cathodic Protection Technician Relationship Specialty Start Date End Date Dionte Hoffman DO [address] [place] [address] PCP - General Family Medicine 07/05/16 Cathodic Protection Technician Relationship Specialty Start Date End Date Dionte Hoffman DO [address] [place] [address] PCP - General Family Medicine 07/05/16 Cathodic Protection Technician Relationship Specialty Start Date End Date Dionte Hoffman DO [address] [place] [address] PCP - General Family Medicine 07/05/16 Cathodic Protection Technician Relationship Specialty Start Date End Date Dionte Hoffman DO [address] [place] [address] PCP - General Family Medicine 07/05/16 Cathodic Protection Technician Relationship Specialty Start Date End Date Dionte Hoffman [address] [place] [address] PCP - General Family Medicine 09/04/20 Self Referring 09/04/20 Nya Fajardo [address] [place] [address] General Surgery 11/18/20 Cathodic Protection Technician Relationship Specialty Start Date End Date Dionte Hoffman [address] [place] [address] PCP - General Family Medicine 09/04/20 Self Referring 09/04/20 Nya Fajardo [address] [place] [address] General Surgery 11/18/20 Cathodic Protection Technician Relationship Specialty Start Date End Date Dionte Hoffman DO [address] [place] [address] PCP - General Family Medicine 02/10/21 Cathodic Protection Technician Relationship Specialty Start Date End Date Dionte Hoffman [address] [place] [address] PCP - General Family Medicine 09/04/20 Self Referring 09/04/20 Nya Fajardo [address] [place] [address] General Surgery 11/18/20 Cathodic Protection Technician Relationship Specialty Start Date End Date Dionte Hoffman DO [address] [place] [address] PCP - General Family Medicine 07/05/16 Cathodic Protection Technician Relationship Specialty Start Date End Date Dionte Hoffman DO [address] [place] [address] PCP - General Family Medicine 07/05/16 Cathodic Protection Technician Relationship Specialty Start Date End Date Dionte Hoffman DO [address] [place] [address] PCP - General Family Medicine 07/05/16 Cathodic Protection Technician Relationship Specialty Start Date End Date Dionte Hoffman DO [address] [place] [address] PCP - General Family Medicine 07/05/16 Cathodic Protection Technician Relationship Specialty Start Date End Date Dionte Hoffman DO [address] [place] [address] PCP - General Family Medicine 07/05/16 Cathodic Protection Technician Relationship Specialty Start Date End Date Dionte Hoffman [address] [place] [address] PCP - General Family Medicine 09/04/20 Self Referring 09/04/20 Nya Fajadro [address] [place] [address] [address] General Surgery 11/18/20 Cathodic Protection Technician Relationship Specialty Start Date End Date Dionte Hoffman [address] [place] [address] PCP - General Family Medicine 09/04/20 Self Referring 09/04/20 Nya Fajardo [address] [facility] [address] [place] [address] General Surgery 11/18/20 FOR RECORDS PERTAINING TO PATIENTS WHO ARE OR HAVE BEEN ENROLLED IN A CHEMICAL DEPENDENCY/SUBSTANCEABUSE PROGRAM, SOME INFORMATION MAY BE OMITTED. This clinical summary was aggregated from multiple sources. Caution should be exercised in using it in the provision of clinical care. This summary normalizes information from multiple sources, and as a consequence, information in this document may materially change the coding, format and clinical context of patient data. In addition, data may be omitted in some cases. CLINICAL DECISIONS SHOULD BE BASED ON THE PRIMARY CLINICAL RECORDS. [employer] provides no warranty or guarantee of the accuracy or completeness of information in this document.
== END | disposition home or self-care (01) ==
LOC: US 15:57
PROVIDERS: Referring Provider Obstetrics & Gynecology; Visit Provider Obstetrics & Gynecology
DX: N93.9 Abnormal uterine and vaginal bleeding, unspecified (principal)
CPT/HCPCS: 76830; 76856

== ENCOUNTER 2024-08-07 14:25 | Observation (INO) | payer MEDICAID, SELFPAY ==
[2024-08-04 11:04] LABS: Hematocrit 41.1 % (37-47); Hemoglobin 13.4 g/dL (12.0-15.0); Mean Corp Hgb Conc 32.6 g/dL (32-36); Mean Corpuscular Hgb 28.7 pg (27.0-32.0); Platelet Count 277 K/mm3 (150-450); RBC Distribution Width CV 12.7 % (11.6-14.6); RBC Distribution Width SD 41.1 fl (35.1-43.9); Red Blood Count 4.67 M/mm3 (4.2-5.4); White Blood Count 7.9 K/mm3 (4.4-11.0)
[2024-08-04 11:27] LABS: Magnesium 2.3 mg/dL (1.6-2.6)
[2024-08-07] VITALS (17 sets, daily range): BP systolic 113–129; BP diastolic 68–90; PULSE 67–102; RESP 16–18; TEMP 36.4–37.2; O2SAT 95–100; BMI 25.3; BMI 25.2
[2024-08-07 06:33] LABS: Internal QC Validated? YES +Cl - CLEAR BKGD; Pregnancy, Urine Negative Negative
[2024-08-07] MEDS: 0.9% Normal Saline (1000mL) 1,000 ML 15 ML IV ×2 (06:50→14:59)
[2024-08-07] MEDS: Magnesium 1 GM over 15 mins IV (06:51)
[2024-08-07] MEDS: Celecoxib 200 MG Capsule 400 MG PO (06:54)
[2024-08-07] MEDS: Gabapentin 600 MG Tablet PO (06:55)
[2024-08-07] MEDS: Scopolamine 1mg/72hr Patch 1 PATCH TD (06:55)
[2024-08-07] MEDS: Phenazopyridine 95 MG Tablet 190 MG PO (06:55)
[2024-08-07] MEDS: Acetaminophen 500 MG Tablet 1000 MG PO ×4 (06:55→23:36)
--- NOTE | 2024-08-07 06:55 | HP.PCM_ITS ---
History and Physical Date of Admission: 08/07/24 [facility] [address], [address] [place] [address] OFFICE VISIT Date of Service: 06/28/24 MR#: [id number] Acct: [id number] Name: LULU ANGULO Rep #: [id number] : 1990 Provider: Dr. 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 Required: No Is patient in pain?: No Allergies No Known Allergies Allergy (Verified 06/28/24 15:17) Medications ?Medication ?Instructions ?Recorded ?Confirmed ?Type iron infusions IV 01/21/21 06/28/24 History Is last menstrual period known: Yes Last Menstrual Period: 06/14/24 Post menopausal: No Patient : No : No [facility] Medical History Iron deficiency anemia Abnormal Pap smear of cervix Surgical History History of esophagogastroduodenoscopy (EGD) S/P Family History Grandfather Heart diseaseMother Thyroid disorderGrandmother Leukemia Social History number of children: 4 current occupational status: employed current occupation: Formerly [employer] in [place] Smoking Status: Never smoker alcohol intake: never substance use type: does not use caffeine: Yes (rarely) what type of physical activity do you participate in: none seatbelt use: always do you feel safe at home: Yes additional social history: - 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 she has tried patches and the nuvaring, depo provera, she has expelled 2 progestin IUDs. she has signifcant cramping and pain. she gets IV iron transfusions with her staking technician. she was told she has iron deficiency anemia from her periods because of it. pap and EMB WNL, getting labs at outside hospital. Female Reproductive History Last Menstrual Period: 06/14/24 Menopausal Symptoms: No night sweats History 6 Elective abortions Hx Para 4 Spontaneous abortions 2 Hx # Term Pregnancies Ectopic pregnancies Hx # Pregnancies Multiple births # of living children 3 Past Pregnancies Del. Date Name GA/Weeks Outcome Route Bth Weight Infant Gen Labor Lgth Anesthesia Del Locatn Provider FOB 12/18/14 Damián live - full term N Male [facility] Dr. Tang 05/20/16 Janeth live - C- section Female [facility] 03/03/18 Allyson 37 live - full term VB AC Female epidural [facility] 03/15/19 Lilibeth 35 live - Male [facility] Dr. Dixon Delivery Date: 03/03/18 Last Updated by: Teressa Mayfield w/SI PreEclampsia Delivery Date: 03/15/19 Last Updated by: Cecile Mckeon Severe pre-eclampsia, PTL, uterine atony ROS Const Constitutional: Denies fatigue, night sweats, weight gain or weight loss ENT ENT: Reports system reviewed and no additional complaints, except as documented Cardio Card: Denies chest pain Resp Resp: Denies cough or dyspnea GI GI: Reports as per HPI; Denies abdominal pain, constipation, nausea or vomiting : Reports urinary incontinence; Denies nipple discharge, urinary frequency, urinary hesitancy, urinary urgency, vaginal discharge, vaginal dryness, vaginal odor or vaginal pruritus Musc Musc: Denies arthralgias, back pain or muscle weakness Skin Skin/Breast: Denies alopecia, change in hair, dry skin, breast mass, breast pain, breast skin changes or nipple discharge Neuro Neuro: Reports system reviewed and no additional complaints, except as documented Psych Psych: Reports system reviewed and no additional complaints, except as doc umented Endo Endo: Denies cold intolerance, excessive sweating, heat intolerance or polydipsia Sesar/Lymph Hematologic/Lymphatic: Denies easy bleeding, Denies easy bruising and Denies lymphadenopathy Exam Const General: cooperative, healthy appearing, comfortable and no acute distress Orientation: alert [facility] Head: normal to inspection and normocephalic Ears: hearing grossly normal bilaterally and external ears normal Nose: external nose normal and nares normal Face and sinus: normal facial exam Neck Neck: normal visual inspection and no lymphadenopathy Thyroid: thyroid normal Chest Chest palpation & inspection: normal inspection of the chest Resp Effort & Inspection: normal respiratory effort Auscultation: clear to auscultation bilaterally Cardio Rate: regular rate Rhythm: regular rhythm Heart Sounds: S1 normal and S2 normal GI Inspection: normal to inspection and non-distended Palpation: soft and no hepatosplenomegaly Musc Other: gross motor intact no deficits, full bilateral strength Skin General: no rashes or lesions noted Neuro General: patient alert, patient awake, moves all extremities and no focal motor deficits Motor: muscle tone normal throughout Extrem General: normal to inspection and no pedal edema Psych Appearance: grossly normal Mental Status: mental status grossly normal Affect: normal affect Speech and Movement: speech and movement normal Coding Level of Care Code Off vis,est,level 4 Diagnoses Abnormal uterine bleeding N93.9 Assessment and Plan Assessment and Plan (1) Abnormal uterine bleeding: Status: Acute Comment: iron deficiency anemia being treated by hematology. s/p IUD expulsion, failed hormonal control. discussed lysteda or LAVHBS. emb done and recommend US. Plan Problem list updated and treatment plans were reviewed with the patient and relevant educational handouts given. See problem list details for specific plan information. After discussing the patient's diagnosis and treatment plan options, patient wishes to proceed with surgical management. I have discussed with the patient the risks, benefits, and alternatives of the procedure which include but are not limited to risks of anesthesia, bleeding, infection, possible damage to bowel, bladder, or surrounding vasculature which could lead to additional surgery to evaluate any complications. Patient agrees to procedure and wishes to proceed. ACOG/uptodate references given for additional information regarding procedure. UPDATE- I have seen the patient and performed any clinically relevant updates to the history and physical exam. Marlene Dixon MD
[2024-08-07] MEDS: Enoxaparin 40 MG/0.4 ML Syringe SC (07:01)
--- NOTE | 2024-08-07 07:11 | PCM.PRE.AN2 ---
ASA Classification* ASA Classification ASA Classification: 2 Assessment & Plan Anesthesia* Anesthesia Assessment Anesthesia Assessment: Discussed sedation and/or anesthesia options, risks, benefits, and alternatives with patient/parents/legal guardian/POA. Questions invited. The patient/parents/legal guardian/POA seems to understand and agrees to proceed with anesthesia plan. Reviewed the physical assessment, medical history, allergy history and patient home medications list prior to surgery/procedure/anesthetic and documented any changes. Performed airway and anesthesia risk assessments. Anesthesia Type Anesthesia Type: General Anesthesia Focused Assessment* Airway Assessment Mouth opens: >3 cm Mallampati Score: II Focused Labs Anesthesia Preop lab: CBC WBC 7.9 K/mm3 (4.4-11.0) 08/04/24 10:39 RBC 4.67 M/mm3 (4.2-5.4) 08/04/24 10:39 Hgb 13.4 g/dL (12.0-15.0) 08/04/24 10:39 Hct 41.1 % (37-47) 08/04/24 10:39 Plt Count 277 K/mm3 (150-450) 08/04/24 10:39 CHEMISTRY Potassium 3.8 mmol/L (3.5-5.1) 03/20/19 12:55 Sodium 144 mmol/L (136-145) 03/20/19 12:55 Magnesium 2.3 mg/dL (1.6-2.6) 08/04/24 10:39 BUN 10 mg/dL (7-18) 03/20/19 12:55 Creatinine 0.98 mg/dL (0.55-1.02) 03/20/19 12:55 Glucose 78 mg/dL (74-106) 03/20/19 12:55 COAG PT 12.3 SECONDS (11.7-14.9) 03/15/19 14:35 Urine Test Negative Negative 08/07/24 06:20 Tst Clinic Negative 05/28/21 11:30 Pre-Assessment Diagnosis/Proposed Procedure Planned Operative Procedure(s): Hysterectomy,LAVH, Bilateral Salpingectomy Anesthesia History Anesthesia History - project management intern: Anesthesia History - project management intern Hx Hospitalization No 07/24/24 08:38 Any Problems With Anesthesia No 07/24/24 08:38 Cholinesterase deficiency No 07/24/24 08:38 You/Your Family Experience No 07/24/24 08:38 fever (hyperthermia) with Relationship Recent Exposure to Contagious No 08/07/24 06:48 Disease Does patient have nerve No 07/24/24 08:38 stimulator Patient instructed to have device shut off --Does patient have Pacemaker or ICD? When Was Last Pacemaker Check QUESTION #4 FULL TEXT: You/Your Family Experience fever (hyperthermia) with Anesthesia Last Oral Intake Last Oral intake: Last Oral Intake NPO since Meds taken in AM with sips of water? Meds patient instructed to take am of surgery PONV PONV - project management intern: PONV - project management intern Female Yes 07/24/24 08:38 HX of Motion Sickness Yes 07/24/24 08:38 HX of N/V After Surgery No 07/24/24 08:38 Non-Smoker Yes 07/24/24 08:38 Duration of Surgery greater Yes 07/24/24 08:38 than 60 minutes Number of Risk Factors 4 07/24/24 08:38 PONV Score Severe Risk 07/24/24 08:38 Height & Weight Height & Weight: Anesthesia: Height & Weight Height 5 ft 4 in 08/06/24 09:26 Weight: 61.235 kg 08/06/24 09:26 Respiratory Assessment Respiratory Assessment - project management intern: Respiratory Tract Infection Hx - project management intern Hx Respiratory Tract Infection No 07/24/24 08:38 STOP Sleep Apnea STOP Sleep Apnea - project management intern: STOP Sleep Apnea - project management intern Hx Hypertension No 07/24/24 08:38 Hx Sleep Apnea No 07/24/24 08:38 CPAP BIPAP Do you snore loudly (louder No 07/24/24 08:38 than talking or can be heard Do you often feel tired/ No 07/24/24 08:38 fatigued/ sleepy during daytime? Has anyone observed you stop No 07/24/24 08:38 breathing during sleep? STOP Results Negative 07/24/24 08:38 QUESTION #5 FULL TEXT : Do you snore loudly (louder than talking or can be heard through closed doors)? 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 Specify any problems Hx of Preganancy in last 3 No 07/24/24 08:38 Months Nurse Filling Out Transfusion VCHRISTIN 07/24/24 08:38 & Questions: Date: 07/24/24 07/24/24 08:38 Time: 08:39 07/24/24 08:38 Patient unable to answer at this time (ie. confused, unrespo /Reproduction History /Reproductive History - project management intern: /Reproductive Hx- project management intern Hx Now No 07/24/24 08:38 Gestational Age (in weeks): EDC: Hx Hx Para Hx Section SAB No 07/24/24 08:38 Active Medications Active Medications: Current Medications Generic Name Dose Route Start Last Admin Trade Name Freq PRN Reason Stop Dose Admin Acetaminophen 1,000 mg 08/07/24 08:15 08/07/24 06:55 Acetaminophen 500 Mg Tablet PO 08/07/24 08:16 1,000 mg PREOP ONE Administration Celecoxib 400 mg 08/07/24 08:15 08/07/24 06:54 Celecoxib 200 Mg Capsule PO 08/07/24 08:16 400 mg X1 ONE Administration Enoxaparin Sodium 40 mg 08/07/24 08:15 08/07/24 07:01 Enoxaparin 40 Mg/0.4 Ml Syringe SC 08/07/24 08:16 40 mg X1 ONE Administration Gabapentin 600 mg 08/07/24 08:15 08/07/24 06:55 Gabapentin 600 Mg Tablet PO 08/07/24 08:16 600 mg PREOP ONE Administration Lactated Ringer's 1,000 mls @ 40 mls/hr 08/07/24 08:15 IV .Q25H MARYAM Cefazolin Sodium 2 gm/ N/A 20 mls @ 400 mls/hr 08/07/24 08:15 IV 08/07/24 08:17 PREOP ONE Magnesium Sulfate 1 gm/ 102 mls @ 408 mls/hr 08/07/24 08:15 08/07/24 06:51 Dextrose IV 08/07/24 08:29 408 mls/hr X1 ONE Administration Sodium Chloride 1,000 mls @ 15 mls/hr 08/07/24 06:25 08/07/24 06:50 IV 08/12/24 19:44 15 mls/hr .Q48H MARYAM Administration Protocol Insulin Human Lispro 0 unit 08/07/24 08:15 Insulin Lispro 100 Unit/Ml Insuln.Pen SC 08/07/24 18:00 Q4H PRN PRN BG >/= 180, SEE PROTOCOL Protocol Ondansetron HCl 4 mg 08/07/24 08:15 Ondansetron 4 Mg/2 Ml Vial IV 08/07/24 08:16 X1 ONE Phenazopyridine HCl 190 mg 08/07/24 08:15 08/07/24 06:55 Phenazopyridine 95 Mg Tablet PO 08/07/24 08:16 190 mg X1 ONE Administration Scopolamine HBr 1 patch 08/07/24 08:15 08/07/24 06:55 Scopolamine 1mg/72hr Patch TD 08/07/24 08:16 1 patch X1 ONE Administration PFSH Medical History Pre-op testing Wears glasses Alcohol use History of steroid therapy Anemia Family history of eosinophilic esophagitis Difficulty swallowing History of ulceration Non-smoker Asthma Iron deficiency anemia Abnormal Pap smear of cervix Home Medications ?Medication ?Instructions ?Recorded ?Last Taken ?Type elderberry fruit 50 mg/5 mL oral 50 mg PO .QOD 07/24/24 Unknown History syrup Allergy/AdvReac Type Severity Reaction Status Date / Time Environmental Allergies: Allergy Severe RASH Verified 07/24/24 08:26 Uncoded (pine) latex Allergy Severe Other Verified 07/24/24 08:26 Family History Grandfather Heart disease Mother Thyroid disorder Grandmother Leukemia Surgical History History of removal of skin mole History of esophagogastroduodenoscopy (EGD) S/P Social History number of children: 4 current occupational status: employed current occupation: [employer] Smoking Status: Never smoker alcohol intake: never substance use type: does not use caffeine: Yes (rarely) what type of physical activity do you participate in: none seatbelt use: always do you feel safe at home: Yes 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
[2024-08-07 07:37] LABS: Bedside Glucose 106 mg/dL (74-106)
--- NOTE | 2024-08-07 08:15 | HYST_PTH ---
PATIENT: LULU ANGULO LOC: MS3 U#:[id number] AGE/SX: 34/F [place] [facility] [place]: Dr. Marlene Dixon MD : 1990 BED: 1 DIS: 08/08/2024 SPEC #: [id number] RECD: 08/07/24 11:01 STATUS: ADAM JENKINSKathi #: [id number] NATHALY: 08/07/24 08:[address]: Marlene Dixon DEPT: SURGICAL PATHOLOGY RECD BY: Radha Estrada Tissues: Uterus, NOS Procedures: Surgery Specimen Level V HEADER OPERATION: Hysterectomy, LAVH, bilateral salpingectomy, cystoscopy PRE-OP DIAGNOSIS: Abnormal uterine bleeding, anemia TISSUE SUBMITTED: Cervix, uterus, bilateral fallopian tubes MICROSCOPIC DIAGNOSIS Uterus, hysterectomy: Cervix - Mild chronic inflammation. Endometrium - Proliferative endometrium. Myometrium - Focal superficial adenomyosis. Right fallopian tube- Benign paratubal cyst. Left fallopian tube- Benign paratubal cyst. 08/08/2024 MICROSCOPIC DESCRIPTION Slides are reviewed. GROSS DESCRIPTION Received in fixative is one container labeled with the patient's name and designated uterus, cervix, bilateral fallopian tubes. The specimen consists of a hysterectomy specimen consisting of uterus, cervix, and attached bilateral fallopian tubes. The uterus with cervix weighs 85 gm and measures 8.5 x 6.5 x 4.0 cm. The serosal surface is arredondo glistening. The ectocervical mucosa is unremarkable. The external os is oval and patchoulols in contour. The endocervical canal measures 3.5 cm in length and the endocervical mucosa is arredondo glistening and unremarkable. The triangular endometrial cavity measures 4.5 cm in length and 3.0 cm in width. The endometrium is arredondo, glistening without any mass lesions and measures 0.2 cm in thickness. Sections of the myometrial wall does not reveal any mass lesions and measures up to 2.0cm in thickness. Right fallopian tube measures 5.5cm in length and up to 1.0cm in diameter. Fimbrial end is identified. Sections reveal unremarkable cut surfaces. A paratubal cyst is noted measuring 1.3cm in greatest dimension and filled with clear fluid. Left fallopian tube is similar in appearance to right and measures 6.0cm in length and 0.6cm in diameter. A paratubal cyst is noted measuring 1.7cm in greatest dimension and is filled with clear fluid. Life Skills Educator sections are submitted in eight cassettes as follows: 1 - anterior cervix, 2 - posterior cervix, 3 & 4 - anterior uterine wall, 5 & 6 - posterior uterine wall, 7- right fallopian tube and paratubal cyst, 8- left fallopian tube and paratubal cyst. SJ: 08/07/2024 TC:5 CPT: 58415
[2024-08-07] MEDS: Cefazolin 2 GM in Syringe IV (08:30)
[2024-08-07] MEDS: Vasopressin 20 UNITS/ML Vial (09:39)
[2024-08-07] MEDS: Ondansetron 4 MG/2 ML Vial IV (10:27)
[2024-08-07] MEDS: Bupivacaine 0.25% 30 ML Vial (10:34)
[2024-08-07] MEDS: Ketorolac 30 MG/ML Syringe IV ×3 (11:09→23:36)
--- NOTE | 2024-08-07 11:52 | PCM.POST.ANE ---
Anesthesia: Postop Eval I Current Vital Signs Temperature: 97.5 F Pulse Rate: 79 Blood Pressure: 121/90 Respiratory Rate: 16 Pulse Ox: 100 Oxygen Delivery Method: Room Air Assessment Airway patent: Yes Spontaneous unlabored respirations: Yes Mental status: Awake and Calm nausea: No Vomiting: No Anesthesia Complication: No Fluid Hydration Crystalloid volume administer (ml): 1,200 Total IV fluid infused: 1,200 Progress Note Anesthesia document: Postop Eval 1 completed: Yes
--- NOTE | 2024-08-07 12:43 | POSTOPAN2_ITS ---
Anesthesia Postop Eval I Sum Postop Eval Completion status Anesthesia document: Postop Eval 1 completed: Yes Anesthesia Postop Eval I Summary Anesthesia Postop Eval I Summary: Anesthesia Postop Eval I: Assessment Summary Airway patent Yes 08/07/24 11:53 REFERENCE AND INSTRUCTION [email or web address] Spontaneous unlabored Yes 08/07/24 11:53 REFERENCE AND INSTRUCTION [email or web address] respirations Mental status Awake,Calm 08/07/24 11:53 REFERENCE AND INSTRUCTION [email or web address] nausea No 08/07/24 11:53 REFERENCE AND INSTRUCTION [email or web address] Vomiting No 08/07/24 11:53 REFERENCE AND INSTRUCTION [email or web address] Anesthesia Postop Eval I: Fluid Summary Crystalloid volume administer 1,200 08/07/24 11:53 REFERENCE AND INSTRUCTION [email or web address] (ml) Colloids volume administered ( ml) Blood Product volume administered (ml) Total IV fluid infused 1,200 08/07/24 11:53 REFERENCE AND INSTRUCTION [email or web address] Anesthesia Postop Eval I: Summary Notes Anesthesia Complication No 08/07/24 11:53 REFERENCE AND INSTRUCTION [email or web address] Anesthesia Complication Comment: Post-operative progress note Anesthesia: Postop Eval II Evaluation Mental status: Awake Pain Level: 0 nausea: No Vomiting: No
--- NOTE | 2024-08-07 12:43 | PCM.POSTANE2 ---
Anesthesia Postop Eval I Sum Postop Eval Completion status Anesthesia document: Postop Eval 1 completed: Yes Anesthesia Postop Eval I Summary Anesthesia Postop Eval I Summary: Anesthesia Postop Eval I: Assessment Summary Airway patent Yes 08/07/24 11:53 [email or web address] Spontaneous unlabored Yes 08/07/24 11:53 [email or web address] respirations Mental status Awake,Calm 08/07/24 11:53 [email or web address] nausea No 08/07/24 11:53 [email or web address] Vomiting No 08/07/24 11:53 [email or web address] Anesthesia Postop Eval I: Fluid Summary Crystalloid volume administer 1,200 08/07/24 11:53 [email or web address] (ml) Colloids volume administered ( ml) Blood Product volume administered (ml) Total IV fluid infused 1,200 08/07/24 11:53 [email or web address] Anesthesia Postop Eval I: Summary Notes Anesthesia Complication No 08/07/24 11:53 [email or web address] Anesthesia Complication Comment: Post-operative progress note Anesthesia: Postop Eval II Evaluation Mental status: Awake Pain Level: 0 nausea: No Vomiting: No
[2024-08-07] MEDS: oxyCODONE 5 MG Tablet PO ×3 (13:21→18:12)
--- NOTE | 2024-08-07 13:27 | DCINST_ITS ---
Discharge Instructions Diet Discharge Diet: No restrictions DC O2, CPAP, BIPAP needs Additional Home O2 Discharge instructions: No Dressing / Incision May resume sexual activity in: 6 weeks Weight Bearing Status: Full weight bearing Dressing / Incision Call your doctor if your incision/area has: Continuous Slow Oozing, Sudden Increased Bleeding, Increased Pain/ Swelling, Increased Redness and Foul Smelling Discharge Call your doctor if you observe: Fever of 101 or Higher, Using more than 1 pad per hour, Shortness of breath, Chest pain and Uncontrolled pain Suture Line Care: Avoid Pulling/Pushing and Avoid Pinching/Bending Remove Dressing in: 1 week (if present) Cleanse incision/area with: Soap & Water and Keep Dressing Clean & Dry Follow Up Care Please Follow Up With: Marlene Dixon MD When: Call to make an appointment with your doctor for a postop visit in 2 and 6 weeks. Test Results: Test results from this visit will be discussed in further detail at your follow- up appointment, if applicable. Discharge Plan Admission Attending Provider: Marlene Dixon Primary Care Provider: DIONTE AECVEDO Instructions Print Language: Swedish Discharge Orders/Prescriptions Prescriptions: New hydrocodone-acetaminophen 5-325 mg tablet 1 tab PO Q6H PRN (Reason: pain) 5 Days Qty: 20 0RF naproxen 500 mg tablet 500 mg PO BID PRN PRN (Reason: Pain) Qty: 30 1RF No Action elderberry fruit 50 mg/5 mL syrup 50 mg PO .QOD Disposition Disposition (needs filled in before D/C Order can be placed): Home, Self Care
--- NOTE | 2024-08-07 13:27 | PCM.OPRPT ---
Problems Associated Problem List Diagnoses (1) Abnormal uterine bleeding: Procedures Urinary/Genital [id number]: [id number] LAVH+BS/O <250gr Uterus Operative Report (Standard) Operative Information Date of Procedure: 08/07/24 Pre-Operative Diagnosis: see problem list Post-Operative Diagnosis: same Surgery/Procedure Performed: laparoscopic assisted vaginal hysterectomy bilateral salpingectomy airport operations officer: Yes Insulation And Flooring Assembler: Ari Mohan Tasks completed by surgical first assistant: Opening & closing, Trocar and Retracting Additional business support assistant?: No Type of Anesthesia: General RN Documented Start/Stop Times: Operation Date: 08/07/24 08:15 Case Time Into Pre-Op 08/07/24 06:19 Out of Pre-Op 08/07/24 08:19 Anesthesia Start 08/07/24 08:23 Into Room 08/07/24 08:23 Procedure Start 08/07/24 08:50 Procedure End 08/07/24 10:36 Anesthesia End 08/07/24 10:49 Out of Room 08/07/24 10:49 Into Recovery 08/07/24 10:51 Out of Recovery 08/07/24 13:02 Into Phase II Recovery 08/07/24 13:03 Out of Phase II 08/07/24 15:01 Procedure Start Time: 08:50 Procedure Stop Time: 10:36 Select all DRAINS/GRAFTS/IMPLANTS that apply: Drains (roche) Drain details: roche removed at the end of the procedure Estimated Blood Loss: 300 Fluids Replaced: crystalloid Specimen collected: Yes Description of specimen(s) removed: uterus and tubes Description of surgery: Patient received preoperative antibiotics and SCDs were on preoperatively. Patient was taken back to the operating room and placed in the dorsal lithotomy position. General anesthesia was induced and patient was prepped and draped in normal sterile fashion. Uterine manipulator was placed inside the uterus and Roche catheter placed in the bladder. The umbilicus was grasped with towel clamps and an intraumbilical incision was made after injecting with quarter percent Marcaine and a Veress needle entered into the abdomen confirmed to be intra-abdominal with a low opening pressure. Abdomen was insufflated with CO2 gas and the Veress needle removed and the 5 mm trocar was placed under direct visualization without complication. Right and left lower quadrants were transilluminated and injected with quarter percent Marcaine and 5 mm ports placed under direct visualization. Pelvis was well visualized see operative findings for additional information. Bilateral fallopian tubes were identified and transected with the LigaSure device across the mesosalpinx to the level of the utero-ovarian ligament which was also transected with the LigaSure device. The broad ligament was opened up by transecting the round ligament bilaterally and skeletonizing the uterine vessels bilaterally, increased scar tissue on the right side and increased vascularity bilaterally, moreso on the left, and creating a bladder flap using the LigaSure device. The uterine arteries were transected bilaterally with good visualization of the bladder and the ureters were seen to be inferior lateral to the operative area. Attention was then paid to the vaginal portion of the procedure and the cervix was grasped with Mariah clamps and circumferentially injected with dilute vasopressin. A circumferential incision was made and the vaginal mucosa was mobilized off posteriorly and the cul-de-sac entered into sharply and a longneck speculum placed. The anterior cul-de-sac was then identified and entered into sharply. The uterosacral ligaments were clamped cut and suture ligated with 0 Monocryl bilaterally followed by the cardinal ligaments which were clamped cut and suture ligated bilaterally with 0 Monocryl. The uterus serially descended and was removed without difficulty with minimal morcellation. Pelvic sidewall pedicles were checked and noted to have excellent hemostasis. The vaginal mucosa was reapproximated incorporating the posterior peritoneum. This was reapproximated using 0 Vicryl [id number] sutures. Excellent hemostasis was noted. Attention paid to the abdominal portion of the procedure again. The pelvis and cul-de-sac was well visualized and no significant active bleeding noted. Pressure was taken down and the areas visualized and noted of excellent hemostasis. All ports were removed under direct visualization without complication and the abdomen was desufflated of air. The instruments removed from the abdomen and the vagina vaginal sweep was negative. Port sites on the abdomen were closed with 4-0 Monocryl interrupted sutures and Steri's and windows were applied. She was awoken and taken recovery in stable condition. Surgical Findings: pelvic congestion Complications Complications: No
[2024-08-07 14:13] LABS: Hematocrit 38.5 % (37-47); Hemoglobin 12.6 g/dL (12.0-15.0); Mean Corp Hgb Conc 32.7 g/dL (32-36); Mean Corpuscular Volume 88.5 fL (81-99); POSITIVE DIFFERENTIAL YES; Platelet Count 272 K/mm3 (150-450); RBC Distribution Width CV 12.5 % (11.6-14.6); RBC Distribution Width SD 40.7 fl (35.1-43.9); Red Blood Count 4.35 M/mm3 (4.2-5.4)
[2024-08-07] MEDS: HYDROmorphone 1 MG/ML Syringe IV (15:31)
[2024-08-07] MEDS: Lactated Ringers 1,000 ML 40 ML IV (16:02)
[2024-08-07] MEDS: Docusate Sodium 100 MG Capsule PO (19:48)
[2024-08-08] VITALS: BP 120/70; PULSE 82; RESP 16; TEMP 36.6; O2SAT 98
[2024-08-08] MEDS: oxyCODONE 5 MG Tablet PO ×2 (02:13→08:16)
[2024-08-08 04:00] VITALS: BP 105/69; PULSE 84; RESP 16; TEMP 36.6; O2SAT 98
[2024-08-08] MEDS: Ketorolac 30 MG/ML Syringe IV (05:24)
[2024-08-08] MEDS: Acetaminophen 500 MG Tablet 1000 MG PO (06:11)
[2024-08-08 08:15] VITALS: BP 104/65; PULSE 72; RESP 16; TEMP 36.6; O2SAT 96
--- NOTE | 2024-08-08 08:35 | PCM.PN.OB ---
Subjective Subjective Patient doing well without complaints. Tolerating PO. Ambulating without difficulty. Denies chest pain, shortness of breath, calf pain/swelling, fevers, chills, lightheadedness. Objective Data Objective Data Vital Signs: Vital Signs Temp Pulse Resp BP Pulse Ox O2 Del Method O2 Flow Rate 97.8 F 72 16 104/65 96 Room Air 4 08/08/24 08:15 08/08/24 08:15 08/08/24 08:15 08/08/24 08:15 08/08/24 08:15 08/08/24 08:15 08/07/24 12:45 Oxygen Flow Rate (L/min) 4 Oxygen Delivery Method Room Air Weight: 147 lb 11.355 oz Body Mass Index (BMI) 25.2 Intake & Output: Intake and Output for Last 24 Hours 08/06/24 08/07/24 08/08/24 23:59 23:59 23:59 Intake Total 2722 / 2722 748 / 748 Output Total 400 / 400 Balance 2322 / 2322 748 / 748 Lab / Micro Data 08/07/24 14:05 Labs: Laboratory Results - last 24 hr 08/07/24 14:05: WBC 17.0 H, RBC 4.35, Hgb 12.6, Hct 38.5, MCV 88.5, MCH 29.0, MCHC 32.7, RDW Std Deviation 40.7, RDW Coeff of Letty 12.5, Plt Count 272, MPV 10.0 ROS Constitutional Constitutional: Reports systems reviewed and no addt'l complaints, except as documented Cardiovascular Cardiovascular: Reports systems reviewed and no addt'l complaints, except as documented Respiratory/Chest Respiratory/Chest: Reports systems reviewed and no addt'l complaints, except as documented Gastrointestinal Gastrointestinal: Reports systems reviewed and no addt'l complaints, except as documented Physical Exam Const alert, oriented x3 and no apparent distress HEENT Head and Scalp: atraumatic Resp normal respiratory effort GI soft to palpation and non-tender Assessment & Plan (1) Abnormal uterine bleeding: COMMENT: iron deficiency anemia being treated by hematology. s/p IUD expulsion, failed hormonal control. discussed lysteda or LAVHBS. emb done and recommend US. (2) S/P laparoscopic assisted vaginal hysterectomy (LAVH): PLAN: Plan patient is s/p lavh POD 1 1. routine ERAS protocol postop care- increase ambulation, encourage oral intake and oral control of pain. lovenox and scds for dvt prophylaxis, patient stable for discharge to home.
[2024-08-08] MEDS: Ensure Plus High Protein 120 ML LIQUID PO (08:54)
[2024-08-08] MEDS: Docusate Sodium 100 MG Capsule PO (09:17)
[2024-08-08 09:30] VITALS: BP 117/56; PULSE 90; RESP 18; TEMP 36.7; O2SAT 97
== END 2024-08-08 09:42 | disposition home or self-care (01) ==
LOC: SDC 14:50 → MS3 14:50
PROVIDERS: Anesthesiology; Admitting Provider Obstetrics & Gynecology; Referring Provider Obstetrics & Gynecology; Visit Provider Obstetrics & Gynecology
PROC: 0UT9FZZ Resection of Uterus, Via Natural or Artificial Opening With Percutaneous Endoscopic Assistance (ICD-10-PCS; CPT 58552; principal; 2024-08-07 07:50)
DX: N93.9 Abnormal uterine and vaginal bleeding, unspecified (principal); N92.0 Excessive and frequent menstruation with regular cycle; D50.9 Iron deficiency anemia, unspecified; Z79.899 Other long term (current) drug therapy
CPT/HCPCS: 58552; 36415; 81025; 82962; 83735; 85027; 86850; 86900; 86901; 88307; 96372; 96374; 96375; 96376; 99221; G0378; J2405; J3475

== ENCOUNTER 2024-08-21 11:00 | Day surgery (SDC) | payer MEDICAID, SELFPAY ==
[2024-08-21] VITALS (14 sets, daily range): BP systolic 99–140; BP diastolic 55–95; PULSE 78–108; RESP 14–18; TEMP 36.4–37; O2SAT 98–100; BMI 25.1
--- NOTE | 2024-08-21 11:54 | EDS_ITS ---
HPI HPI - Female History of Present Illness Chief Complaint: Vag Bleeding Informant: patient Pain Pain: Positive for Pelvic Pain Onset: Days (3) Context: Sudden Onset Timing: Continuous Quality: Positive for Aching Location: LLQ and Suprapubic Worsened by: Movement Relieved by: - (Nothing) Bleeding Issue: Positive for Vaginal bleeding Onset: Days (3) Context: Sudden Onset Timing: Continuous Associated Symptoms Associated Symptoms: Negative for Dysuria or Frequency Narrative Narrative: Patient presents with vaginal bleeding and cramping that has been getting worse over the past 3 days. Patient states she had a hysterectomy 2 weeks ago. Clarisa ent states that she had her follow-up appointment today and was referred to the emergency department. Patient states that they did a urinalysis in the office and a CBC. Patient states she was referred for a CT scan. Patient denies any fevers or chills. Patient denies any nausea or vomiting. Patient states her pain is over the left lower abdomen and radiates into her back. Patient states it is aching but cramping and sharp with movement and activity. PFSH PFS Medical History Pre-op testing Wears glasses Alcohol use History of steroid therapy Anemia Family history of eosinophilic esophagitis Difficulty swallowing History of ulceration Non-smoker Asthma Iron deficiency anemia Abnormal Pap smear of cervix Home Medications ?Medication ?Instructions ?Recorded ?Last Taken ?Type elderberry fruit 50 mg/5 mL oral 50 mg PO .QOD 07/24/24 Unknown History syrup naproxen 500 mg tablet 500 mg PO BID PRN PRN Pain #30 tabs 08/07/24 Unknown Rx hydrocodone-acetaminophen 5-325mg 1 tab PO Q6H PRN pain 5 days #20 08/16/24 Unknown Rx 5mg-325mg tabs Allergy/AdvReac Type Severity Reaction Status Date / Time Environmental Allergies: Allergy Severe RASH Verified 08/21/24 11:02 Uncoded (pine) latex Allergy Severe Other Verified 08/21/24 11:02 Family History Grandfather Heart disease Mother Thyroid disorder Grandmother Leukemia Surgical History (Updated 08/21/24 @ 11:[address] 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 ROS ROS ED Constitutional Constitutional ED: Denies chills or fever(s) Eyes Eyes: Denies blurry vision or change in vision ENT ENT ED: Denies rhinorrhea or sore throat Cardiovascular Cardiovascular: Denies chest pain or palpitations Respiratory/Chest Respiratory/Chest: Denies cough or dyspnea Gastrointestinal Gastrointestinal: Reports abdominal pain; Denies nausea or vomiting Genitourinary Genitourinary ED: Denies dysuria or hematuria Musculoskeletal Musculoskeletal: Reports back pain; Denies neck pain Integumentary Denies abscess or rash Neurologic Neurologic: Denies headache(s) or weakness Allergic/Immunologic Allergic/Immunologic ED: Denies mouth swelling or urticaria EXAM Physical Exam Const Vital Signs: 08/21/24 11:00 08/21/24 13:00 Temperature 98 F Temperature Source Temporal Pulse Rate 89 78 Respiratory Rate 14 16 Blood Pressure 140/89 H 128/85 H Blood Pressure Mean 106 99 Pulse Ox 98 98 Oxygen Delivery Method Room Air Room Air Positive well nourished and well developed General Appearance ED: well developed and NAD HEENT Reports moist mucous membranes Neck supple and no JVD Resp normal respiratory effort and clear to auscultation bilaterally Cardio regular rate and regular rhythm GI soft to palpation and non-distended Palpation: tender LLQ and suprapubic Neuro oriented x3, CN's II-XII intact bilaterally and no sensory deficits noted Sensorium / Orientation: alert Motor Exam: strength 5/5 throughout Psych mental status grossly normal MDM MDM MDM Narrative Medical decision making narrative: Differential diagnosis includes pelvic abscess, intra-abdominal bleeding, anemia, electrolyte abnormality, urinary tract infection, and pyelonephritis. Patient had a CBC prior to arrival. Patient also had a dip urinalysis prior to arrival. Basic metabolic profile will be obtained to assess for renal function and electrolyte abnormality. CT scan of the abdomen and pelvis will be obtained to assess for abscess, bleeding, and pyelonephritis. Lab Data Attestation: I reviewed the patient's lab results. Lab results narrative: Outpatient CBC was reviewed. Hemoglobin was 11.4 and hematocrit was 35.9. This was slightly decreased from previous result. White blood cell count was normal. Platelets were normal. Dip urinalysis was reviewed there was large blood but no evidence of any urinary tract infection. Basic metabolic profile was reviewed and was essentially within normal limits. Labs: Laboratory Results - last 24 hr 08/21/24 11:30 Sodium 139 Potassium 4.0 Chloride 106 Carbon Dioxide 29.0 Anion Gap 4 L BUN 10 Creatinine 0.65 Estim Creat Clear Calc 113.32 Est GFR (MDRD) Af Amer 132 Est GFR (MDRD) Non-Af 109 BUN/Creatinine Ratio 15.3 Glucose 91 Calcium 9.6 Radiography Diagnostic Testing: Clinical Impression(s) from Imaging Studies Abdomen/Pelvis CT 08/21/24 12:03 IMPRESSION: Complex fluid collection to the left of the bladder likely a postoperative hematoma which is impinging upon and deviating the bladder to the right. It measures 7.9 x 5.3 x 5.4 cm. There are no bubbles of air within it or air-fluid level to suspect abscess No suspicious solid organ abnormality No free intraperitoneal fluid, air, or suspicious adenopathy Electronically Signed: Franklin Sierra MD at 12:53 EST Reading Location ID and State: [facility] / [place] , Service support , CT scan of the abdomen and pelvis was obtained. There is a complex fluid collection left of the bladder, likely postoperative hematoma which is deviating the bladder to the right. It measures 7.9 x 5.3 x 5.4 cm. There is no air bubbles or air-fluid levels to suggest abscess. This was interpreted by the radiologist and was also independently reviewed by myself. Management Discussion w/another healthcare provider: Vendor Management Consultant (Dr. Scott) Treatment and Re-Evaluation Narrative: Patient was given IV fluids, morphine, and Zofran. Patient was advised of her findings. Case was discussed with Dr. Scott. She was in to evaluate the patient. She will take the patient to the operating room for laparoscopy. Patient was maintained NPO. Patient understood and was agreeable with the plan. All questions were answered. Discharge Plan Triage Chief Complaint: Vag Bleeding ED Provider: Luis Covington Dx/Rx/DC Orders Prescriptions: No Action elderberry fruit 50 mg/5 mL syrup 50 mg PO .QOD naproxen 500 mg tablet 500 mg PO BID PRN PRN (Reason: Pain) Qty: 30 1RF hydrocodone-acetaminophen 5-325 mg tablet 1 tab PO Q6H PRN (Reason: pain) 5 Days Qty: 20 0RF Primary Care Provider: DIONTE ACEVEDO Referrals: DIONTE ACEVEDO [Other] Print Language: Tuvaluan
--- NOTE | 2024-08-21 12:03 | CT_ITS ---
STUDY: CT ABDOMEN AND PELVIS WITH CONTRAST REASON FOR EXAM: Female, 34 years old. Diffuse abdominal pain, recent hysterectomy RADIATION DOSAGE (If Supplied By Facility): CTDIvol = ( 10.66 ) mGy, DLP = ( 998.87 ) mGycm TECHNIQUE: Transaxial images were obtained from the dome of the diaphragm to the symphysis pubis without oral contrast. IV 100mL Isovue-370 was administered. Sagittal and coronal images were reconstructed. Individualized dose optimization techniques were used for this CT. COMPARISON: No recent studies, previous ultrasound from 09/27/2023 FINDINGS: The visualized lung bases are unremarkable. The visualized portions of the heart are within normal limits. Normal liver. Normal gallbladder and extrahepatic biliary system. Normal spleen. Normal pancreas. Normal bilateral adrenal glands. Normal right kidney. Normal left kidney. Normal visualized stomach. Normal small intestine. Normal colon. The appendix is visualized and appears normal. Appendix seen on coronal recon images 37 through 51 Normal abdominal aorta. Normal inferior vena cava. Normal retroperitoneum. Normal urinary bladder. To the left of the bladder is a poorly defined complex cystic structure likely representing a postoperative hematoma. Measures 7.9 x 5.3 x 5.4 cm and is impinging upon the bladder and displacing the bladder to the right. Collection measures between 11 and 18 Hounsfield units. Normal abdominal wall. Normal osseous structures. CT/Abdomen/Pelvis W IV Cont ONLY IMPRESSION: Complex fluid collection to the left of the bladder likely a postoperative hematoma which is impinging upon and deviating the bladder to the right. It measures 7.9 x 5.3 x 5.4 cm. There are no bubbles of air within it or air-fluid level to suspect abscess No suspicious solid organ abnormality No free intraperitoneal fluid, air, or suspicious adenopathy Electronically Signed: Franklin Sierra MD at 12:53 EST ,
[2024-08-21] MEDS: 0.9% Normal Saline (1000mL) 1,000 ML 1000 ML IV (12:14)
[2024-08-21] MEDS: Ondansetron 4 MG/2 ML Vial IV ×2 (12:15→19:20)
[2024-08-21] MEDS: Morphine 4 MG/ML Syringe IV ×2 (12:15→14:41)
[2024-08-21 12:29] LABS: Anion Gap 4 (5-15); BUN 10 mg/dL (7-18); BUN/Creat Ratio 15.3 RATIO (10-20); Calcium,Total 9.6 mg/dL (8.5-10.1); Chloride 106 mmol/L (98-107); Creatinine, Serum 0.65 mg/dL (0.55-1.02); EST Glomerular Filtration Rate 109 mL/min (>60); Est Glom Filt Rate - Afr Amer 132 mL/min (>60); Estimated Creatinine Clearance 113.32 ml/min; Glucose 91 mg/dL (74-106); Sodium Level 139 mmol/L (136-145)
--- NOTE | 2024-08-21 15:04 | HP.PCM_ITS ---
History and Physical Date of Admission: 08/21/24 HPI: This is a 34 y/o who is status post [facility] last week with Dr. Dixon who presents to [facility] ER with the complaint of left lower quadrant pain and bladder spasms. She was found to have some dark vaginal bleeding that did not seem to be presenting from any particular site of dehiscence per the nurse practitioner. CBC showed a slight dip in her hg from 12 to 11 . SHe does not feel short of breath or diaphoretic. CT showed the following: FINDINGS: The visualized lung bases are unremarkable. The visualized portions of the heart are within normal limits. Normal liver. Normal gallbladder and extrahepatic biliary system. Normal spleen. Normal pancreas. Normal bilateral adrenal glands. Normal right kidney. Normal left kidney. Normal visualized stomach. Normal small intestine. Normal colon. The appendix is visualized and appears normal. Appendix seen on coronal recon images 37 through 51 Normal abdominal aorta. Normal inferior vena cava. Normal retroperitoneum. Normal urinary bladder. To the left of the bladder is a poorly defined complex cystic structure likely representing a postoperative hematoma. Measures 7.9 x 5.3 x 5.4 cm and is impinging upon the bladder and displacing the bladder to the right. Collection measures between 11 and 18 Hounsfield units. Normal abdominal wall. Normal osseous structures. CT/Abdomen/Pelvis W IV Cont ONLY IMPRESSION: Complex fluid collection to the left of the bladder likely a postoperative hematoma which is impinging upon and deviating the bladder to the right. It measures 7.9 x 5.3 x 5.4 cm. There are no bubbles of air within it or air-fluid level to suspect abscess No suspicious solid organ abnormality No free intraperitoneal fluid, air, or suspicious adenopathy Allergies No Known Allergies Allergy (Verified 06/28/24 15:17) Medications ?Medication ?Instructions ?Recorded ?Confirmed ?Type iron infusions IV 01/21/21 06/28/24 History Is last menstrual period known: Yes Last Menstrual Period: 06/14/24 Post menopausal: No Patient : No : No [facility] Medical History Iron deficiency anemia Abnormal Pap smear of cervix Surgical History History of esophagogastroduodenoscopy (EGD) S/P Family History Grandfather Heart diseaseMother Thyroid disorderGrandmother Leukemia Social History number of children: 4 current occupational status: employed current occupation: [employer] in [place] Smoking Status: Never smoker alcohol intake: never substance use type: does not use caffeine: Yes (rarely) what type of physical activity do you participate in: none seatbelt use: always do you feel safe at home: Yes additional social history: - 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 IR is not available today due to the holiday. After discussing the patient's diagnosis and treatment plan options, patient wishes to proceed with surgical management. I have discussed with the patient the risks, benefits, and alternatives of the procedure which include but are not limited to risks of anesthesia, bleeding, infection, possible damage to bowel, bladder, or surrounding vasculature which could lead to additional surgery to evaluate any complications. Patient agrees to procedure and wishes to proceed. ACOG/uptodate references given for additional information regarding procedure. plan is for diagnostic laparoscopy, evacuation of hematoma
--- NOTE | 2024-08-21 15:57 | PRE.ANES_ITS ---
ASA Classification* ASA Classification ASA Classification: 2 and E Assessment & Plan Anesthesia* Anesthesia Assessment Anesthesia Assessment: Discussed sedation and/or anesthesia options, risks, benefits, and alternatives with patient/parents/legal guardian/POA. Questions invited. The patient/parents/legal guardian/POA seems to understand and agrees to proceed with anesthesia plan. Reviewed the physical assessment, medical history, allergy history and patient home medications list prior to surgery/procedure/anesthetic and documented any changes. Performed airway and anesthesia risk assessments. Anesthesia Type Anesthesia Type: General Anesthesia Focused Assessment* Temperature: 98.6 F Pulse Rate: 79 Blood Pressure: 124/95 Respiratory Rate: 18 Pulse Ox: 98 Airway Assessment Mouth opens: >3 cm Mallampati Score: II Focused Labs Anesthesia Preop lab: CBC WBC 9.5 K/mm3 (4.4-11.0) 08/21/24 10:41 RBC 4.05 M/mm3 (4.2-5.4) L 08/21/24 10:41 Hgb 11.4 g/dL (12.0-15.0) L 08/21/24 10:41 Hct 35.9 % (37-47) L 08/21/24 10:41 Plt Count 439 K/mm3 (150-450) 08/21/24 10:41 CHEMISTRY Potassium 4.0 mmol/L (3.5-5.1) 08/21/24 11:30 Sodium 139 mmol/L (136-145) 08/21/24 11:30 Magnesium 2.3 mg/dL (1.6-2.6) 08/04/24 10:39 BUN 10 mg/dL (7-18) 08/21/24 11:30 Creatinine 0.65 mg/dL (0.55-1.02) 08/21/24 11:30 Glucose 91 mg/dL (74-106) 08/21/24 11:30 POC Glucose 106 mg/dL (74-106) 08/07/24 07:16 COAG PT 12.3 SECONDS (11.7-14.9) 03/15/19 14:35 Urine Test Negative Negative 08/07/24 06:20 Tst Clinic Negative 05/28/21 11:30 Pre-Assessment Diagnosis/Proposed Procedure Planned Operative Procedure(s): diagnostic laparoscopy, evacuation hematoma Anesthesia History Anesthesia History - solderer assembly repair: Anesthesia History - solderer assembly repair Hx Hospitalization No 07/24/24 08:38 Any Problems With Anesthesia No 08/21/24 15:06 Cholinesterase deficiency No 08/21/24 15:06 You/Your Family Experience No 08/21/24 15:06 fever (hyperthermia) with Relationship Recent Exposure to Contagious No 08/21/24 15:06 Disease Does patient have nerve No 08/21/24 15:06 stimulator Patient instructed to have No 08/21/24 15:06 device shut off --Does patient have Pacemaker No 08/21/24 15:06 or ICD? When Was Last Pacemaker Check QUESTION #4 FULL TEXT: You/Your Family Experience fever (hyperthermia) with Anesthesia Last Oral Intake Last Oral intake: Last Oral Intake NPO since 08:00 08/21/24 15:06 Meds taken in AM with sips of water? Meds patient instructed to take am of surgery PONV PONV - solderer assembly repair: PONV - solderer assembly repair Female HX of Motion Sickness HX of N/V After Surgery Non-Smoker Duration of Surgery greater than 60 minutes Number of Risk Factors PONV Score Height & Weight Height & Weight: Anesthesia: Height & Weight Height 5 ft 4 in 08/21/24 15:06 Weight: 66.5 kg 08/21/24 15:06 Body Mass Index (BMI) 25.1 08/21/24 15:06 Respiratory Assessment Respiratory Assessment - solderer assembly repair: Respiratory Tract Infection Hx - solderer assembly repair Hx Respiratory Tract Infection No 08/21/24 15:06 STOP Sleep Apnea STOP Sleep Apnea - solderer assembly repair: STOP Sleep Apnea - solderer assembly repair Hx Hypertension No 08/21/24 15:06 Hx Sleep Apnea No 08/21/24 15:06 CPAP BIPAP Do you snore loudly (louder No 08/21/24 15:06 than talking or can be heard Do you often feel tired/ Yes 08/21/24 15:06 fatigued/ sleepy during daytime? Has anyone observed you stop No 08/21/24 15:06 breathing during sleep? STOP Results Negative 08/21/24 15:06 QUESTION #5 FULL TEXT : Do you snore loudly (louder than talking or can be heard through closed doors)? 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 Specify any problems Hx of Preganancy in last 3 Months Nurse Filling Out Transfusion & Questions: Date: Time: Patient unable to answer at this time (ie. confused, unrespo /Reproduction History /Reproductive History - solderer assembly repair: /Reproductive Hx- solderer assembly repair Hx Now No 08/21/24 15:06 Gestational Age (in weeks): EDC: Hx Hx Para Hx Section SAB No 08/21/24 15:06 Active Medications Active Medications: Current Medications Generic Name Dose Route Start Last Admin Trade Name Freq PRN Reason Stop Dose Admin Sodium Chloride 1,000 mls @ 15 mls/hr 08/21/24 15:55 IV 08/27/24 05:14 .Q48H [facility] Protocol PFSH Medical History Pre-op testing Wears glasses Alcohol use History of steroid therapy Anemia Family history of eosinophilic esophagitis Difficulty swallowing History of ulceration Non-smoker Asthma Iron deficiency anemia Abnormal Pap smear of cervix Home Medications ?Medication ?Instructions ?Recorded ?Last Taken ?Type elderberry fruit 50 mg/5 mL oral 50 mg PO .QOD 07/24/24 Unknown History syrup naproxen 500 mg tablet 500 mg PO BID PRN PRN Pain #30 tabs 08/07/24 Unknown Rx hydrocodone-acetaminophen 5-325mg 1 tab PO Q6H PRN pain 5 days #20 08/16/24 Unknown Rx 5mg-325mg tabs Allergy/AdvReac Type Severity Reaction Status Date / Time Environmental Allergies: Allergy Severe RASH Verified 08/21/24 11:02 Uncoded (pine) latex Allergy Severe Other Verified 08/21/24 11:02 Family History Grandfather Heart disease Mother Thyroid disorder Grandmother Leukemia Surgical History History of hysterectomy History of removal of skin mole History of esophagogastroduodenoscopy (EGD) S/P Social History number of children: 4 current occupational status: employed current occupation: [employer] in [place] Smoking Status: Never smoker alcohol intake: never substance use type: does not use caffeine: Yes (rarely) what type of physical activity do you participate in: none seatbelt use: always do you feel safe at home: Yes 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
[2024-08-21] MEDS: 0.9% Normal Saline (1000mL) 1,000 ML 15 ML IV ×2 (16:00→18:29)
--- NOTE | 2024-08-21 17:07 | DCINST_ITS ---
Discharge Instructions Diet Discharge Diet: No restrictions DC O2, CPAP, BIPAP needs Home O2 Discharge instructions: No Dressing / Incision Discharge Activity: Return to Normal Activity, May Not Drive (for two weeks or while taking narcotic pain medications.), May Shower and May Take a Tub Bath (in 7 days) May resume sexual activity in: 1 week Weight Bearing Status: Full weight bearing Dressing / Incision Call your doctor if you observe: Using more than 1 pad per hour, Shortness of breath, Chest pain and Uncontrolled pain Suture Line Care: Avoid Pulling/Pushing and Avoid Pinching/Bending Remove Dressing in: 1 week (if present) Cleanse incision/area with: Soap & Water and Keep Dressing Clean & Dry Follow Up Care Please Follow Up With: Zhanna Craven DO When: Call to make an appointment with your doctor for a follow up incision check in 1-2 weeks. Test Results: Test results from this visit will be discussed in further detail at your follow- up appointment, if applicable. Discharge Plan Admission Primary Reason for Your Visit: Diagnostic laparoscopy evacuation of hematoma Attending Provider: Zhanna Craven Primary Care Provider: DIONTE ACEVEDO Instructions Print Language: Occitan Discharge Orders/Prescriptions Prescriptions: New hydrocodone-acetaminophen 5-325 mg tablet 1 tab PO Q4H PRN (Reason: pain) 7 Days Qty: 30 0RF Continued elderberry fruit 50 mg/5 mL syrup 50 mg PO .QOD naproxen 500 mg tablet 500 mg PO BID PRN PRN (Reason: Pain) Qty: 30 1RF hydrocodone-acetaminophen 5-325 mg tablet 1 tab PO Q6H PRN (Reason: pain) 5 Days Qty: 20 0RF Referrals / Follow Up: DIONTE ACEVEDO [Other] Disposition Disposition (needs filled in before D/C Order can be placed): Home, Self Care
[2024-08-21] MEDS: Bupivacaine 0.25% 30 ML Vial (17:58)
--- NOTE | 2024-08-21 18:06 | OP.PCM_ITS ---
Problems Associated Problem List Diagnoses (1) Hematoma: (2) Pelvic pain: Multi Select Codes Urinary/Genital Urinary/Genital CPT Codes: Other Procedure See Report (diagnostic laparoscopy, evacuation of hematoma. ) Operative Report (Standard) Operative Information Date of Procedure: 08/21/24 Pre-Operative Diagnosis: Postoperative hematoma compressing the bladder Post-Operative Diagnosis: Postoperative hematoma compressing the bladder Surgery/Procedure Performed: Diagnostic laparoscopy evacuation of hematoma documentation engineer: Yes Enterprise Systems Manager: Parrish Pascual Tasks completed by assistant controller: Closing and Retracting Additional drug safety assistant?: No Type of Anesthesia: General RN Documented Start/Stop Times: Operation Date: 08/21/24 14:35 Case Time Into Pre-Op 08/21/24 15:54 Out of Pre-Op 08/21/24 17:18 Anesthesia Start 08/21/24 17:20 Into Room 08/21/24 17:20 Procedure Start 08/21/24 17:38 Procedure End 08/21/24 18:00 Out of Room 08/21/24 18:08 Anesthesia End 08/21/24 18:09 Into Recovery 08/21/24 18:11 Out of Recovery 08/21/24 19:05 Into Phase II Recovery 08/21/24 19:06 Out of Phase II 08/21/24 19:52 Procedure Start Time: 17:38 Procedure Stop Time: 18:00 Select all DRAINS/GRAFTS/IMPLANTS that apply: None Estimated Blood Loss: 75cc Specimen collected: No Description of surgery: Patient was brought to the operating room and general anesthesia was found to be adequate she was prepped and draped in normal sterile fashion her legs were placed in stirrups and a sponge stick was placed in the vagina. A 5 mm incision was made in the umbilicus and a 5 Banks trocar meter trocar was inserted into the abdomen under direct visualization using the Visiport. The left lower quadrant 5 mm trocar was also inserted into the abdomen under direct visualization. The patient was placed in Trendelenburg position initially the abdomen appeared clean and dry and intact however a bulge of the tissue was seen coming from the peritoneum overlying the bladder space. This was gently probed and there was noted to be a dark material coming from suture sites. This was gently opened using blunt dissection and the large amount of clot expelled. This was suction irrigated out and the space between the peritoneum and the bladder was irrigated copiously. Hemoblast was applied to these to this area as it appeared somewhat raw once it was opened. However no actual site of arterial or venous bleeding was noted. A Urbina catheter was then used to flush the bladder and clear urine returned this was performed to ensure that the bladder was not compromised. The vaginal cuff was then examined externally and found to be intact. It appeared that the suture that was taken down was only a peritoneal stitch. The decision was made to leave this space open to allow for further draining as needed. The patient tolerated the procedure well sponge lap needle counts were correct x 2 and she is now being brought to the recovery room in stable condition. Surgical Findings: Retroperitoneal hematoma posterior to the bladder. Complications Complications: No Admit VTE Documentation VTE Present on Admission: No VTE Mechan Device Prophylaxis: SCD's VTE Pharm Prophylaxis ordered?: No
--- NOTE | 2024-08-21 18:16 | PCM.POST.ANE ---
Anesthesia: Postop Eval I Current Vital Signs Temperature: 97.5 F Pulse Rate: 103 Blood Pressure: 122/76 Respiratory Rate: 17 Pulse Ox: 98 Oxygen Delivery Method: Room Air Assessment Airway patent: Yes Spontaneous unlabored respirations: Yes Mental status: Awake and Calm nausea: No Vomiting: No Anesthesia Complication: No Fluid Hydration Crystalloid volume administer (ml): 1,000 Total IV fluid infused: 1,000 Progress Note Anesthesia document: Postop Eval 1 completed: Yes
[2024-08-21] MEDS: HYDROcodone Bitartrate/Apap 5/325 Tablet PO (19:20)
[2024-08-21] MEDS: Ibuprofen 400 MG Tablet 800 MG PO (19:20)
--- NOTE | 2024-08-21 20:06 | POSTOPAN2_ITS ---
Anesthesia Postop Eval I Sum Postop Eval Completion status Anesthesia document: Postop Eval 1 completed: Yes Anesthesia Postop Eval I Summary Anesthesia Postop Eval I Summary: Anesthesia Postop Eval I: Assessment Summary Airway patent Yes 08/21/24 18:17 LEARNING AND DEVELOPMENT [email or web address] Spontaneous unlabored Yes 08/21/24 18:17 LEARNING AND DEVELOPMENT [email or web address] respirations Mental status Awake,Calm 08/21/24 18:17 LEARNING AND DEVELOPMENT [email or web address] nausea No 08/21/24 18:17 LEARNING AND DEVELOPMENT [email or web address] Vomiting No 08/21/24 18:17 LEARNING AND DEVELOPMENT [email or web address] Anesthesia Postop Eval I: Fluid Summary Crystalloid volume administer 1,000 08/21/24 18:17 LEARNING AND DEVELOPMENT [email or web address] (ml) Colloids volume administered ( ml) Blood Product volume administered (ml) Total IV fluid infused 1,000 08/21/24 18:17 LEARNING AND DEVELOPMENT [email or web address] Anesthesia Postop Eval I: Summary Notes Anesthesia Complication No 08/21/24 18:17 LEARNING AND DEVELOPMENT [email or web address] Anesthesia Complication Comment: Post-operative progress note Anesthesia: Postop Eval II Evaluation Mental status: Awake Pain Level: 2 nausea: No Vomiting: No
--- NOTE | 2024-08-21 20:06 | PCM.POSTANE2 ---
Anesthesia Postop Eval I Sum Postop Eval Completion status Anesthesia document: Postop Eval 1 completed: Yes Anesthesia Postop Eval I Summary Anesthesia Postop Eval I Summary: Anesthesia Postop Eval I: Assessment Summary Airway patent Yes 08/21/24 18:17 [email or web address] Spontaneous unlabored Yes 08/21/24 18:17 [email or web address] respirations Mental status Awake,Calm 08/21/24 18:17 [email or web address] nausea No 08/21/24 18:17 [email or web address] Vomiting No 08/21/24 18:17 [email or web address] Anesthesia Postop Eval I: Fluid Summary Crystalloid volume administer 1,000 08/21/24 18:17 [email or web address] (ml) Colloids volume administered ( ml) Blood Product volume administered (ml) Total IV fluid infused 1,000 08/21/24 18:17 [email or web address] Anesthesia Postop Eval I: Summary Notes Anesthesia Complication No 08/21/24 18:17 [email or web address] Anesthesia Complication Comment: Post-operative progress note Anesthesia: Postop Eval II Evaluation Mental status: Awake Pain Level: 2 nausea: No Vomiting: No
== END 2024-08-21 19:52 | disposition home or self-care (01) ==
LOC: ED 15:02 → SDC 15:41 → ACINP 15:42
PROVIDERS: Emergency Provider Emergency Medicine; Visit Provider Obstetrics & Gynecology
PROC: (CPT 49320; principal; 2024-08-21 14:20)
DX: K68.3 Retroperitoneal hematoma (principal); N93.9 Abnormal uterine and vaginal bleeding, unspecified; N32.89 Other specified disorders of bladder; R10.32 Left lower quadrant pain; Z90.710 Acquired absence of both cervix and uterus; Z79.899 Other long term (current) drug therapy
CPT/HCPCS: 49322; 00840; 36415; 74177; 80048; 85025; 87086; 87088; 99284; Q9967; J2405

== ENCOUNTER → 2024-08-21 | Outpatient (CLI) | payer MEDICAID, SELFPAY ==
[2024-08-21 12:07] LABS: Absolute Lymphocyte Count 1.69 X10^3/uL (0.83-4.51); Absolute Neutrophil Count 6.8 X10^3/uL (2.0-7.7); Basophil# 0.06 X10^3/uL; Basophil% 0.6 % (0-1); Eosinophil# 0.47 X10^3/uL; Eosinophils% 4.9 % (0-5); Hematocrit 35.9 % (37-47); Hemoglobin 11.4 g/dL (12.0-15.0); Lymphocyte # 1.69 X10^3/ul (0.83-4.51); Lymphocyte % 17.7 % (19-41); Mean Corp Hgb Conc 31.8 g/dL (32-36); Mean Corpuscular Hgb 28.1 pg (27.0-32.0); Mean Corpuscular Volume 88.6 fL (81-99); Mean Platelet Vol. 9.3 fl (6.2-12.0); Monocyte# 0.52 X10^3/uL; Monocyte% 5.5 % (0-10); NRBC Flagged by Analyzer 0 % (0-5); Neutrophil # 6.76 X10^3/uL (2.7-7.7); Neutrophil % 70.9 % (47-70); Platelet Count 439 K/mm3 (150-450); RBC Distribution Width CV 12.9 % (11.6-14.6); RBC Distribution Width SD 42.3 fl (35.1-43.9); Red Blood Count 4.05 M/mm3 (4.2-5.4); White Blood Count 9.5 K/mm3 (4.4-11.0)
== END | disposition home or self-care (01) ==
LOC: BWCLAB 10:41
PROVIDERS: Referring Provider Nurse Practitioner Women's Health; Visit Provider Nurse Practitioner Women's Health
DX: N99.820 Postprocedural hemorrhage of a genitourinary system organ or structure following a genitourinary system procedure (principal); R30.0 Dysuria; Z90.710 Acquired absence of both cervix and uterus
CPT/HCPCS: 36415; 85025; 87086; 87088; J2405

== ENCOUNTER → 2024-08-29 | Outpatient (CLI) | payer OTHER, SELFPAY | END | disposition home or self-care (01) | PROVIDERS: Referring Provider Obstetrics & Gynecology; Visit Provider Obstetrics & Gynecology | DX: R30.0 Dysuria (principal) | CPT/HCPCS: 87086; 87088 ==

== ENCOUNTER → 2024-09-21 | Outpatient (CLI) | payer OTHER, SELFPAY ==
--- NOTE | 2024-09-21 16:57 | US_ITS ---
PROCEDURE: PELVIC W/ TRANSVAGINAL REASON FOR EXAM: Pain TECHNIQUE: Transabdominal and transvaginal pelvic ultrasound COMPARISON: None. FINDINGS: Uterus surgically absent. Bilateral ovaries are identified with preserved symmetric vascular flow; there is an ovoid complex area identified near the left adnexa measuring approximately 3.1 x 2.8 x 2.0 cm which is nonspecific. Clinical and imaging surveillance of this is advised. US/Pelvic w/ Transvaginal IMPRESSION: Nonspecific left adnexal mass for which clinical and imaging surveillance is ad vised. Reading Location: [facility]
== END | disposition home or self-care (01) ==
LOC: US 16:51
PROVIDERS: PCP Family Medicine; Referring Provider Obstetrics & Gynecology; Visit Provider Obstetrics & Gynecology
DX: R10.2 Pelvic and perineal pain (principal)
CPT/HCPCS: 76830; 76856

== ENCOUNTER → 2024-11-05 | Outpatient (CLI) | payer OTHER, SELFPAY ==
--- NOTE | 2024-11-05 17:50 | US_ITS ---
PROCEDURE: PELVIC W/ TRANSVAGINAL REASON FOR EXAM: HEMATOMA COMPARISON: 09/21/2024 FINDINGS Uterus has been removed. No fluid collection. Both ovaries are normal in size echotexture and vascularity. The right measures 3.0 x 2.5 x 1.9 cm. The left measures 2.6 x 2.2 x 2 cm. US/Pelvic w/ Transvaginal IMPRESSION: Hysterectomy changes. No features of complication. If persistent concern, con surgery technician CT imaging Reading Location: [id number]
== END | disposition home or self-care (01) ==
LOC: US 17:50
PROVIDERS: PCP Family Medicine; Referring Provider Obstetrics & Gynecology; Visit Provider Obstetrics & Gynecology
DX: R10.2 Pelvic and perineal pain (principal); T14.8XXA Other injury of unspecified body region, initial encounter; X58.XXXA Exposure to other specified factors, initial encounter
CPT/HCPCS: 76830; 76856